=== PATIENT | female | born 1960 | race American Indian/Alaskan Native ===

== ENCOUNTER 2020-07-27 16:09 | Inpatient (IN) | payer MEDICARE ==
--- NOTE | 2020-07-27 17:15 | Emergency Department Report ---
ED General Adult HPI - General Chief complaint: Recheck/Abnormal Lab/Rx Stated complaint: HIGH SODIUM LEVEL PUI?: No Time Seen by Provider: 07/27/20 16:47 Source: EMS ( EMS documentation not available at time of chart dictation ), RN notes reviewed Mode of arrival: Stretcher Limitations: Altered Mental Status, Physical Limitation - History of Present Illness Initial comments: The patient was evaluated in the emergency department for symptoms described in the history of present illness. He/she was evaluated in the context of the global COVID-19 pandemic, which necessitated consideration that the patient might be at risk for infection with the virus that causes COVID-19. Institutional protocols and algorithms that pertain to the evaluation of patients at risk for COVID-19 are in a state of rapid change based on informa tion released by regulatory bodies including the CDC and federal and state organizations. These policies and algorithms were followed during the patient's care in the emergency department. Please note that these policies, procedures and recommendations changed on a rapid basis. Primary CARE doctor: Dr. oKnrad Johnston The patient is a 59-year-old female. She is not known to myself previously. Her past medical history includes high cholesterol, hypertension, insomnia, rhinitis, muscular spasm, dementia, renal insufficiency, seizure disorder The patient is sent to the emergency room by her local [facility] with a reported complaint of "high sodium levels." Patient herself is nonverbal. Patient herself is not able to describe the exacerbating, relieving factors of her presentation, qualitative nature of her symptoms, or radiation factors. The patient is bedbound, nonverbal, but awake. Patient is not accompanied by friends or family at this time for additional information or for collateral information. -: unknown Quality: other Consistency: other Improves with: other Worsens with: other Associated Symptoms: other Treatments Prior to Arrival: other - Related Data Home Medications Medication Instructions Recorded Confirmed Last Taken Acetaminophen [Tylenol] 2 tab PO BID 07/27/20 07/27/20 Unknown Hydralazine HCl 50 mg PO Q8HR 07/27/20 07/27/20 Unknown Melatonin [Melatonin 3MG TAB 3 mg PO QDAY 07/27/20 07/27/20 Unknown RAPDIS] NIFEdipine [Nifedipine ER] 60 mg PO QDAY 07/27/20 07/27/20 Unknown Sennosides [Senna] 2 tab PO DAILY PRN 07/27/20 07/27/20 Unknown Sertraline HCl [Zoloft] 2 tab PO QAM 07/27/20 07/27/20 Unknown donepeziL [Aricept] 10 mg PO QHS 07/27/20 07/27/20 Unknown levETIRAcetam [Keppra] 500 mg PO BID 07/27/20 07/27/20 Unknown polyethylene glycoL 3350 [Miralax 17 gm PO QDAY 07/27/20 07/27/20 Unknown 3350] Allergies Allergy/AdvReac Type Severity Reaction Status Date / Time Unable to Assess Allergy Unverified 07/27/20 19:41 ED Review of Systems ROS: Stated complaint: HIGH SODIUM LEVEL Other details as noted in HPI Comment: Unobtainable due to pts medical conditions ED Past Medical Hx - Medications Home Medications: Home Medications Medication Instructions Recorded Confirmed Last Taken Type Acetaminophen [Tylenol] 2 tab PO BID 07/27/20 07/27/20 Unknown History Hydralazine HCl 50 mg PO Q8HR 07/27/20 07/27/20 Unknown History Melatonin [Melatonin 3MG TAB 3 mg PO QDAY 07/27/20 07/27/20 Unknown History RAPDIS] NIFEdipine [Nifedipine ER] 60 mg PO QDAY 07/27/20 07/27/20 Unknown History Sennosides [Senna] 2 tab PO DAILY PRN 07/27/20 07/27/20 Unknown History Sertraline HCl [Zoloft] 2 tab PO QAM 07/27/20 07/27/20 Unknown History donepeziL [Aricept] 10 mg PO QHS 07/27/20 07/27/20 Unknown History levETIRAcetam [Keppra] 500 mg PO BID 07/27/20 07/27/20 Unknown History polyethylene glycoL 3350 [Miralax 17 gm PO QDAY 07/27/20 07/27/20 Unknown History 3350] ED Physical Exam - General Limitations: Altered Mental Status, Physical Limitation General appearance: in no apparent distress - Head Head exam: Present: atraumatic, normocephalic - Eye Eye exam: Present: normal appearance, PERRL - ENT ENT exam: Present: normal orophraynx, mucous membranes dry, normal external ear exam - Neck Neck exam: Present: normal inspection. Absent: tenderness, meningismus - Respiratory Respiratory exam: Present: normal lung sounds bilaterally. Absent: respiratory distress, wheezes, rales, rhonchi, stridor, decreased breath sounds - Cardiovascular Cardiovascular Exam: Present: regular rate, normal rhythm, normal heart sounds. Absent: bradycardia, tachycardia, irregular rhythm, systolic murmur, diastolic murmur, rubs, gallop - GI/Abdominal GI/Abdominal exam: Present: soft. Absent: distended, tenderness, rebound, rigid, pulsatile mass - Rectal Rectal exam: Absent: normal inspection (Chronic appearing sacral wounds noted, without active superinfection) - Extremities Exam Extremities exam: Present: normal inspection, other (2+ pulses noted in the bilateral upper and lower extremities. There is no palpable cord. negative Homans sign. Muscular compartments are soft. The pelvis is stable.). Absent: pedal edema, calf tenderness - Back Exam Back exam: Present: normal inspection. Absent: tenderness, CVA tenderness (R), CVA tenderness (L), paraspinal tenderness, vertebral tenderness - Neurological Exam Neurological exam: Present: altered, other (The patient is awake. Extraocular movements intact. The patient is nonverbal. Patient appears to be functionally quadriplegic) - Skin Skin exam: Present: warm, dry, intact, normal color. Absent: rash ED Course Vital Signs 07/27/20 07/27/20 07/27/20 17:38 17:46 17:51 Temperature 96.6 F L Pulse Rate 68 Respiratory 21 Rate Blood Pressure 105/73 O2 Sat by Pulse 99 100 Oximetry 07/27/20 07/27/20 07/27/20 18:00 18:30 19:00 Temperature Pulse Rate 68 70 69 Respiratory 21 22 19 Rate Blood Pressure 105/73 100/72 101/72 O2 Sat by Pulse 100 100 100 Oximetry 07/27/20 07/27/20 07/27/20 19:30 19:46 20:00 Temperature Pulse Rate 73 72 73 Respiratory 22 23 Rate Blood Pressure 101/74 110/80 O2 Sat by Pulse 99 99 Oximetry 07/27/20 07/27/20 20:30 21:00 Temperature 99.5 F Pulse Rate 72 78 Respiratory 23 18 Rate Blood Pressure 111/76 113/82 O2 Sat by Pulse 99 Oximetry - Reevaluation(s) Reevaluation #1: 07/27/20 18:08 Differential diagnosis, include but not limited to: Pneumonia, urinary tract infection, dehydration, electrolyte derangement, laboratory/instrument error Assessment and plan: 59-year-old female, who with mild hypothermia , with reassuring vital signs, demented, with evidence of dry mucous membranes, sent here because of reported high sodium levels. Obtain EKG, urinalysis, x-ray of the chest, appropriate laboratory studies, and reassess. 07/27/20 19:01 Patient started on active patient rewarming. Laboratory studies demonstrate hyponatremia, with sodium of 173. Patient approximately 110 pounds, therefore, she is approximately 50 kg. She will be started on dextrose 5% whole, at 150 cc/h, we will discuss with nephrology, and admit to the medical service. Reevaluation #2: 07/27/20 21:29 Dr Domenica Soto to admit - Consultations Consultation #1: 07/27/20 19:31 Discussed history, physical, pertinent laboratory studies with nephrology on- call, Dr. Jackson. His group will follow in consultation. He agrees with current plan of management. BMP recommended every 4 hours. - EJ/Peripheral Line Neck L Time Out Performed: Yes Indications: multiple IV sites needed Skin Cleansed in Sterile Fashion: Yes Size: 20 Dressing Placed: Tegaderm Patient Tolerated Procedure: well ED Medical Decision Making - Lab Data Result diagrams: 07/27/20 17:55 07/27/20 17:55 Vital Signs 07/27/20 07/27/20 07/27/20 17:38 17:46 17:51 Temperature 96.6 F L Pulse Rate 68 Respiratory 21 Rate Blood Pressure 105/73 O2 Sat by Pulse 99 100 Oximetry - EKG Data -: EKG Interpreted by Me EKG shows normal: sinus rhythm Rate: normal - EKG Data When compared to previous EKG there are: previous EKG unavailable 07/27/20 18:07 Sinus rhythm, 72 bpm, left axis deviation, left anterior fascicular block, left ventricular hypertrophy, abnormal EKG, the EKG is no STEMI, but QTC is within normal limits. - Radiology Data Radiology results: pending, report reviewed, image reviewed interpreted by me: 1 view x-ray of the chest, interpreted by myself, negative for acute findings Print Report Referring Physician: AMAURI SUTTON Patient Name: KEILA BULL Date of : 1960 Sex: Female Report Date: 2020-07-27 Report Status: Finalized Findings [facility] [address] [place] [address] XRay Report Signed Patient: KEILA BULL MR#: [id number] : 1960 Acct:[id number] Age/Sex: 59 / F ADM Date: 07/27/20 Loc: ED Attending Dr: Ordering Physician: AMAURI SUTTON MD Date of Service: 07/27/20 Procedure(s): XR chest 1V ap Accession Number(s): [id number] cc: AMAURI SUTTON MD Fluoro Time In Minutes: CHEST 1 VIEW INDICATION / CLINICAL INFORMATION: Weakness. COMPARISON: None available. FINDINGS: SUPPORT DEVICES: None. HEART / MEDIASTINUM: No significant abnormality. LUNGS / PLEURA: No significant pulmonary or pleural abnormality. No pneumothorax. ADDITIONAL FINDINGS: No significant additional findings. IMPRESSION: No acute pulmonary or pleural abnormality Signer Name: Fernando Morillo MD FACR Signed: 07/27/2020 6:01 PM Workstation Name: [id number] Transcribed By: MS Dictated By: Fernando Morillo MD Electronically Authenticated By: Fernando Morillo MD Signed Date/Time: 07/27/201800 DD/ 00 TD/TT: Critical Care Time: Yes Critical care time in (mins) excluding proc time.: 35 Critical care attestation.: If time is entered above; I have spent that time in minutes in the direct care of this critically ill patient, excluding procedure time. ED Disposition Clinical Impression: Hypothermia, Hypernatremia, Dehydration Disposition: DC-09 OP ADMIT IP TO THIS HOSP Is pt being admited?: Yes Does the pt Need Aspirin: No Condition: Serious Referrals: PRIMARY CARE, [Primary Care Provider] - 3-5 Days
--- NOTE | 2020-07-27 18:06 | XRay Report ---
CHEST 1 VIEW INDICATION / CLINICAL INFORMATION: Weakness. COMPARISON: None available. FINDINGS: SUPPORT DEVICES: None. HEART / MEDIASTINUM: No significant abnormality. LUNGS / PLEURA: No significant pulmonary or pleural abnormality. No pneumothorax. ADDITIONAL FINDINGS: No significant additional findings. IMPRESSION: No acute pulmonary or pleural abnormality Signer Name: Fernando Morillo MD FACR Signed: 07/27/2020 6:01 PM Workstation Name: [id number]
[2020-07-27 18:30] LABS: Basophils % (Auto) 0.5 % (0.0-1.8); Eosinophils % (Auto) 0.6 % (0.0-4.3); Lymphocytes # (Auto) 1.6 K/mm3 (1.2-5.4); Lymphocytes % (Auto) 22.1 % (13.4-35.0); Mean Corpuscular HGB Conc 30 % (30-34); Mean Corpuscular Volume 97 fl (79-97); Monocytes # (Auto) 0.6 K/mm3 (0.0-0.8); Monocytes % (Auto) 7.8 % (0.0-7.3); Platelet Count 149 K/mm3 (140-440); Red Blood Count 3.95 M/mm3 (3.65-5.03); Red Cell Distribution Width 17.6 % (13.2-15.2)
[2020-07-27 18:31] LABS: Hematocrit 38.4 % (30.3-42.9); Hemoglobin 11.4 gm/dl (10.1-14.3)
[2020-07-27 18:47] LABS: INR 1.26 (0.87-1.13)
[2020-07-27 18:48] LABS: Alanine Aminotransferase 5 units/L (7-56); Albumin 3.6 g/dL (3.9-5); Blood Urea Nitrogen 51 mg/dL (7-17); Calcium 9.4 mg/dL (8.4-10.2); Hemolysis Index 3
[2020-07-27 18:52] LABS: BUN/Creatinine Ratio 73
[2020-07-27 19:01] LABS: Bacteria,Urine 1+ /HPF (Negative); Bilirubin,Urine NEG (Negative); Blood,Urine NEG (Negative); Color,Urine Yellow (Yellow); Mucus,Urine 2+ /HPF; Renal Epithelial Cells,Urine 1 /LPF
[2020-07-27] MEDS: DEXTROSE 5% IN WATER 1,000 ML IV SCH (19:57)
[2020-07-27] MEDS ORDERED: ACETAMINOPHEN 325 MG TAB PO PRN (22:02)
[2020-07-27] MEDS ORDERED: ONDANSETRON 4 MG/2 ML INJ IV PRN (22:03)
[2020-07-27 22:05] LABS: Blood Urea Nitrogen 54 mg/dL (7-17); Calcium 9.1 mg/dL (8.4-10.2); Hemolysis Index 8
[2020-07-27 22:23] LABS: BUN/Creatinine Ratio 77
[2020-07-27] MEDS ORDERED: HEPARIN 5,000 UNIT/1 ML VIAL ONE (23:41)
[2020-07-28] MEDS: HEPARIN 5,000 UNIT/1 ML VIAL SUB-Q SCH ×3 (00:12→21:08)
[2020-07-28] MEDS: DEXTROSE 5% IN WATER 1,000 ML IV SCH ×2 (03:54→22:22)
[2020-07-28 07:07] LABS: Blood Urea Nitrogen 49 mg/dL (7-17); Calcium 8.8 mg/dL (8.4-10.2); Hemolysis Index 4
[2020-07-28 07:08] LABS: BUN/Creatinine Ratio 82
--- NOTE | 2020-07-28 07:28 | History and Physical Report ---
History of Present Illness Date of examination: 07/27/20 Date of admission: 07/27/20 21:30 Chief complaint: Elevated Sodium Level History of present illness: 59 year old female brought from a alf because of elevated sodium level . Patient is non verbal and there was no history of nausea or vomiting, No history of chest pain, shortness of breath, fever or chills. Past History Past Medical History: hypertension, renal failure, other (DEMENTIA) Medications and Allergies Allergies Allergy/AdvReac Type Severity Reaction Status Date / Time lisinopril Allergy Unknown Verified 07/27/20 21:47 Home Medications Medication Instructions Recorded Confirmed Last Taken Type Acetaminophen [Tylenol] 2 tab PO BID 07/27/20 07/27/20 Unknown History Aspirin [Aspirin BABY CHEW TAB] 81 mg PO QDAY 07/27/20 07/27/20 Unknown History Atorvastatin Calcium [Lipitor] 80 mg PO QHS 07/27/20 07/27/20 Unknown History Baclofen 5 mg PO TID 07/27/20 07/27/20 Unknown History Hydralazine HCl 50 mg PO Q8HR 07/27/20 07/27/20 Unknown History Losartan [Cozaar] 100 mg PO QDAY 07/27/20 07/27/20 Unknown History Melatonin [Melatonin 3MG TAB 3 mg PO QDAY 07/27/20 07/27/20 Unknown History RAPDIS] NIFEdipine [Nifedipine ER] 60 mg PO QDAY 07/27/20 07/27/20 Unknown History Sennosides [Senna] 2 tab PO DAILY PRN 07/27/20 07/27/20 Unknown History Sertraline HCl [Zoloft] 2 tab PO QAM 07/27/20 07/27/20 Unknown History carvediloL [Coreg] 25 mg PO BID 07/27/20 07/27/20 Unknown History cefTRIAXone/NS 1 GM/50 ML 1 gm IV Q24HR 07/27/20 07/27/20 Unknown History [Rocephin/Ns 1 gm/50 ml] cloNIDine-TTS PATCH [Catapres-Tts 1 patch TD Q7D 07/27/20 07/27/20 Unknown History 0.3mg Patch] donepeziL [Aricept] 10 mg PO QHS 07/27/20 07/27/20 Unknown History levETIRAcetam [Keppra] 500 mg PO BID 07/27/20 07/27/20 Unknown History polyethylene glycoL 3350 [Miralax 17 gm PO QDAY 07/27/20 07/27/20 Unknown History 3350] Active Meds: Active Medications Acetaminophen (Tylenol) 650 mg PO Q4H PRN PRN Reason: Fever >101 Heparin Sodium (Porcine) (Heparin) 5,000 unit SUB-Q Q12HR RACHEL Last Admin: 07/28/20 00:12 Dose: 5,000 unit Documented by: Dextrose (D5w) 1,000 mls @ 150 mls/hr IV DIRECT RACHEL Last Admin: 07/28/20 03:54 Dose: 150 mls/hr Documented by: Ondansetron HCl (Zofran) 4 mg IV Q8H PRN PRN Reason: Nausea And Vomiting Review of Systems Constitutional: weakness, lethargy, no fever, no chills, no sweats, no night sweats, no fatigue Eyes: bilateral: other (NO BILATERAL EYE SYMPTOMS) Ears, nose, mouth and throat: no ear pain, no ear discharge Breasts: deferred Cardiovascular: no chest pain, no orthopnea, no palpitations, no rapid/irregular heart beat, no syncope, no lightheadedness, no shortness of breath Respiratory: no cough, no cough with sputum, no excessive sputum, no hemoptysis, no shortness of breath, no congestion Gastrointestinal: no abdominal pain, no nausea, no vomiting, no diarrhea, no constipation, no change in bowel habits, no hematemesis, no coffee ground emesis Rectal: no pain, no itching Musculoskeletal: no neck stiffness, no neck pain, no shooting arm pain, no arm numbness/tingling, no low back pain, no shooting leg pain, no leg numbness/tingling Integumentary: no rash, no pruritis, no redness, no sores, no wounds, no jaundice, no bullae, no lesions Neurological: weakness, no paralysis, no parathesias, no numbness, no tingling, no seizures, no syncope, no tremors, no convulsions, no aphasia Psychiatric: no anxiety Endocrine: no polydipsia, no polyuria, no nocturia, no excessive sweating, no fl ushing, no thyroid mass Hematologic/Lymphatic: no easy bruising, no easy bleeding Exam - Constitutional Vitals: Temp Pulse Resp BP Pulse Ox 97.4 F L 50 L 16 116/79 98 07/28/20 04:29 07/28/20 04:29 07/28/20 04:29 07/28/20 04:29 07/28/20 04:29 General appearance: Present: no acute distress - EENT Eyes: Present: PERRL ENT: clear oral mucosa - Neck Neck: Present: supple, normal ROM - Respiratory Respiratory effort: normal - Cardiovascular Rhythm: regular Heart Sounds: Present: S1 & S2. Absent: gallop, systolic murmur, diastolic murmur - Extremities Extremities: no ischemia, No edema Peripheral Pulses: within normal limits - Abdominal General gastrointestinal: Present: soft, non-tender, non-distended. Absent: tender, distended, rigid, hepatomegaly, splenomegaly Female genitourinary: Present: deferred - Rectal Rectal Exam: deferred - Integumentary Integumentary: Present: clear, warm, dry. Absent: erythema - Musculoskeletal Musculoskeletal: generalized weakness HEART Score - HEART Score Age: 45-65 Risk factors: No known risk factors Troponin: < normal limit - Critical Actions Critical Actions: 0-3 pts:0.9-1.7%risk of adverse cardiac event.Candidate for discharge Results - Labs CBC & Chem 7: 07/27/20 17:55 07/28/20 06:21 Labs: Laboratory Last Values WBC 7.1 K/mm3 (4.5-11.0) 07/27/20 17:55 RBC 3.95 M/mm3 (3.65-5.03) 07/27/20 17:55 Hgb 11.4 gm/dl (10.1-14.3) 07/27/20 17:55 Hct 38.4 % (30.3-42.9) 07/27/20 17:55 MCV 97 fl (79-97) 07/27/20 17:55 MCH 29 pg (28-32) 07/27/20 17:55 MCHC 30 % (30-34) 07/27/20 17:55 RDW 17.6 % (13.2-15.2) H 07/27/20 17:55 Plt Count 149 K/mm3 (140-440) 07/27/20 17:55 Lymph % (Auto) 22.1 % (13.4-35.0) 07/27/20 17:55 [place] % (Auto) 7.8 % (0.0-7.3) H 07/27/20 17:55 Eos % (Auto) 0.6 % (0.0-4.3) 07/27/20 17:55 Baso % (Auto) 0.5 % (0.0-1.8) 07/27/20 17:55 Lymph # (Auto) 1.6 K/mm3 (1.2-5.4) 07/27/20 17:55 [place] # (Auto) 0.6 K/mm3 (0.0-0.8) 07/27/20 17:55 Eos # (Auto) 0.0 K/mm3 (0.0-0.4) 07/27/20 17:55 Baso # (Auto) 0.0 K/mm3 (0.0-0.1) 07/27/20 17:55 Seg Neutrophils % 69.0 % (40.0-70.0) 07/27/20 17:55 Seg Neutrophils # 4.9 K/mm3 (1.8-7.7) 07/27/20 17:55 PT 16.1 Sec. (12.2-14.9) H 07/27/20 17:55 INR 1.26 (0.87-1.13) H 07/27/20 17:55 Sodium 167 mmol/L (137-145) H* 07/28/20 06:21 Potassium 2.9 mmol/L (3.6-5.0) L* 07/28/20 06:21 Chloride 130.9 mmol/L (98-107) H 07/28/20 06:21 Carbon Dioxide 25 mmol/L (22-30) 07/28/20 06:21 Anion Gap 14 mmol/L 07/28/20 06:21 BUN 49 mg/dL (7-17) H 07/28/20 06:21 Creatinine 0.6 mg/dL (0.6-1.2) 07/28/20 06:21 Estimated GFR > 60 ml/min 07/28/20 06:21 BUN/Creatinine Ratio 82 % 07/28/20 06:21 Glucose 171 mg/dL (65-100) H 07/28/20 06:21 Lactic Acid 1.40 mmol/L (0.7-2.0) 07/27/20 17:55 Calcium 8.8 mg/dL (8.4-10.2) 07/28/20 06:21 Magnesium 3.00 mg/dL (1.7-2.3) H 07/27/20 17:55 Total Bilirubin 0.30 mg/dL (0.1-1.2) 07/27/20 17:55 AST 11 units/L (5-40) 07/27/20 17:55 ALT 5 units/L (7-56) L 07/27/20 17:55 Alkaline Phosphatase 60 units/L (35-129) 07/27/20 17:55 Total Creatine Kinase 175 units/L (30-135) H 07/27/20 17:55 Total Protein 7.8 g/dL (6.3-8.2) 07/27/20 17:55 Albumin 3.6 g/dL (3.9-5) L 07/27/20 17:55 Albumin/Globulin Ratio 0.9 % 07/27/20 17:55 TSH 0.701 mlU/mL (0.270-4.200) 07/27/20 17:55 Urine Color Yellow (Yellow) 07/27/20 17:51 Urine Turbidity Clear (Clear) 07/27/20 17:51 Urine pH 5.0 (5.0-7.0) 07/27/20 17:51 Ur Specific [place] 1.031 (1.003-1.030) H 07/27/20 17:51 Urine Protein 30 mg/dl mg/dL (Negative) 07/27/20 17:51 Urine Glucose (UA) Neg mg/dL (Negative) 07/27/20 17:51 Urine Ketones Neg mg/dL (Negative) 07/27/20 17:51 Urine Blood Neg (Negative) 07/27/20 17:51 Urine Nitrite Neg (Negative) 07/27/20 17:51 Urine Bilirubin Neg (Negative) 07/27/20 17:51 Urine Urobilinogen 2.0 mg/dL (<2.0) 07/27/20 17:51 Ur Leukocyte Esterase Neg (Negative) 07/27/20 17:51 Urine WBC (Auto) 3.0 /HPF (0.0-6.0) 07/27/20 17:51 Urine RBC (Auto) 3.0 /HPF (0.0-6.0) 07/27/20 17:51 U Epithel Cells (Auto) < 1.0 /HPF (0-13.0) 07/27/20 17:51 Urine Bacteria (Auto) 1+ /HPF (Negative) 07/27/20 17:51 Ur Renal Epithelial Cell 1 /LPF 07/27/20 17:51 Urine Mucus 2+ /HPF 07/27/20 17:51 Salicylates < 0.3 mg/dL (2.8-20.0) L 07/27/20 17:55 Acetaminophen 5.0 ug/mL (10.0-30.0) L 07/27/20 17:55 Microbiology: Microbiology 07/27/20 17:55 Peripheral/Venous Blood Culture - Preliminary Culture in Progress 07/27/20 17:55 Peripheral/Venous Blood Culture - Preliminary Culture in Progress Sullivan/IV: Voiding Method Incontinent IV Catheter Type [Left Hand] INT / Saline Lock IV Catheter Type [Left Peripheral IV External Jugular] Assessment and Plan - Patient Problems (1) Hypokalemia Current Visit: Yes Status: Acute Plan to address problem: I.V POTASSIUM REPLACEMENT (2) Dehydration Current Visit: Yes Status: Acute Plan to address problem: I.V FLUID REHYDRATION (3) Hypernatremia Current Visit: Yes Status: Acute Plan to address problem: 1. I.V D5W FLUID REHYDRATION 2. BMP TO MORNITOR SODIUM LEVEL
[2020-07-28] MEDS ORDERED: POTASSIUM CHLORIDE 10 MEQ 10 MEQ/100 ML BAG IV SCH (08:00)
--- NOTE | 2020-07-28 09:27 | Progress Note ---
<ANTONIOKARTHIKSTEEV Fuentes - Last Filed: 07/28/20 13:39> Hospitalist Physical - Constitutional Vitals: Temp Pulse Resp BP Pulse Ox 97.4 F L 50 L 16 116/79 98 07/28/20 04:29 07/28/20 04:29 07/28/20 04:29 07/28/20 04:29 07/28/20 04:29 Results - Labs CBC & Chem 7: 07/27/20 17:55 07/28/20 06:21 Labs: Laboratory Last Values WBC 7.1 K/mm3 (4.5-11.0) 07/27/20 17:55 RBC 3.95 M/mm3 (3.65-5.03) 07/27/20 17:55 Hgb 11.4 gm/dl (10.1-14.3) 07/27/20 17:55 Hct 38.4 % (30.3-42.9) 07/27/20 17:55 MCV 97 fl (79-97) 07/27/20 17:55 MCH 29 pg (28-32) 07/27/20 17:55 MCHC 30 % (30-34) 07/27/20 17:55 RDW 17.6 % (13.2-15.2) H 07/27/20 17:55 Plt Count 149 K/mm3 (140-440) 07/27/20 17:55 Lymph % (Auto) 22.1 % (13.4-35.0) 07/27/20 17:55 [place] % (Auto) 7.8 % (0.0-7.3) H 07/27/20 17:55 Eos % (Auto) 0.6 % (0.0-4.3) 07/27/20 17:55 Baso % (Auto) 0.5 % (0.0-1.8) 07/27/20 17:55 Lymph # (Auto) 1.6 K/mm3 (1.2-5.4) 07/27/20 17:55 [place] # (Auto) 0.6 K/mm3 (0.0-0.8) 07/27/20 17:55 Eos # (Auto) 0.0 K/mm3 (0.0-0.4) 07/27/20 17:55 Baso # (Auto) 0.0 K/mm3 (0.0-0.1) 07/27/20 17:55 Seg Neutrophils % 69.0 % (40.0-70.0) 07/27/20 17:55 Seg Neutrophils # 4.9 K/mm3 (1.8-7.7) 07/27/20 17:55 PT 16.1 Sec. (12.2-14.9) H 07/27/20 17:55 INR 1.26 (0.87-1.13) H 07/27/20 17:55 Sodium 167 mmol/L (137-145) H* 07/28/20 06:21 Potassium 2.9 mmol/L (3.6-5.0) L* 07/28/20 06:21 Chloride 130.9 mmol/L (98-107) H 07/28/20 06:21 Carbon Dioxide 25 mmol/L (22-30) 07/28/20 06:21 Anion Gap 14 mmol/L 07/28/20 06:21 BUN 49 mg/dL (7-17) H 07/28/20 06:21 Creatinine 0.6 mg/dL (0.6-1.2) 07/28/20 06:21 Estimated GFR > 60 ml/min 07/28/20 06:21 BUN/Creatinine Ratio 82 % 07/28/20 06:21 Glucose 171 mg/dL (65-100) H 07/28/20 06:21 Lactic Acid 1.40 mmol/L (0.7-2.0) 07/27/20 17:55 Calcium 8.8 mg/dL (8.4-10.2) 07/28/20 06:21 Magnesium 3.00 mg/dL (1.7-2.3) H 07/27/20 17:55 Total Bilirubin 0.30 mg/dL (0.1-1.2) 07/27/20 17:55 AST 11 units/L (5-40) 07/27/20 17:55 ALT 5 units/L (7-56) L 07/27/20 17:55 Alkaline Phosphatase 60 units/L (35-129) 07/27/20 17:55 Total Creatine Kinase 175 units/L (30-135) H 07/27/20 17:55 Total Protein 7.8 g/dL (6.3-8.2) 07/27/20 17:55 Albumin 3.6 g/dL (3.9-5) L 07/27/20 17:55 Albumin/Globulin Ratio 0.9 % 07/27/20 17:55 TSH 0.701 mlU/mL (0.270-4.200) 07/27/20 17:55 Urine Color Yellow (Yellow) 07/27/20 17:51 Urine Turbidity Clear (Clear) 07/27/20 17:51 Urine pH 5.0 (5.0-7.0) 07/27/20 17:51 Ur Specific [place] 1.031 (1.003-1.030) H 07/27/20 17:51 Urine Protein 30 mg/dl mg/dL (Negative) 07/27/20 17:51 Urine Glucose (UA) Neg mg/dL (Negative) 07/27/20 17:51 Urine Ketones Neg mg/dL (Negative) 07/27/20 17:51 Urine Blood Neg (Negative) 07/27/20 17:51 Urine Nitrite Neg (Negative) 07/27/20 17:51 Urine Bilirubin Neg (Negative) 07/27/20 17:51 Urine Urobilinogen 2.0 mg/dL (<2.0) 07/27/20 17:51 Ur Leukocyte Esterase Neg (Negative) 07/27/20 17:51 Urine WBC (Auto) 3.0 /HPF (0.0-6.0) 07/27/20 17:51 Urine RBC (Auto) 3.0 /HPF (0.0-6.0) 07/27/20 17:51 U Epithel Cells (Auto) < 1.0 /HPF (0-13.0) 07/27/20 17:51 Urine Bacteria (Auto) 1+ /HPF (Negative) 07/27/20 17:51 Ur Renal Epithelial Cell 1 /LPF 07/27/20 17:51 Urine Mucus 2+ /HPF 07/27/20 17:51 Salicylates < 0.3 mg/dL (2.8-20.0) L 07/27/20 17:55 Acetaminophen 5.0 ug/mL (10.0-30.0) L 07/27/20 17:55 Microbiology: Microbiology 07/27/20 17:55 Peripheral/Venous Blood Culture - Preliminary Culture in Progress 07/27/20 17:55 Peripheral/Venous Blood Culture - Preliminary Culture in Progress Sullivan/IV: Voiding Method Incontinent IV Catheter Type [Left Hand] INT / Saline Lock IV Catheter Type [Left Peripheral IV External Jugular] Active Medications - Current Medications Current Medications: Generic Name Dose Route Start Last Admin Trade Name Freq PRN Reason Stop Dose Admin Acetaminophen 650 mg 07/27/20 22:02 Tylenol PO Q4H PRN Fever >101 Aspirin 81 mg 07/28/20 10:00 Baby Aspirin PO QDAY RACHEL Atorvastatin Calcium 80 mg 07/28/20 22:00 Lipitor PO QHS RACHEL Baclofen 5 mg 07/28/20 14:00 Lioresal PO TID RACHEL Donepezil HCl 10 mg 07/28/20 22:00 Aricept PO QHS RACHEL Heparin Sodium (Porcine) 5,000 unit 07/27/20 22:00 07/28/20 09:26 Heparin SUB-Q 5,000 unit Q12HR RACHEL Administration Dextrose 1,000 mls @ 150 mls/hr 07/27/20 19:00 07/28/20 03:54 D5w IV 150 mls/hr DIRECT RACHEL Administration Levetiracetam 500 mg/ Dextrose 105 mls @ 400 mls/hr 07/28/20 10:00 IV Q12HR RACHEL Ondansetron HCl 4 mg 07/27/20 22:03 Zofran IV Q8H PRN Nausea And Vomiting Sertraline HCl 200 mg 07/28/20 11:00 Zoloft PO QAM RACHEL Nutrition/Malnutrition Assess - Dietary Evaluation Nutrition/Malnutrition Findings: Nutrition Notes Start: 07/28/20 11:01 Freq: Status: Active Protocol: Document 07/28/20 11:02 EDUARDO (Rec: 07/28/20 11:15 EDUARDO [id number]) Co-Sign 07/28/20 11:02 Nutrition Notes Need for Assessment generated from: Low BMI Initial or Follow up Assessment Current Diagnosis Decubitus(Pressure Ulcer), Hypertension,Hyperlipidemia Other Pertinent Diagnosis Dehydration, hypernatremia, hypokalemia, dementia, renal failure, seizure Current Diet Low Sodium Labs/Tests Na 167 K 2.9 BUN 49 BG 171 Pertinent Medications D5W 150 ml/hr KCl 10 meq/100ml/hr Heparin Height 5 ft 6 in Weight 48.6 kg Anselmo Body Weight (kg) 59.09 BMI 17.2 Weight Status Underweight Subjective/Other Information Screened for low BMI. Pt nonverbal. Per RN, pt holding food in mouth. LAUN[employer] MARKER SUPERVISOR evaluation ordered. Burn Absent Trauma Absent Difficulty In Swallowing Current % PO Negligible Minimum of two criteria No physical signs of malnutrition #1 Nutrition Diagnosis Inadequate oral intake Etiology swallowing difficulty As Evidenced by Signs and Symptoms pt holding food in mouth, consuming 0% meals Is patient on ventilator? No Is Patient Ambulatory and/or Out of Bed No REE-([facility]-confined to bed) 1310.184 Kcal/Kg value to use for calculation 31 Approximate Energy Requirements Using 1507 kcal/Kg Calculation Used for Recommendations Kcal/kg Additional Notes Pro: 39-49 g (0.8-1 g/kg) Fluid: 1 ml/kcal Nutrition Intervention Change Diet Order: Per LAUNDRY MARKER SUPERVISOR Goal #1 Meet at least 80% energy and protein needs Anticipated Discharge Needs: Unable to determine at this time Follow-Up By: 07/30/20 Additional Comments F/U for hypernatremia, hypokalemia, LAUNDRY MARKER SUPERVISOR evaluation, and intakes <DANILO CAMPO - Last Filed: 07/28/20 14:34> Assessment and Plan - Patient Problems (1) Hypernatremia Current Visit: Yes Status: Acute Plan to address problem: Admit sodium 173, 07/28 Na 167 Nephrology consulted in the ED MIVF: D5W Trend BMP, every 6hours (2) Hyperchloremia Current Visit: Yes Status: Acute Plan to address problem: - Admit Chloride 135.1, 07/28 13.9 - Trend BMP - MIVF: D5W (3) Hypokalemia Current Visit: Yes Status: Acute Plan to address problem: Admit potassium 3.5repleted 07/28 potassium 2.9, replete with 40 MEQ IV KCl Trend BMP Repeat as needed Nephrology consulted (4) Hypothermia Current Visit: Yes Status: Acute Plan to address problem: -Hypothermia in the ED 96.6 -Trending up now -Bairhugger as needed (5) Prerenal azotemia Current Visit: Yes Status: Acute Plan to address problem: Admit BUN 54, 07/28 BUN 49 MIVF Trend BMP Noted no urine output recorded, RN conducted a bladder scan which showed no urine in bladder 07/28 renal ultrasound pending (6) Seizures Current Visit: Yes Status: Chronic Plan to address problem: - Restarted home Keppra, changed to IV - Seizure precautions (7) Hypertension Current Visit: Yes Status: Chronic Plan to address problem: - Continue to monitor BP - Restart home medications when needed - BP monitoring per protocol (8) Dementia Current Visit: Yes Status: Chronic Plan to address problem: - Restarted home medication - Supportive care - Redirection and verbal deescalation when needed (9) HLD (hyperlipidemia) Current Visit: Yes Status: Chronic Plan to address problem: - Continue home statin (10) CVA, old, dysphagia Current Visit: Yes Status: Chronic Plan to address problem: - PMH of CVA with RHP and dysphasia - ST consulted - Supportive care - Aspiration and fall precautions - Restarted statin and aspirin, will add antihypertensives as needed (11) DVT prophylaxis Current Visit: Yes Status: Acute Plan to address problem: - Heparin subq - SCDs to BLE while in bed History Interval history: 59 year old female with HTN, dementia, CVA with RHP and dysphagia, nonverbal/bedbound, multiple pressure ulcers, depression, seizures, HLD, GISELE, insomnia and muscle spasm who presented on 07/27 for her care home for hypernatremia (Na 173), hypokalemia (3.5), hypothermia and dehydration. Nephrology was consulted for her electrolyte derangements. This morning the patient has severe hypokalemia (2.9) and her hypernatremia (167) is improving. The patient is holding her breakfast in her mouth therefore ST eval was ordered. RN ordered WOCN consult. Hospitalist Physical - Constitutional Vitals: Temp Pulse Resp BP Pulse Ox 97.4 F L 50 L 16 116/79 98 07/28/20 04:29 07/28/20 04:29 07/28/20 04:29 07/28/20 04:29 07/28/20 04:29 General appearance: Present: no acute distress, cachectic - EENT Eyes: Present: PERRL, EOM intact ENT: poor dentition - Neck Neck: Present: normal ROM - Respiratory Respiratory effort: normal Respiratory: bilateral: CTA - Cardiovascular Rhythm: regular Heart Sounds: Present: S1 & S2. Absent: systolic murmur, diastolic murmur - Extremities Extremities: no ischemia, pulses intact, pulses symmetrical, No edema, normal temperature, normal color Peripheral Pulses: within normal limits - Abdominal General gastrointestinal: soft, non-tender, non-distended, normal bowel sounds - Integumentary Integumentary: Present: warm, dry - Psychiatric Psychiatric: other (nonverbal, does not follow commands, grimace to painful stimuli x4 extremites) - Neurologic Neurologic: no CNII-XII intact (left sided gaze preference), focal deficits (left sided gaze preference, RHP), no moves all extremities (RHP) HEART Score - HEART Score Age: 45-65 Risk factors: No known risk factors Troponin: < normal limit - Critical Actions Critical Actions: 0-3 pts:0.9-1.7%risk of adverse cardiac event.Candidate for discharge Results - Labs CBC & Chem 7: 07/27/20 17:55 07/28/20 06:21 Labs: Laboratory Last Values WBC 7.1 K/mm3 (4.5-11.0) 07/27/20 17:55 RBC 3.95 M/mm3 (3.65-5.03) 07/27/20 17:55 Hgb 11.4 gm/dl (10.1-14.3) 07/27/20 17:55 Hct 38.4 % (30.3-42.9) 07/27/20 17:55 MCV 97 fl (79-97) 07/27/20 17:55 MCH 29 pg (28-32) 07/27/20 17:55 MCHC 30 % (30-34) 07/27/20 17:55 RDW 17.6 % (13.2-15.2) H 07/27/20 17:55 Plt Count 149 K/mm3 (140-440) 07/27/20 17:55 Lymph % (Auto) 22.1 % (13.4-35.0) 07/27/20 17:55 [place] % (Auto) 7.8 % (0.0-7.3) H 07/27/20 17:55 Eos % (Auto) 0.6 % (0.0-4.3) 07/27/20 17:55 Baso % (Auto) 0.5 % (0.0-1.8) 07/27/20 17:55 Lymph # (Auto) 1.6 K/mm3 (1.2-5.4) 07/27/20 17:55 [place] # (Auto) 0.6 K/mm3 (0.0-0.8) 07/27/20 17:55 Eos # (Auto) 0.0 K/mm3 (0.0-0.4) 07/27/20 17:55 Baso # (Auto) 0.0 K/mm3 (0.0-0.1) 07/27/20 17:55 Seg Neutrophils % 69.0 % (40.0-70.0) 07/27/20 17:55 Seg Neutrophils # 4.9 K/mm3 (1.8-7.7) 07/27/20 17:55 PT 16.1 Sec. (12.2-14.9) H 07/27/20 17:55 INR 1.26 (0.87-1.13) H 07/27/20 17:55 Sodium 167 mmol/L (137-145) H* 07/28/20 06:21 Potassium 2.9 mmol/L (3.6-5.0) L* 07/28/20 06:21 Chloride 130.9 mmol/L (98-107) H 07/28/20 06:21 Carbon Dioxide 25 mmol/L (22-30) 07/28/20 06:21 Anion Gap 14 mmol/L 07/28/20 06:21 BUN 49 mg/dL (7-17) H 07/28/20 06:21 Creatinine 0.6 mg/dL (0.6-1.2) 07/28/20 06:21 Estimated GFR > 60 ml/min 07/28/20 06:21 BUN/Creatinine Ratio 82 % 07/28/20 06:21 Glucose 171 mg/dL (65-100) H 07/28/20 06:21 Lactic Acid 1.40 mmol/L (0.7-2.0) 07/27/20 17:55 Calcium 8.8 mg/dL (8.4-10.2) 07/28/20 06:21 Magnesium 3.00 mg/dL (1.7-2.3) H 07/27/20 17:55 Total Bilirubin 0.30 mg/dL (0.1-1.2) 07/27/20 17:55 AST 11 units/L (5-40) 07/27/20 17:55 ALT 5 units/L (7-56) L 07/27/20 17:55 Alkaline Phosphatase 60 units/L (35-129) 07/27/20 17:55 Total Creatine Kinase 175 units/L (30-135) H 07/27/20 17:55 Total Protein 7.8 g/dL (6.3-8.2) 07/27/20 17:55 Albumin 3.6 g/dL (3.9-5) L 07/27/20 17:55 Albumin/Globulin Ratio 0.9 % 07/27/20 17:55 TSH 0.701 mlU/mL (0.270-4.200) 07/27/20 17:55 Urine Color Yellow (Yellow) 07/27/20 17:51 Urine Turbidity Clear (Clear) 07/27/20 17:51 Urine pH 5.0 (5.0-7.0) 07/27/20 17:51 Ur Specific [place] 1.031 (1.003-1.030) H 07/27/20 17:51 Urine Protein 30 mg/dl mg/dL (Negative) 07/27/20 17:51 Urine Glucose (UA) Neg mg/dL (Negative) 07/27/20 17:51 Urine Ketones Neg mg/dL (Negative) 07/27/20 17:51 Urine Blood Neg (Negative) 07/27/20 17:51 Urine Nitrite Neg (Negative) 07/27/20 17:51 Urine Bilirubin Neg (Negative) 07/27/20 17:51 Urine Urobilinogen 2.0 mg/dL (<2.0) 07/27/20 17:51 Ur Leukocyte Esterase Neg (Negative) 07/27/20 17:51 Urine WBC (Auto) 3.0 /HPF (0.0-6.0) 07/27/20 17:51 Urine RBC (Auto) 3.0 /HPF (0.0-6.0) 07/27/20 17:51 U Epithel Cells (Auto) < 1.0 /HPF (0-13.0) 07/27/20 17:51 Urine Bacteria (Auto) 1+ /HPF (Negative) 07/27/20 17:51 Ur Renal Epithelial Cell 1 /LPF 07/27/20 17:51 Urine Mucus 2+ /HPF 07/27/20 17:51 Salicylates < 0.3 mg/dL (2.8-20.0) L 07/27/20 17:55 Acetaminophen 5.0 ug/mL (10.0-30.0) L 07/27/20 17:55 Microbiology: Microbiology 07/27/20 17:55 Peripheral/Venous Blood Culture - Preliminary Culture in Progress 07/27/20 17:55 Peripheral/Venous Blood Culture - Preliminary Culture in Progress Sullivan/IV: Voiding Method Incontinent IV Catheter Type [Left Hand] INT / Saline Lock IV Catheter Type [Left Peripheral IV External Jugular] Active Medications - Current Medications Current Medications: Generic Name Dose Route Start Last Admin Trade Name Freq PRN Reason Stop Dose Admin Acetaminophen 650 mg 07/27/20 22:02 Tylenol PO Q4H PRN Fever >101 Heparin Sodium (Porcine) 5,000 unit 07/27/20 22:00 07/28/20 00:12 Heparin SUB-Q 5,000 unit Q12HR RACHEL Administration Dextrose 1,000 mls @ 150 mls/hr 07/27/20 19:00 07/28/20 03:54 D5w IV 150 mls/hr DIRECT RACHEL Administration Potassium Chloride 10 meq in 100 mls @ 100 mls/hr 07/28/20 09:00 Kcl 10meq/100ml IV 07/28/20 12:59 Q1H RACHEL Levetiracetam 500 mg/ Dextrose 105 mls @ 400 mls/hr 07/28/20 10:00 IV Q12HR RACHEL Ondansetron HCl 4 mg 07/27/20 22:03 Zofran IV Q8H PRN Nausea And Vomiting
[2020-07-28] MEDS: POTASSIUM CHLORIDE 10 MEQ 10 MEQ/100 ML BAG IV SCH ×4 (09:28→13:51)
[2020-07-28] MEDS ORDERED: SERTRALINE 100 MG TAB PO SCH (10:00)
[2020-07-28] MEDS ORDERED: MELATONIN 3 MG PO SCH (10:00)
--- NOTE | 2020-07-28 13:29 | Consultation ---
History of Present Illness - Reason for Consult Consult date: 07/28/20 hypernatremia Requesting physician: AMAURI SUTTON - History of Present Illness 59-year-old lady brought from the retirement because of increased sodium. Patient is nonverbal and arousable to give a history. She has a history of hypertension and dementia. Sodium was 173 mmol/L potassium not 2.9 mmol/L. BUN/creatinine also elevated at 49/0.6 mg/dL. I am consulted to assist managing this. Past History Past Medical History: hypertension, renal failure, other (DEMENTIA) Social history: denies: Lives alone, smoking, alcohol abuse, prescription drug abuse, IV drug use Medications and Allergies Allergies Allergy/AdvReac Type Severity Reaction Status Date / Time lisinopril Allergy Unknown Verified 07/27/20 21:47 Home Medications Medication Instructions Recorded Confirmed Last Taken Type Acetaminophen [Tylenol] 2 tab PO BID 07/27/20 07/27/20 Unknown History Aspirin [Aspirin BABY CHEW TAB] 81 mg PO QDAY 07/27/20 07/27/20 Unknown History Atorvastatin Calcium [Lipitor] 80 mg PO QHS 07/27/20 07/27/20 Unknown History Baclofen 5 mg PO TID 07/27/20 07/27/20 Unknown History Hydralazine HCl 50 mg PO Q8HR 07/27/20 07/27/20 Unknown History Losartan [Cozaar] 100 mg PO QDAY 07/27/20 07/27/20 Unknown History Melatonin [Melatonin 3MG TAB 3 mg PO QDAY 07/27/20 07/27/20 Unknown History RAPDIS] NIFEdipine [Nifedipine ER] 60 mg PO QDAY 07/27/20 07/27/20 Unknown History Sennosides [Senna] 2 tab PO DAILY PRN 07/27/20 07/27/20 Unknown History Sertraline HCl [Zoloft] 2 tab PO QAM 07/27/20 07/27/20 Unknown History carvediloL [Coreg] 25 mg PO BID 07/27/20 07/27/20 Unknown History cefTRIAXone/NS 1 GM/50 ML 1 gm IV Q24HR 07/27/20 07/27/20 Unknown History [Rocephin/Ns 1 gm/50 ml] cloNIDine-TTS PATCH [Catapres-Tts 1 patch TD Q7D 07/27/20 07/27/20 Unknown History 0.3mg Patch] donepeziL [Aricept] 10 mg PO QHS 07/27/20 07/27/20 Unknown History levETIRAcetam [Keppra] 500 mg PO BID 07/27/20 07/27/20 Unknown History polyethylene glycoL 3350 [Miralax 17 gm PO QDAY 07/27/20 07/27/20 Unknown History 3350] Active Meds: Active Medications Acetaminophen (Tylenol) 650 mg PO Q4H PRN PRN Reason: Fever >101 Aspirin (Baby Aspirin) 81 mg PO QDAY RACHEL Atorvastatin Calcium (Lipitor) 80 mg PO QHS RACHEL Baclofen (Lioresal) 5 mg PO TID RACHEL Donepezil HCl (Aricept) 10 mg PO QHS RACHEL Heparin Sodium (Porcine) (Heparin) 5,000 unit SUB-Q Q12HR RACHEL Last Admin: 07/28/20 09:26 Dose: 5,000 unit Documented by: Dextrose (D5w) 1,000 mls @ 150 mls/hr IV DIRECT RACHEL Last Admin: 07/28/20 03:54 Dose: 150 mls/hr Documented by: Levetiracetam 500 mg/ Dextrose 105 mls @ 400 mls/hr IV Q12HR RACHEL Ondansetron HCl (Zofran) 4 mg IV Q8H PRN PRN Reason: Nausea And Vomiting Sertraline HCl (Zoloft) 200 mg PO QAM RACHEL Review of Systems ROS unobtainable: due to mental status Exam - Vital Signs Vital signs: Vital Signs Pulse Ox 99 07/27/20 17:38 Results - Lab Results 07/27/20 17:55 07/28/20 06:21 Most recent lab results Calcium 8.8 mg/dL (8.4-10.2) 07/28/20 06:21 Magnesium 3.00 mg/dL (1.7-2.3) H 07/27/20 17:55 Assessment and Plan - Patient Problems (1) Hypernatremia Current Visit: Yes Status: Acute Plan to address problem: Hypernatremia probably secondary to decreased free water intake. Need to rule rule out sepsis. Continue free water replacement intravenously. Follow-up sodium closely and adjust water replacement accordingly (2) Hypokalemia Current Visit: Yes Status: Acute Plan to address problem: Probably secondary to decreased intake of potassium rich foods. Supplement potassium intravenously and follow-up levels (3) Hypothermia Current Visit: Yes Status: Acute Plan to address problem: Need to rule out sepsis. (4) Prerenal azotemia Current Visit: Yes Status: Acute Plan to address problem: Probably secondary to volume depletion. Will get bladder scan to exclude urinary retention since patient has not made any urine in the last 8 hours (5) CVA, old, dysphagia Current Visit: Yes Status: Chronic Plan to address problem: Continue antiplatelet agents. (6) Dementia Current Visit: Yes Status: Chronic Plan to address problem: Baseline dementia with worsening mental status. Follow-up closely
[2020-07-28] MEDS ORDERED: NON-FORMULARY EACH (Baclofen [Baclofen] 5 MG) PO SCH (14:00)
[2020-07-28] MEDS: levETIRAcetam 500 MG in DEXTROSE 5% IN WATER 100 ML IV SCH ×2 (15:08→21:05)
--- NOTE | 2020-07-28 18:00 | Ultrasound Report ---
ULTRASOUND RENAL INDICATION: decreased UOP. COMPARISON: No relevant prior imaging study available. FINDINGS: RIGHT KIDNEY: Size: 10.2 cm. Echogenicity: Normal. Cortical thickness: Normal. Stones: None. Hydronephrosis: None. Cyst or mass: None. LEFT KIDNEY: Size: 10.3 cm. Echogenicity: Normal. Cortical thickness: Normal. Stones: None. Hydronephrosis: None. Cyst or mass: None. Urinary Bladder: Distended.. Free Fluid: None. Additional Findings: Probable 2.7 cm uterine fundal fibroid. Endometrial echo complex is 8 mm in thic kness. IMPRESSION 1. No acute sonographic abnormality of the kidneys. 2. The bladder is distended. 3. In addition to a probable 2.7 cm uterine fundal fibroid, the endometrial echo complex measures 8 m m in thickness which is mildly thickened for a postmenopausal patient. Follow-up is recommended. Signer Name: Jacky Daley MD Signed: 07/28/2020 5:56 PM Workstation Name: [id number]
[2020-07-28] MEDS: ASPIRIN 81 MG TAB CHEW PO SCH (18:31)
[2020-07-28] MEDS: BACLOFEN 10 MG TAB PO SCH ×2 (18:33→20:37)
[2020-07-28] MEDS: SERTRALINE 100 MG TAB PO SCH (18:33)
[2020-07-28 20:14] LABS: Blood Urea Nitrogen 39 mg/dL (7-17); Calcium 8.9 mg/dL (8.4-10.2); Hemolysis Index 21
[2020-07-28 20:23] LABS: BUN/Creatinine Ratio 78
[2020-07-28] MEDS: DONEPEZIL 10 MG TAB PO SCH (21:06)
[2020-07-28] MEDS ORDERED: NON-FORMULARY EACH (Atorvastatin Calcium [Lipitor] 80 MG) PO SCH (22:00)
[2020-07-29] MEDS: DEXTROSE 5% IN WATER 1,000 ML IV SCH (04:25)
[2020-07-29 04:34] LABS: Blood Urea Nitrogen 32 mg/dL (7-17); Calcium 8.7 mg/dL (8.4-10.2); Hemolysis Index 95
[2020-07-29 04:38] LABS: BUN/Creatinine Ratio 64
[2020-07-29] MEDS: HEPARIN 5,000 UNIT/1 ML VIAL SUB-Q SCH ×2 (10:14→22:56)
[2020-07-29] MEDS: ASPIRIN 81 MG TAB CHEW PO SCH (10:16)
[2020-07-29] MEDS: levETIRAcetam 500 MG in DEXTROSE 5% IN WATER 100 ML IV SCH (10:17)
[2020-07-29] MEDS: SERTRALINE 100 MG TAB PO SCH (10:17)
[2020-07-29] MEDS: BACLOFEN 10 MG TAB PO SCH ×3 (10:18→20:18)
--- NOTE | 2020-07-29 10:26 | Progress Note ---
Assessment and Plan - Patient Problems (1) Hypernatremia Current Visit: Yes Status: Acute Plan to address problem: Hypernatremia probably secondary to decreased free water intake. Need to rule rule out sepsis. Sodium decreasing rapidly. Hold IV fluids and follow-up sodium. Resume if it starts to increase. Follow-up sodium closely and adjust water replacement accordingly (2) Hypokalemia Current Visit: Yes Status: Acute Plan to address problem: Probably secondary to decreased intake of potassium rich foods. Potassium was repleted. Follow-up levels. (3) Hypothermia Current Visit: Yes Status: Acute Plan to address problem: Need to rule out sepsis. (4) Prerenal azotemia Current Visit: Yes Status: Acute Plan to address problem: Probably secondary to volume depletion. Kidney fxn improving. (5) CVA, old, dysphagia Current Visit: Yes Status: Chronic Plan to address problem: Continue antiplatelet agents. (6) Dementia Current Visit: Yes Status: Chronic Plan to address problem: Baseline dementia with worsening mental status. Follow-up closely Subjective Date of service: 07/29/20 Principal diagnosis: Hypernatremia, hypokalemia Interval history: Patient seen lying in bed. She is nonverbal. She is awake and follows my movements and neuro Objective - Exam Narrative Exam: Middle-aged -[place] female lying in in no acute distress HEENT: NCAT, Neck: Supple, no venous distention CVS: S1S2 RRR with no murmur, rub or gallop Chest: Clear to auscultation Abdomen: Protuberant, soft, nontender, no organomegaly, bowel sounds are present Extremities: No edema, muscle wasting Neuro: Awake, alert, non-verbal - Vital Signs Vital signs: Vital Signs - 12hr 07/29/20 07/29/20 01:00 06:16 Temperature 98.0 F Pulse Rate 53 L Respiratory 16 18 Rate Blood Pressure 124/90 O2 Sat by Pulse 99 Oximetry - Lab 07/27/20 17:55 07/29/20 03:34 Most recent lab results Calcium 8.7 mg/dL (8.4-10.2) 07/29/20 03:34 Phosphorus 2.30 mg/dL (2.5-4.5) L 07/29/20 03:34 Magnesium 2.60 mg/dL (1.7-2.3) H 07/29/20 03:34 Medications & Allergies - Medications Allergies/Adverse Reactions: Allergies lisinopril Allergy (Verified 07/27/20 21:47) Unknown Home Medications: Home Medications Medication Instructions Recorded Confirmed Last Taken Type Acetaminophen [Tylenol] 2 tab PO BID 07/27/20 07/27/20 Unknown History Aspirin [Aspirin BABY CHEW TAB] 81 mg PO QDAY 07/27/20 07/27/20 Unknown History Atorvastatin Calcium [Lipitor] 80 mg PO QHS 07/27/20 07/27/20 Unknown History Baclofen 5 mg PO TID 07/27/20 07/27/20 Unknown History Hydralazine HCl 50 mg PO Q8HR 07/27/20 07/27/20 Unknown History Losartan [Cozaar] 100 mg PO QDAY 07/27/20 07/27/20 Unknown History Melatonin [Melatonin 3MG TAB 3 mg PO QDAY 07/27/20 07/27/20 Unknown History RAPDIS] NIFEdipine [Nifedipine ER] 60 mg PO QDAY 07/27/20 07/27/20 Unknown History Sennosides [Senna] 2 tab PO DAILY PRN 07/27/20 07/27/20 Unknown History Sertraline HCl [Zoloft] 2 tab PO QAM 07/27/20 07/27/20 Unknown History carvediloL [Coreg] 25 mg PO BID 07/27/20 07/27/20 Unknown History cefTRIAXone/NS 1 GM/50 ML 1 gm IV Q24HR 07/27/20 07/27/20 Unknown History [Rocephin/Ns 1 gm/50 ml] cloNIDine-TTS PATCH [Catapres-Tts 1 patch TD Q7D 07/27/20 07/27/20 Unknown History 0.3mg Patch] donepeziL [Aricept] 10 mg PO QHS 07/27/20 07/27/20 Unknown History levETIRAcetam [Keppra] 500 mg PO BID 07/27/20 07/27/20 Unknown History polyethylene glycoL 3350 [Miralax 17 gm PO QDAY 07/27/20 07/27/20 Unknown History 3350] Active Medications: Generic Name Dose Route Start Last Admin Trade Name Freq PRN Reason Stop Dose Admin Acetaminophen 650 mg 07/27/20 22:02 Tylenol PO Q4H PRN Fever >101 Aspirin 81 mg 07/28/20 10:00 07/29/20 10:16 Baby Aspirin PO 81 mg QDAY RACHEL Administration Atorvastatin Calcium 80 mg 07/28/20 22:00 07/28/20 21:06 Lipitor PO 80 mg QHS RACHEL Administration Baclofen 5 mg 07/28/20 14:00 07/29/20 10:18 Lioresal PO 5 mg TID RACHEL Administration Donepezil HCl 10 mg 07/28/20 22:00 07/28/20 21:06 Aricept PO 10 mg QHS RACHEL Administration Heparin Sodium (Porcine) 5,000 unit 07/27/20 22:00 07/29/20 10:14 Heparin SUB-Q 5,000 unit Q12HR RACHEL Administration Levetiracetam 500 mg/ Dextrose 105 mls @ 400 mls/hr 07/28/20 10:00 07/29/20 10:17 IV 07/29/20 14:00 400 mls/hr Q12HR RACHEL Administration Levetiracetam 500 mg 07/29/20 22:00 Keppra PO BID RACHEL Ondansetron HCl 4 mg 07/27/20 22:03 Zofran IV Q8H PRN Nausea And Vomiting Sertraline HCl 200 mg 07/28/20 11:00 07/29/20 10:17 Zoloft PO 200 mg QAM RACHEL Administration
[2020-07-29 12:16] LABS: Blood Urea Nitrogen 23 mg/dL (7-17); Calcium 8.4 mg/dL (8.4-10.2); Hemolysis Index 14
[2020-07-29 12:19] LABS: BUN/Creatinine Ratio 58
[2020-07-29] MEDS: K-PHOS NEUTRAL 250 MG TAB PO SCH ×2 (14:55→22:55)
--- NOTE | 2020-07-29 17:25 | Progress Note ---
Assessment and Plan - Patient Problems (1) Hypernatremia Current Visit: Yes Status: Resolved Plan to address problem: Admit sodium 173, 07/28 Na 167 Nephrology consulted in the ED Trend BMP 07/28 sodium 156, 07/29 sodium 149, 07/29 sodium 145 Maintenance fluid stopped on 07/29 (2) Hyperchloremia Current Visit: Yes Status: Acute Plan to address problem: - Admit Chloride 135.1, 07/28 117, 07/29 112 - Trend BMP - MIVF: D5W stopped on 07/29 (3) Hypokalemia Current Visit: Yes Status: Acute Plan to address problem: Admit potassium 3.5repleted 07/28 potassium 2.9, replete with 40 MEQ IV KCl, 07/29 potassium 4.1, 07/29 3.4 (replete and f/u BMP) Trend BMP Repeat as needed (4) Prerenal azotemia Current Visit: Yes Status: Acute Plan to address problem: Admit BUN 54, 07/28 BUN 49, 07/28 39, 07/29 32, 07/30 MIVF, stopped on 07/29 Trend BMP 07/29 noted no urine output recorded, RN conducted a bladder scan which showed no urine in bladder however RN reported patient was incontinent several times overnight 07/28 renal ultrasound shows no acute sonographic abnormality of the kidneys, distended bladder, 2.7 cm uterine fundal fibroid, mildly and thickened endometrium, follow-up recommended with [facility] as this is mildly thickened for a postmenopausal patient (5) Seizures Current Visit: Yes Status: Chronic Plan to address problem: - Restarted home Keppra, changed to IV - Seizure precautions (6) Hypertension Current Visit: Yes Status: Chronic Plan to address problem: - Continue to monitor BP - Restart home medications when needed - BP monitoring per protocol (7) Dementia Current Visit: Yes Status: Chronic Plan to address problem: - Restarted home medication - Supportive care - Redirection and verbal deescalation when needed (8) HLD (hyperlipidemia) Current Visit: Yes Status: Chronic Plan to address problem: - Continue home statin (9) CVA, old, dysphagia Current Visit: Yes Status: Chronic Plan to address problem: - PMH of CVA with RHP and dysphasia - ST consulted - Supportive care - Aspiration and fall precautions - Restarted statin and aspirin, will add antihypertensives as needed (10) DVT prophylaxis Current Visit: Yes Status: Acute Plan to address problem: - Heparin subq - SCDs to BLE while in bed History Interval history: 59 year old female with HTN, dementia, CVA with RHP and dysphagia, nonverbal/bedbound, multiple pressure ulcers, depression, seizures, HLD, GISELE, insomnia and muscle spasm who [facility]remia (Na 173), hypokalemia (3.5), hypothermia and dehydration. Nephrology was consulted for her electrolyte derangements. Today her hypernatremia, hyperchloremia and dehydration has improved. Her hypokalemia improved but p.m. labs reveals hypokalemia. COVID-19 PCR ordered for tomorrow. Case management is working on transferring patient back to [facility]. Speech therapy has downgraded her diet to a pured diet. She did not have any urine output recorded yesterday however the RN reports overnight the patient had significant incontinence. A bladder scan performed today showed 45 mL of urine in her bladder. Patient continued to be incontinent of urine. 07/28:severe hypokalemia (2.9) and her hypernatremia (167) is improving. ST eval was ordered. RN ordered WOCN consult. Hospitalist Physical - Physical exam Narrative exam: General appearance: Present: no acute distress, cachectic - EENT Eyes: Present: PERRL, EOM intact ENT: poor dentition - Neck Neck: Present: normal ROM - Respiratory Respiratory effort: normal Respiratory: bilateral: CTA - Cardiovascular Rhythm: regular Heart Sounds: Present: S1 & S2. Absent: systolic murmur, diastolic murmur - Extremities Extremities: no ischemia, pulses intact, pulses symmetrical, No edema, normal temperature, normal color Peripheral Pulses: within normal limits - Abdominal General gastrointestinal: soft, non-tender, non-distended, normal bowel sounds - Integumentary Integumentary: Present: warm, dry - Psychiatric Psychiatric: other (nonverbal, does not follow commands, grimace to painful stimuli x4 extremites) - Neurologic Neurologic: no CNII-XII intact (left sided gaze preference), focal deficits (left sided gaze preference, RHP), no moves all extremities (RHP) - Constitutional Vitals: Temp Pulse Resp BP Pulse Ox 98.2 F 63 16 137/103 99 07/29/20 15:32 07/29/20 15:32 07/29/20 15:32 07/29/20 15:32 07/29/20 15:32 General appearance: Present: no acute distress, cachectic HEART Score - HEART Score Age: 45-65 Risk factors: No known risk factors Troponin: < normal limit - Critical Actions Critical Actions: 0-3 pts:0.9-1.7%risk of adverse cardiac event.Candidate for discharge Results - Labs CBC & Chem 7: 07/27/20 17:55 07/29/20 11:12 Labs: Laboratory Last Values WBC 7.1 K/mm3 (4.5-11.0) 07/27/20 17:55 RBC 3.95 M/mm3 (3.65-5.03) 07/27/20 17:55 Hgb 11.4 gm/dl (10.1-14.3) 07/27/20 17:55 Hct 38.4 % (30.3-42.9) 07/27/20 17:55 MCV 97 fl (79-97) 07/27/20 17:55 MCH 29 pg (28-32) 07/27/20 17:55 MCHC 30 % (30-34) 07/27/20 17:55 RDW 17.6 % (13.2-15.2) H 07/27/20 17:55 Plt Count 149 K/mm3 (140-440) 07/27/20 17:55 Lymph % (Auto) 22.1 % (13.4-35.0) 07/27/20 17:55 [place] % (Auto) 7.8 % (0.0-7.3) H 07/27/20 17:55 Eos % (Auto) 0.6 % (0.0-4.3) 07/27/20 17:55 Baso % (Auto) 0.5 % (0.0-1.8) 07/27/20 17:55 Lymph # (Auto) 1.6 K/mm3 (1.2-5.4) 07/27/20 17:55 [place] # (Auto) 0.6 K/mm3 (0.0-0.8) 07/27/20 17:55 Eos # (Auto) 0.0 K/mm3 (0.0-0.4) 07/27/20 17:55 Baso # (Auto) 0.0 K/mm3 (0.0-0.1) 07/27/20 17:55 Seg Neutrophils % 69.0 % (40.0-70.0) 07/27/20 17:55 Seg Neutrophils # 4.9 K/mm3 (1.8-7.7) 07/27/20 17:55 PT 16.1 Sec. (12.2-14.9) H 07/27/20 17:55 INR 1.26 (0.87-1.13) H 07/27/20 17:55 Sodium 145 mmol/L (137-145) 07/29/20 11:12 Potassium 3.4 mmol/L (3.6-5.0) L 07/29/20 11:12 Chloride 112.4 mmol/L (98-107) H 07/29/20 11:12 Carbon Dioxide 24 mmol/L (22-30) 07/29/20 11:12 Anion Gap 12 mmol/L 07/29/20 11:12 BUN 23 mg/dL (7-17) H 07/29/20 11:12 Creatinine 0.4 mg/dL (0.6-1.2) L 07/29/20 11:12 Estimated GFR > 60 ml/min 07/29/20 11:12 BUN/Creatinine Ratio 58 % 07/29/20 11:12 Glucose 135 mg/dL (65-100) H 07/29/20 11:12 Lactic Acid 1.40 mmol/L (0.7-2.0) 07/27/20 17:55 Calcium 8.4 mg/dL (8.4-10.2) 07/29/20 11:12 Phosphorus 2.30 mg/dL (2.5-4.5) L 07/29/20 03:34 Magnesium 2.60 mg/dL (1.7-2.3) H 07/29/20 03:34 Total Bilirubin 0.30 mg/dL (0.1-1.2) 07/27/20 17:55 AST 11 units/L (5-40) 07/27/20 17:55 ALT 5 units/L (7-56) L 07/27/20 17:55 Alkaline Phosphatase 60 units/L (35-129) 07/27/20 17:55 Total Creatine Kinase 175 units/L (30-135) H 07/27/20 17:55 Total Protein 7.8 g/dL (6.3-8.2) 07/27/20 17:55 Albumin 3.6 g/dL (3.9-5) L 07/27/20 17:55 Albumin/Globulin Ratio 0.9 % 07/27/20 17:55 TSH 0.701 mlU/mL (0.270-4.200) 07/27/20 17:55 Urine Color Yellow (Yellow) 07/27/20 17:51 Urine Turbidity Clear (Clear) 07/27/20 17:51 Urine pH 5.0 (5.0-7.0) 07/27/20 17:51 Ur Specific [place] 1.031 (1.003-1.030) H 07/27/20 17:51 Urine Protein 30 mg/dl mg/dL (Negative) 07/27/20 17:51 Urine Glucose (UA) Neg mg/dL (Negative) 07/27/20 17:51 Urine Ketones Neg mg/dL (Negative) 07/27/20 17:51 Urine Blood Neg (Negative) 07/27/20 17:51 Urine Nitrite Neg (Negative) 07/27/20 17:51 Urine Bilirubin Neg (Negative) 07/27/20 17:51 Urine Urobilinogen 2.0 mg/dL (<2.0) 07/27/20 17:51 Ur Leukocyte Esterase Neg (Negative) 07/27/20 17:51 Urine WBC (Auto) 3.0 /HPF (0.0-6.0) 07/27/20 17:51 Urine RBC (Auto) 3.0 /HPF (0.0-6.0) 07/27/20 17:51 U Epithel Cells (Auto) < 1.0 /HPF (0-13.0) 07/27/20 17:51 Urine Bacteria (Auto) 1+ /HPF (Negative) 07/27/20 17:51 Ur Renal Epithelial Cell 1 /LPF 07/27/20 17:51 Urine Mucus 2+ /HPF 07/27/20 17:51 Salicylates < 0.3 mg/dL (2.8-20.0) L 07/27/20 17:55 Acetaminophen 5.0 ug/mL (10.0-30.0) L 07/27/20 17:55 Microbiology: Microbiology 07/27/20 17:51 Urine,Catheterized - Straight Catheter Urine Culture - Preliminary 07/27/20 17:55 Peripheral/Venous Blood Culture - Preliminary NO GROWTH AFTER 24 HOURS 07/27/20 17:55 Peripheral/Venous Blood Culture - Preliminary NO GROWTH AFTER 24 HOURS Sullivan/IV: Voiding Method External Female Catheter IV Catheter Type [Left Hand] INT / Saline Lock IV Catheter Type [Left Peripheral IV External Jugular] Active Medications - Current Medications Current Medications: Generic Name Dose Route Start Last Admin Trade Name Freq PRN Reason Stop Dose Admin Acetaminophen 650 mg 07/27/20 22:02 Tylenol PO Q4H PRN Fever >101 Aspirin 81 mg 07/28/20 10:00 07/29/20 10:16 Baby Aspirin PO 81 mg QDAY RACHEL Administration Atorvastatin Calcium 80 mg 07/28/20 22:00 07/28/20 21:06 Lipitor PO 80 mg QHS RACHEL Administration Baclofen 5 mg 07/28/20 14:00 07/29/20 14:54 Lioresal PO 5 mg TID RACHEL Administration Donepezil HCl 10 mg 07/28/20 22:00 07/28/20 21:06 Aricept PO 10 mg QHS RACHEL Administration Heparin Sodium (Porcine) 5,000 unit 07/27/20 22:00 07/29/20 10:14 Heparin SUB-Q 5,000 unit Q12HR RACHEL Administration Levetiracetam 500 mg 07/29/20 22:00 Keppra PO BID RACHEL Ondansetron HCl 4 mg 07/27/20 22:03 Zofran IV Q8H PRN Nausea And Vomiting Sertraline HCl 200 mg 07/28/20 11:00 07/29/20 10:17 Zoloft PO 200 mg QAM RACHEL Administration Sodium Phosphate 250 mg 07/29/20 14:00 07/29/20 14:55 K-Phos Neutral PO 07/30/20 13:59 250 mg QID RACHEL Administration Nutrition/Malnutrition Assess - Dietary Evaluation Nutrition/Malnutrition Findings: Nutrition Notes Start: 07/28/20 11:01 Freq: Status: Active Protocol: Document 07/29/20 12:09 EDUARDO (Rec: 07/29/20 12:19 EDUARDO [id number]) Co-Sign 07/29/20 12:09 LM Nutrition Notes Need for Assessment generated from: adoption social worker,MST Initial or Follow up Reassessment Current Diagnosis Decubitus(Pressure Ulcer), Hypertension,Hyperlipidemia Other Pertinent Diagnosis Dehydration, hypernatremia, hypokalemia, dementia, renal failure, seizure Current Diet Pureed/Low Sodium Labs/Tests Na 149 BUN 32 Cr 0.5 P 2.3 Mg 2.6 Pertinent Medications Heparin Height 5 ft 6 in Weight 48.6 kg [place] Body Weight (kg) 59.09 BMI 17.2 Weight Status Underweight Subjective/Other Information 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 Per RN, pt refusing to eat, waiting for MD to determine plan of care. Burn Absent Trauma Absent Difficulty In Chewing Current % PO Negligible Minimum of two criteria No physical signs of malnutrition #2 Nutrition Diagnosis Increased nutrient needs ( specify in comment below) Comments: protein Etiology wound healing As Evidenced by Signs and Symptoms multiple wounds #1 Nutrition Diagnosis Inadequate oral intake Diagnosis Progress(for reassessment Continues documentation) Is patient on ventilator? No Is Patient Ambulatory and/or Out of Bed No REE-([facility]-confined to bed) 1310.184 Kcal/Kg value to use for calculation 35 Approximate Energy Requirements Using 1701 kcal/Kg Calculation Used for Recommendations Kcal/kg Additional Notes Pro: 39-49 g (0.8-1 g/kg) Fluid: 1 ml/kcal Nutrition Intervention Change Diet Order: Continue pureed diet or initiate EN support if pt continues refusing to eat Goal #1 Meet at least 80% energy and protein needs Anticipated Discharge Needs: Unable to determine at this time Follow-Up By: 08/02/20 Additional Comments F/U for hypernatremia, hypokalemia, intakes, and plan of care
[2020-07-29] MEDS: DONEPEZIL 10 MG TAB PO SCH (22:54)
[2020-07-29] MEDS: levETIRAcetam 500 MG/5 ML ORAL LIQD PO SCH (22:55)
[2020-07-30 06:31] LABS: Blood Urea Nitrogen 16 mg/dL (7-17); Calcium 8.6 mg/dL (8.4-10.2); Hemolysis Index 46
[2020-07-30 06:33] LABS: BUN/Creatinine Ratio 40
[2020-07-30] MEDS ORDERED: SENNOSIDES 8.6 MG TAB PO PRN (07:44)
[2020-07-30] MEDS: DEXTROSE 5% IN WATER 1,000 ML IV SCH (10:17)
[2020-07-30] MEDS: BACLOFEN 10 MG TAB PO SCH ×3 (10:18→20:02)
[2020-07-30] MEDS: levETIRAcetam 500 MG/5 ML ORAL LIQD PO SCH ×2 (10:18→23:23)
[2020-07-30] MEDS: SERTRALINE 100 MG TAB PO SCH (10:18)
[2020-07-30] MEDS: POLYETHYLENE GLYCOL 3350 17 GM POWDER PO SCH (10:18)
[2020-07-30] MEDS: carvediloL 25 MG TAB PO SCH ×2 (10:18→23:23)
[2020-07-30] MEDS: ASPIRIN 81 MG TAB CHEW PO SCH (10:18)
[2020-07-30] MEDS: K-PHOS NEUTRAL 250 MG TAB PO SCH (10:18)
[2020-07-30] MEDS: HEPARIN 5,000 UNIT/1 ML VIAL SUB-Q SCH ×2 (10:25→22:59)
--- NOTE | 2020-07-30 16:00 | Progress Note ---
Assessment and Plan - Patient Problems (1) Hypernatremia Current Visit: Yes Status: Acute Plan to address problem: Admit sodium 173, 07/28 Na 167 Nephrology consulted in the ED Trend BMP 07/28 sodium 156, 07/29 sodium 149, 07/29 sodium 145, 07/30 sodium 147 Maintenance fluid stopped on 07/29 Extremity maintenance fluids restarted due to slight hypernatremia (2) Hyperchloremia Current Visit: Yes Status: Acute Plan to address problem: - Admit Chloride 135.1, 07/28 117, 07/29 112, 07/30 112.3 - Trend BMP - MIVF: D5W stopped on 07/29, restart on 07/30 (3) Hypokalemia Current Visit: Yes Status: Resolved Plan to address problem: Admit potassium 3.5repleted 07/28 potassium 2.9, replete with 40 MEQ IV KCl, 07/29 potassium 4.1, 07/29 3.4 (replete and f/u BMP), 07/30 potassium 4 Trend BMP Repeat as needed (4) Prerenal azotemia Current Visit: Yes Status: Acute Plan to address problem: Admit BUN 54, 07/28 BUN 49, 07/28 39, 07/29 32, 07/30 16 MIVF, stopped on 07/29 Trend BMP 07/29 noted no urine output recorded, RN conducted a bladder scan which showed no urine in bladder however RN reported patient was incontinent several times overnight 07/28 renal ultrasound shows no acute sonographic abnormality of the kidneys, distended bladder, 2.7 cm uterine fundal fibroid, mildly and thickened endometrium, follow-up recommended with [facility] as this is mildly thickened for a postmenopausal patient Patient continues to be incontinent of urine (5) Seizures Current Visit: Yes Status: Chronic Plan to address problem: - Restarted home Keppra, changed to IV - Seizure precautions (6) Hypertension Current Visit: Yes Status: Chronic Plan to address problem: - Continue to monitor BP - Restart home medications when needed - BP monitoring per protocol (7) Dementia Current Visit: Yes Status: Chronic Plan to address problem: - Restarted home medication - Supportive care - Redirection and verbal deescalation when needed (8) HLD (hyperlipidemia) Current Visit: Yes Status: Chronic Plan to address problem: - Continue home statin (9) CVA, old, dysphagia Current Visit: Yes Status: Chronic Plan to address problem: - PMH of CVA with RHP and dysphasia - ST consulted - Supportive care - Aspiration and fall precautions - Restarted statin and aspirin, will add antihypertensives as needed (10) DVT prophylaxis Current Visit: Yes Status: Acute Plan to address problem: - Heparin subq - SCDs to BLE while in bed History Interval history: 59 year old female with HTN, dementia, CVA with RHP and dysphagia, nonverbal/bedbound, multiple pressure ulcers, depression, seizures, HLD, GISELE, insomnia and muscle spasm who presented on 07/27 for her [facility] term for hypernatremia (Na 173), hypokalemia (3.5), hypothermia and dehydration. Nephrology was consulted for her electrolyte derangements. Patient tolerating her diet. Labs today revealed slight hyperchloremia and hypernatremia therefore she was restarted on D5W COVID-19 PCR authorization for return to [facility] which is still pending. 07/28:severe hypokalemia (2.9) and her hypernatremia (167) is improving. ST eval was ordered. RN ordered WOCN consult. 07/29: hypernatremia, hyperchloremia and dehydration has improved. Her hypokalemia improved but p.m. labs reveals hypokalemia. COVID-19 PCR ordered for tomorrow. Case management is working on transferring patient back to [facility]. Speech therapy has downgraded her diet to a pured diet. She did not have any urine output recorded yesterday however the RN reports overnight the patient had significant incontinence. A bladder scan performed today showed 45 mL of urine in her bladder. Patient continued to be incontinent of urine. Hospitalist Physical - Physical exam Narrative exam: General appearance: Present: no acute distress, cachectic - EENT Eyes: Present: PERRL, EOM intact ENT: poor dentition - Neck Neck: Present: normal ROM - Respiratory Respiratory effort: normal Respiratory: bilateral: CTA - Cardiovascular Rhythm: regular Heart Sounds: Present: S1 & S2. Absent: systolic murmur, diastolic murmur - Extremities Extremities: no ischemia, pulses intact, pulses symmetrical, No edema, normal temperature, normal color Peripheral Pulses: within normal limits - Abdominal General gastrointestinal: soft, non-tender, non-distended, normal bowel sounds - Integumentary Integumentary: Present: warm, dry - Psychiatric Psychiatric: other (nonverbal, does not follow commands, grimace to painful stimuli x4 extremites) - Neurologic Neurologic: no CNII-XII intact (left sided gaze preference), focal deficits (left sided gaze preference, RHP), no moves all extremities (RHP) - Constitutional Vitals: Temp Pulse Resp BP Pulse Ox 98.9 F 76 18 131/101 97 07/30/20 12:12 07/30/20 12:12 07/30/20 12:12 07/30/20 12:12 07/30/20 12:12 General appearance: Present: no acute distress, cachectic HEART Score - HEART Score Age: 45-65 Risk factors: No known risk factors Troponin: < normal limit - Critical Actions Critical Actions: 0-3 pts:0.9-1.7%risk of adverse cardiac event.Candidate for discharge Results - Labs CBC & Chem 7: 07/27/20 17:55 07/30/20 05:59 Labs: Laboratory Last Values WBC 7.1 K/mm3 (4.5-11.0) 07/27/20 17:55 RBC 3.95 M/mm3 (3.65-5.03) 07/27/20 17:55 Hgb 11.4 gm/dl (10.1-14.3) 07/27/20 17:55 Hct 38.4 % (30.3-42.9) 07/27/20 17:55 MCV 97 fl (79-97) 07/27/20 17:55 MCH 29 pg (28-32) 07/27/20 17:55 MCHC 30 % (30-34) 07/27/20 17:55 RDW 17.6 % (13.2-15.2) H 07/27/20 17:55 Plt Count 149 K/mm3 (140-440) 07/27/20 17:55 Lymph % (Auto) 22.1 % (13.4-35.0) 07/27/20 17:55 [place] % (Auto) 7.8 % (0.0-7.3) H 07/27/20 17:55 Eos % (Auto) 0.6 % (0.0-4.3) 07/27/20 17:55 Baso % (Auto) 0.5 % (0.0-1.8) 07/27/20 17:55 Lymph # (Auto) 1.6 K/mm3 (1.2-5.4) 07/27/20 17:55 [place] # (Auto) 0.6 K/mm3 (0.0-0.8) 07/27/20 17:55 Eos # (Auto) 0.0 K/mm3 (0.0-0.4) 07/27/20 17:55 Baso # (Auto) 0.0 K/mm3 (0.0-0.1) 07/27/20 17:55 Seg Neutrophils % 69.0 % (40.0-70.0) 07/27/20 17:55 Seg Neutrophils # 4.9 K/mm3 (1.8-7.7) 07/27/20 17:55 PT 16.1 Sec. (12.2-14.9) H 07/27/20 17:55 INR 1.26 (0.87-1.13) H 07/27/20 17:55 Sodium 147 mmol/L (137-145) H 07/30/20 05:59 Potassium 4.0 mmol/L (3.6-5.0) 07/30/20 05:59 Chloride 112.3 mmol/L (98-107) H 07/30/20 05:59 Carbon Dioxide 27 mmol/L (22-30) 07/30/20 05:59 Anion Gap 12 mmol/L 07/30/20 05:59 BUN 16 mg/dL (7-17) 07/30/20 05:59 Creatinine 0.4 mg/dL (0.6-1.2) L 07/30/20 05:59 Estimated GFR > 60 ml/min 07/30/20 05:59 BUN/Creatinine Ratio 40 % 07/30/20 05:59 Glucose 105 mg/dL (65-100) H 07/30/20 05:59 Lactic Acid 1.40 mmol/L (0.7-2.0) 07/27/20 17:55 Calcium 8.6 mg/dL (8.4-10.2) 07/30/20 05:59 Phosphorus 2.90 mg/dL (2.5-4.5) D 07/30/20 05:59 Magnesium 2.60 mg/dL (1.7-2.3) H 07/29/20 03:34 Total Bilirubin 0.30 mg/dL (0.1-1.2) 07/27/20 17:55 AST 11 units/L (5-40) 07/27/20 17:55 ALT 5 units/L (7-56) L 07/27/20 17:55 Alkaline Phosphatase 60 units/L (35-129) 07/27/20 17:55 Total Creatine Kinase 175 units/L (30-135) H 07/27/20 17:55 Total Protein 7.8 g/dL (6.3-8.2) 07/27/20 17:55 Albumin 3.6 g/dL (3.9-5) L 07/27/20 17:55 Albumin/Globulin Ratio 0.9 % 07/27/20 17:55 TSH 0.701 mlU/mL (0.270-4.200) 07/27/20 17:55 Urine Color Yellow (Yellow) 07/27/20 17:51 Urine Turbidity Clear (Clear) 07/27/20 17:51 Urine pH 5.0 (5.0-7.0) 07/27/20 17:51 Ur Specific [place] 1.031 (1.003-1.030) H 07/27/20 17:51 Urine Protein 30 mg/dl mg/dL (Negative) 07/27/20 17:51 Urine Glucose (UA) Neg mg/dL (Negative) 07/27/20 17:51 Urine Ketones Neg mg/dL (Negative) 07/27/20 17:51 Urine Blood Neg (Negative) 07/27/20 17:51 Urine Nitrite Neg (Negative) 07/27/20 17:51 Urine Bilirubin Neg (Negative) 07/27/20 17:51 Urine Urobilinogen 2.0 mg/dL (<2.0) 07/27/20 17:51 Ur Leukocyte Esterase Neg (Negative) 07/27/20 17:51 Urine WBC (Auto) 3.0 /HPF (0.0-6.0) 07/27/20 17:51 Urine RBC (Auto) 3.0 /HPF (0.0-6.0) 07/27/20 17:51 U Epithel Cells (Auto) < 1.0 /HPF (0-13.0) 07/27/20 17:51 Urine Bacteria (Auto) 1+ /HPF (Negative) 07/27/20 17:51 Ur Renal Epithelial Cell 1 /LPF 07/27/20 17:51 Urine Mucus 2+ /HPF 07/27/20 17:51 Salicylates < 0.3 mg/dL (2.8-20.0) L 07/27/20 17:55 Acetaminophen 5.0 ug/mL (10.0-30.0) L 07/27/20 17:55 Coronavirus (PCR) Negative (Negative) 07/30/20 10:06 Microbiology: Microbiology 07/27/20 17:51 Urine,Catheterized - Straight Catheter Urine Culture - Final 07/27/20 17:55 Peripheral/Venous Blood Culture - Preliminary NO GROWTH AFTER 48 HOURS 07/27/20 17:55 Peripheral/Venous Blood Culture - Preliminary NO GROWTH AFTER 48 HOURS Sullivan/IV: Voiding Method External Female Catheter IV Catheter Type [Left Hand] INT / Saline Lock IV Catheter Type [Left Peripheral IV External Jugular] Active Medications - Current Medications Current Medications: Generic Name Dose Route Start Last Admin Trade Name Freq PRN Reason Stop Dose Admin Acetaminophen 650 mg 07/27/20 22:02 Tylenol PO Q4H PRN Fever >101 Aspirin 81 mg 07/28/20 10:00 07/30/20 10:18 Baby Aspirin PO 81 mg QDAY RACHEL Administration Atorvastatin Calcium 80 mg 07/28/20 22:00 07/29/20 22:55 Lipitor PO 80 mg QHS RACHEL Administration Baclofen 5 mg 07/28/20 14:00 07/30/20 15:53 Lioresal PO 5 mg TID RACHEL Administration Carvedilol 25 mg 07/30/20 10:00 07/30/20 10:18 Coreg PO 25 mg BID RACHEL Administration Donepezil HCl 10 mg 07/28/20 22:00 07/29/20 22:54 Aricept PO 10 mg QHS RACHEL Administration Heparin Sodium (Porcine) 5,000 unit 07/27/20 22:00 07/30/20 10:25 Heparin SUB-Q 5,000 unit Q12HR RACHEL Administration Dextrose 1,000 mls @ 75 mls/hr 07/30/20 08:00 07/30/20 10:17 D5w IV 75 mls/hr DIRECT RACHEL Administration Levetiracetam 500 mg 07/29/20 22:00 07/30/20 10:18 Keppra PO 500 mg BID RACHEL Administration Ondansetron HCl 4 mg 07/27/20 22:03 Zofran IV Q8H PRN Nausea And Vomiting Polyethylene Glycol 17 gm 07/30/20 10:00 07/30/20 10:18 Miralax 3350 PO 17 gm QDAY RACHEL Administration Senna 17.2 mg 07/30/20 07:44 Senokot PO DAILY PRN CONSTIPATION Sertraline HCl 200 mg 07/28/20 11:00 07/30/20 10:18 Zoloft PO 200 mg QAM RACHEL Administration Nutrition/Malnutrition Assess - Dietary Evaluation Nutrition/Malnutrition Findings: Nutrition Notes Start: 07/28/20 11:01 Freq: Status: Active Protocol: Document 07/29/20 12:09 EDUARDO (Rec: 07/29/20 12:19 EDUARDO [id number]) Co-Sign 07/29/20 12:09 LM Nutrition Notes Need for Assessment generated from: freight sales broker,MST Initial or Follow up Reassessment Current Diagnosis Decubitus(Pressure Ulcer), Hypertension,Hyperlipidemia Other Pertinent Diagnosis Dehydration, hypernatremia, hypokalemia, dementia, renal failure, seizure Current Diet Pureed/Low Sodium Labs/Tests Na 149 BUN 32 Cr 0.5 P 2.3 Mg 2.6 Pertinent Medications Heparin Height 5 ft 6 in Weight 48.6 kg [place] Body Weight (kg) 59.09 BMI 17.2 Weight Status Underweight Subjective/Other 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 Per RN, pt refusing to eat, waiting for MD to determine plan of care. Burn Absent Trauma Absent Difficulty In Chewing Current % PO Negligible Minimum of two criteria No physical signs of malnutrition #2 Nutrition Diagnosis Increased nutrient needs ( specify in comment below) Comments: protein Etiology wound healing As Evidenced by Signs and Symptoms multiple wounds #1 Nutrition Diagnosis Inadequate oral intake Diagnosis Progress(for reassessment Continues documentation) Is patient on ventilator? No Is Patient Ambulatory and/or Out of Bed No REE-([facility]-confined to bed) 1310.184 Kcal/Kg value to use for calculation 35 Approximate Energy Requirements Using 1701 kcal/Kg Calculation Used for Recommendations Kcal/kg Additional Notes Pro: 39-49 g (0.8-1 g/kg) Fluid: 1 ml/kcal Nutrition Intervention Change Diet Order: Continue pureed diet or initiate EN support if pt continues refusing to eat Goal #1 Meet at least 80% energy and protein needs Anticipated Discharge Needs: Unable to determine at this time Follow-Up By: 08/02/20 Additional Comments F/U for hypernatremia, hypokalemia, intakes, and plan of care
[2020-07-30] MEDS ORDERED: NON-FORMULARY EACH (Nifedipine [Nifedipine Er] 60 MG) PO SCH (16:15)
--- NOTE | 2020-07-30 16:16 | Progress Note ---
Assessment and Plan - Patient Problems (1) Hypernatremia Current Visit: Yes Status: Acute Plan to address problem: Hypernatremia probably secondary to decreased free water intake. Need to rule rule out sepsis. Sodium decreased rapidly rapidly also free water replacement intravenously was stopped yesterday. Restarted today at lower dose. Follow-up sodium closely and adjust water replacement accordingly (2) Essential (primary) hypertension Current Visit: Yes Status: Acute Plan to address problem: Hypertension: Blood pressure medications held on presentation her blood pressure was low normal. Resume antihypertensive medication but will start with only Carvedilol. Follow- up blood pressure (3) Hypokalemia Current Visit: Yes Status: Resolved Plan to address problem: Probably secondary to decreased intake of potassium rich foods. Potassium is replete. Follow-up levels. (4) Prerenal azotemia Current Visit: Yes Status: Acute Plan to address problem: Probably secondary to volume depletion. Kidney fxn improving. (5) CVA, old, dysphagia Current Visit: Yes Status: Chronic Plan to address problem: Continue antiplatelet agents. (6) Dementia Current Visit: Yes Status: Chronic Plan to address problem: Baseline dementia with worsening mental status. Mental status has improved. Follow-up closely Subjective Date of service: 07/30/20 Principal diagnosis: Hypernatremia, hypokalemia Interval history: Patient seen lying in bed. She is saying a few words today. "I feel great" Objective - Exam Narrative Exam: Middle-aged -[place] female lying in in no acute distress HEENT: NCAT, Neck: Supple, no venous distention CVS: S1S2 RRR with no murmur, rub or gallop Chest: Clear to auscultation Abdomen: Protuberant, soft, nontender, no organomegaly, bowel sounds are present Extremities: No edema, muscle wasting Neuro: Awake, alert, verbalizing but disoriented - Vital Signs Vital signs: Vital Signs - 12hr 07/30/20 07/30/20 06:23 12:12 Temperature 97.9 F 98.9 F Pulse Rate 58 L 76 Respiratory 20 18 Rate Blood Pressure 146/100 131/101 O2 Sat by Pulse 99 97 Oximetry - Lab 07/27/20 17:55 07/30/20 05:59 Most recent lab results Calcium 8.6 mg/dL (8.4-10.2) 07/30/20 05:59 Phosphorus 2.90 mg/dL (2.5-4.5) D 07/30/20 05:59 Magnesium 2.60 mg/dL (1.7-2.3) H 07/29/20 03:34 Medications & Allergies - Medications Allergies/Adverse Reactions: Allergies lisinopril Allergy (Verified 07/27/20 21:47) Unknown Home Medications: Home Medications Medication Instructions Recorded Confirmed Last Taken Type Acetaminophen [Tylenol] 2 tab PO BID 07/27/20 07/27/20 Unknown History Aspirin [Aspirin BABY CHEW TAB] 81 mg PO QDAY 07/27/20 07/27/20 Unknown History Atorvastatin Calcium [Lipitor] 80 mg PO QHS 07/27/20 07/27/20 Unknown History Baclofen 5 mg PO TID 07/27/20 07/27/20 Unknown History Hydralazine HCl 50 mg PO Q8HR 07/27/20 07/27/20 Unknown History Losartan [Cozaar] 100 mg PO QDAY 07/27/20 07/27/20 Unknown History Melatonin [Melatonin 3MG TAB 3 mg PO QDAY 07/27/20 07/27/20 Unknown History RAPDIS] NIFEdipine [Nifedipine ER] 60 mg PO QDAY 07/27/20 07/27/20 Unknown History Sennosides [Senna] 2 tab PO DAILY PRN 07/27/20 07/27/20 Unknown History Sertraline HCl [Zoloft] 2 tab PO QAM 07/27/20 07/27/20 Unknown History carvediloL [Coreg] 25 mg PO BID 07/27/20 07/27/20 Unknown History cefTRIAXone/NS 1 GM/50 ML 1 gm IV Q24HR 07/27/20 07/27/20 Unknown History [Rocephin/Ns 1 gm/50 ml] cloNIDine-TTS PATCH [Catapres-Tts 1 patch TD Q7D 07/27/20 07/27/20 Unknown History 0.3mg Patch] donepeziL [Aricept] 10 mg PO QHS 07/27/20 07/27/20 Unknown History levETIRAcetam [Keppra] 500 mg PO BID 07/27/20 07/27/20 Unknown History polyethylene glycoL 3350 [Miralax 17 gm PO QDAY 07/27/20 07/27/20 Unknown History 3350] Active Medications: Generic Name Dose Route Start Last Admin Trade Name Freq PRN Reason Stop Dose Admin Acetaminophen 650 mg 07/27/20 22:02 Tylenol PO Q4H PRN Fever >101 Aspirin 81 mg 07/28/20 10:00 07/30/20 10:18 Baby Aspirin PO 81 mg QDAY RACHEL Administration Atorvastatin Calcium 80 mg 07/28/20 22:00 07/29/20 22:55 Lipitor PO 80 mg QHS RACHEL Administration Baclofen 5 mg 07/28/20 14:00 07/30/20 15:53 Lioresal PO 5 mg TID RACHEL Administration Carvedilol 25 mg 07/30/20 10:00 07/30/20 10:18 Coreg PO 25 mg BID RACHEL Administration Donepezil HCl 10 mg 07/28/20 22:00 07/29/20 22:54 Aricept PO 10 mg QHS RACHEL Administration Heparin Sodium (Porcine) 5,000 unit 07/27/20 22:00 07/30/20 10:25 Heparin SUB-Q 5,000 unit Q12HR RACHEL Administration Dextrose 1,000 mls @ 75 mls/hr 07/30/20 08:00 07/30/20 10:17 D5w IV 75 mls/hr DIRECT RACHEL Administration Levetiracetam 500 mg 07/29/20 22:00 07/30/20 10:18 Keppra PO 500 mg BID RACHEL Administration Nifedipine 60 mg 07/30/20 17:00 Procardia Xl PO QDAY RACHEL Ondansetron HCl 4 mg 07/27/20 22:03 Zofran IV Q8H PRN Nausea And Vomiting Polyethylene Glycol 17 gm 07/30/20 10:00 07/30/20 10:18 Miralax 3350 PO 17 gm QDAY RACHEL Administration Senna 17.2 mg 07/30/20 07:44 Senokot PO DAILY PRN CONSTIPATION Sertraline HCl 200 mg 07/28/20 11:00 07/30/20 10:18 Zoloft PO 200 mg QAM RACHEL Administration
[2020-07-30 16:55] LABS: Blood Urea Nitrogen 14 mg/dL (7-17); Calcium 8.2 mg/dL (8.4-10.2); Hemolysis Index 23
[2020-07-30 17:16] LABS: BUN/Creatinine Ratio 35
[2020-07-30] MEDS: NIFEdipine XL 60 MG TAB PO SCH (17:35)
[2020-07-30] MEDS: DONEPEZIL 10 MG TAB PO SCH (23:23)
[2020-07-31] MEDS: DEXTROSE 5% IN WATER 1,000 ML IV SCH ×2 (01:38→18:16)
[2020-07-31] MEDS: BACLOFEN 10 MG TAB PO SCH ×3 (08:00→20:32)
[2020-07-31] MEDS: SERTRALINE 100 MG TAB PO SCH (10:18)
[2020-07-31] MEDS: ASPIRIN 81 MG TAB CHEW PO SCH (10:18)
[2020-07-31] MEDS: POLYETHYLENE GLYCOL 3350 17 GM POWDER PO SCH (10:18)
[2020-07-31] MEDS: levETIRAcetam 500 MG/5 ML ORAL LIQD PO SCH ×2 (10:19→21:52)
[2020-07-31] MEDS: NIFEdipine XL 60 MG TAB PO SCH (10:19)
[2020-07-31] MEDS: carvediloL 25 MG TAB PO SCH ×2 (10:19→21:52)
--- NOTE | 2020-07-31 10:19 | Progress Note ---
Assessment and Plan - Patient Problems (1) Hypernatremia Current Visit: Yes Status: Acute Plan to address problem: Hypernatremia probably secondary to decreased free water intake. Need to rule rule out sepsis. Sodium decreased rapidly rapidly also free water replacement intravenously was stopped 2 days ago. Restarted today at lower dose yesterday. Sodium is unchanged. We will increase intravenous fluids and follow-up electrolytes and renal function. (2) Essential (primary) hypertension Current Visit: Yes Status: Acute Plan to address problem: Hypertension: Blood pressure medications held on presentation as her blood pressure was low normal. Carvedilol was started but blood pressure was still high. Nifedipine added yesterday. Follow-up blood pressure on adjusted medications (3) Hypokalemia Current Visit: Yes Status: Resolved Plan to address problem: Probably secondary to decreased intake of potassium rich foods. Potassium is low. Will supplement potassium. Follow-up levels. (4) Prerenal azotemia Current Visit: Yes Status: Acute Plan to address problem: Probably secondary to volume depletion. Kidney fxn improving. (5) CVA, old, dysphagia Current Visit: Yes Status: Chronic Plan to address problem: Continue antiplatelet agents. (6) Dementia Current Visit: Yes Status: Chronic Plan to address problem: Baseline dementia (probably Multi-infarct dementia) with worsening mental status. Mental status has improved. Follow-up closely Subjective Date of service: 07/31/20 Principal diagnosis: Hypernatremia, hypokalemia Interval history: Patient seen lying in bed. She is awake and followed my movements. She is however not speaking today Objective - Exam Narrative Exam: Middle-aged -[place]ym[place] female lying in in no acute distress HEENT: NCAT, Neck: Supple, no venous distention CVS: S1S2 RRR with no murmur, rub or gallop Chest: Clear to auscultation Abdomen: Protuberant, soft, nontender, no organomegaly, bowel sounds are present Extremities: No edema, muscle wasting Neuro: Awake, alert, - Vital Signs Vital signs: Vital Signs - 12hr 07/30/20 07/30/20 07/30/20 22:24 23:08 23:11 Temperature Pulse Rate 95 H 60 68 Respiratory Rate Blood Pressure Blood Pressure [Left] O2 Sat by Pulse 98 98 98 Oximetry 07/30/20 07/30/20 07/30/20 23:12 23:15 23:20 Temperature 99 F Pulse Rate 66 63 Respiratory 18 Rate Blood Pressure Blood Pressure 153/96 [Left] O2 Sat by Pulse 99 98 Oximetry 07/30/20 07/30/20 07/31/20 23:23 23:55 05:54 Temperature 98.0 F Pulse Rate 63 57 L Respiratory 18 18 Rate Blood Pressure 153/96 145/96 Blood Pressure [Left] O2 Sat by Pulse 99 Oximetry - Lab 07/27/20 17:55 07/30/20 16:15 Most recent lab results Calcium 8.2 mg/dL (8.4-10.2) L 07/30/20 16:15 Phosphorus 2.90 mg/dL (2.5-4.5) D 07/30/20 05:59 Magnesium 2.60 mg/dL (1.7-2.3) H 07/29/20 03:34 Medications & Allergies - Medications Allergies/Adverse Reactions: Allergies lisinopril Allergy (Verified 07/27/20 21:47) Unknown Home Medications: Home Medications Medication Instructions Recorded Confirmed Last Taken Type Acetaminophen [Tylenol] 2 tab PO BID 07/27/20 07/27/20 Unknown History Aspirin [Aspirin BABY CHEW TAB] 81 mg PO QDAY 07/27/20 07/27/20 Unknown History Atorvastatin Calcium [Lipitor] 80 mg PO QHS 07/27/20 07/27/20 Unknown History Baclofen 5 mg PO TID 07/27/20 07/27/20 Unknown History Hydralazine HCl 50 mg PO Q8HR 07/27/20 07/27/20 Unknown History Losartan [Cozaar] 100 mg PO QDAY 07/27/20 07/27/20 Unknown History Melatonin [Melatonin 3MG TAB 3 mg PO QDAY 07/27/20 07/27/20 Unknown History RAPDIS] NIFEdipine [Nifedipine ER] 60 mg PO QDAY 07/27/20 07/27/20 Unknown History Sennosides [Senna] 2 tab PO DAILY PRN 07/27/20 07/27/20 Unknown History Sertraline HCl [Zoloft] 2 tab PO QAM 07/27/20 07/27/20 Unknown History carvediloL [Coreg] 25 mg PO BID 07/27/20 07/27/20 Unknown History cefTRIAXone/NS 1 GM/50 ML 1 gm IV Q24HR 07/27/20 07/27/20 Unknown History [Rocephin/Ns 1 gm/50 ml] cloNIDine-TTS PATCH [Catapres-Tts 1 patch TD Q7D 07/27/20 07/27/20 Unknown History 0.3mg Patch] donepeziL [Aricept] 10 mg PO QHS 07/27/20 07/27/20 Unknown History levETIRAcetam [Keppra] 500 mg PO BID 07/27/20 07/27/20 Unknown History polyethylene glycoL 3350 [Miralax 17 gm PO QDAY 07/27/20 07/27/20 Unknown History 3350] Active Medications: Generic Name Dose Route Start Last Admin Trade Name Freq PRN Reason Stop Dose Admin Acetaminophen 650 mg 07/27/20 22:02 Tylenol PO Q4H PRN Fever >101 Aspirin 81 mg 07/28/20 10:00 07/30/20 10:18 Baby Aspirin PO 81 mg QDAY RACHEL Administration Atorvastatin Calcium 80 mg 07/28/20 22:00 07/30/20 23:22 Lipitor PO 80 mg QHS RACHEL Administration Baclofen 5 mg 07/28/20 14:00 07/30/20 20:02 Lioresal PO 5 mg TID RACHEL Administration Carvedilol 25 mg 07/30/20 10:00 07/30/20 23:23 Coreg PO 25 mg BID RACHEL Administration Donepezil HCl 10 mg 07/28/20 22:00 07/30/20 23:23 Aricept PO 10 mg QHS RACHEL Administration Heparin Sodium (Porcine) 5,000 unit 07/27/20 22:00 07/30/20 22:59 Heparin SUB-Q 5,000 unit Q12HR RACHEL Administration Dextrose 1,000 mls @ 125 mls/hr 07/30/20 08:00 07/31/20 01:38 D5w IV 75 mls/hr DIRECT RACHEL Administration Potassium Chloride 10 meq in 100 mls @ 100 mls/hr 07/31/20 10:00 Kcl 10meq/100ml IV 07/31/20 13:59 Q1H RACHEL Levetiracetam 500 mg 07/29/20 22:00 07/30/20 23:23 Keppra PO 500 mg BID RACHEL Administration Nifedipine 60 mg 07/30/20 17:00 07/30/20 17:35 Procardia Xl PO 60 mg QDAY RACHEL Administration Ondansetron HCl 4 mg 07/27/20 22:03 Zofran IV Q8H PRN Nausea And Vomiting Polyethylene Glycol 17 gm 07/30/20 10:00 07/30/20 10:18 Miralax 3350 PO 17 gm QDAY RACHEL Administration Senna 17.2 mg 07/30/20 07:44 Senokot PO DAILY PRN CONSTIPATION Sertraline HCl 200 mg 07/28/20 11:00 07/30/20 10:18 Zoloft PO 200 mg QAM RACHEL Administration
[2020-07-31] MEDS: HEPARIN 5,000 UNIT/1 ML VIAL SUB-Q SCH ×2 (10:20→21:53)
[2020-07-31] MEDS: POTASSIUM CHLORIDE 10 MEQ 10 MEQ/100 ML BAG IV SCH ×4 (10:32→13:00)
--- NOTE | 2020-07-31 13:13 | Progress Note ---
Assessment and Plan Assessment and plan: 59 year old female with HTN, dementia, CVA with RHP and dysphagia, nonverbal/bedbound, multiple pressure ulcers, depression, seizures, HLD, GISELE, insomnia and muscle spasm who presented on 07/27 for her m[facility] for hypernatremia (Na 173), hypokalemia (3.5), hypothermia and dehydration. Nephrology was consulted for her electrolyte derangements. Patient tolerating her diet. Labs today revealed slight hyperchloremia and hypernatremia therefore she was restarted on D5W COVID-19 PCR authorization for return to [facility] which is still pending. 07/28:severe hypokalemia (2.9) and her hypernatremia (167) is improving. ST eval was ordered. RN ordered WOCN consult. 07/29: hypernatremia, hyperchloremia and dehydration has improved. Her hypokalemia improved but p.m. labs reveals hypokalemia. COVID-19 PCR ordered for tomorrow. Case management is working on transferring patient back to [facility]. Speech therapy has downgraded her diet to a pured diet. She did not have any urine output recorded yesterday however the RN reports overnight the patient had significant incontinence. A bladder scan performed today showed 45 mL of urine in her bladder. Patient continued to be incontinent of urine. 07/30. Sodium level improved 07/31. Awaiting AM labs. Encourage water intake - Patient Problems (1) Hypernatremia Current Visit: Yes Status: Acute Plan to address problem: Admit sodium 173, 07/28 Na 167 Nephrology consulted in the ED Trend BMP 07/28 sodium 156, 07/29 sodium 149, 07/29 sodium 145, 07/30 sodium 147 Extremity maintenance fluids restarted due to slight hypernatremia -Continue D5W. (2) Hyperchloremia Current Visit: Yes Status: Acute Plan to address problem: - Admit Chloride 135.1, 07/28 117, 07/29 112, 07/30 112.3 - Trend BMP - MIVF: D5W stopped on 07/29, restart on 07/30 (3) Hypokalemia Current Visit: Yes Status: Resolved Plan to address problem: Admit potassium 3.5repleted 07/28 potassium 2.9, replete with 40 MEQ IV KCl, 07/29 potassium 4.1, 07/29 3.4 (replete and f/u BMP), 07/30 potassium 4 Trend BMP Repeat as needed (4) Prerenal azotemia Current Visit: Yes Status: Acute Plan to address problem: Admit BUN 54, 07/28 BUN 49, 07/28 39, 07/29 32, 07/30 16 MIVF, stopped on 07/29 Trend BMP 07/29 noted no urine output recorded, RN conducted a bladder scan which showed no urine in bladder however RN reported patient was incontinent several times overnight 07/28 renal ultrasound shows no acute sonographic abnormality of the kidneys, distended bladder, 2.7 cm uterine fundal fibroid, mildly and thickened endometrium, follow-up recommended with [employer] as this is mildly thickened for a postmenopausal patient Patient continues to be incontinent of urine (5) Seizures Current Visit: Yes Status: Chronic Plan to address problem: - Restarted home Keppra, changed to IV - Seizure precautions (6) Hypertension Current Visit: Yes Status: Chronic Plan to address problem: - Continue to monitor BP - Restart home medications when needed - BP monitoring per protocol (7) Dementia Current Visit: Yes Status: Chronic Plan to address problem: - Restarted home medication - Supportive care - Redirection and verbal deescalation when needed (8) HLD (hyperlipidemia) Current Visit: Yes Status: Chronic Plan to address problem: - Continue home statin (9) CVA, old, dysphagia Current Visit: Yes Status: Chronic Plan to address problem: - PMH of CVA with RHP and dysphasia - ST consulted - Supportive care - Aspiration and fall precautions - Restarted statin and aspirin, will add antihypertensives as needed (10) DVT prophylaxis Current Visit: Yes Status: Acute Plan to address problem: - Heparin subq - SCDs to BLE while in bed History Interval history: See assessment and plan Hospitalist Physical - Constitutional Vitals: Temp Pulse Resp BP Pulse Ox 98.5 F 68 18 133/88 92 07/31/20 11:25 07/31/20 11:25 07/31/20 11:25 07/31/20 11:25 07/31/20 11:25 General appearance: Present: no acute distress, cachectic - EENT Eyes: Present: PERRL - Respiratory Respiratory: bilateral: CTA - Cardiovascular Heart Sounds: Present: S1 & S2 - Extremities Extremities: no ischemia, No edema - Abdominal General gastrointestinal: soft, non-tender, non-distended - Psychiatric Psychiatric: other (Nonverbal) - Neurologic Neurologic: other (Awake) - Allied Health Allied health notes reviewed: nursing, social work, case management HEART Score - HEART Score Age: 45-65 Risk factors: No known risk factors Troponin: < normal limit - Critical Actions Critical Actions: 0-3 pts:0.9-1.7%risk of adverse cardiac event.Candidate for discharge Results - Labs CBC & Chem 7: 07/27/20 17:55 07/30/20 16:15 Labs: Laboratory Last Values WBC 7.1 K/mm3 (4.5-11.0) 07/27/20 17:55 RBC 3.95 M/mm3 (3.65-5.03) 07/27/20 17:55 Hgb 11.4 gm/dl (10.1-14.3) 07/27/20 17:55 Hct 38.4 % (30.3-42.9) 07/27/20 17:55 MCV 97 fl (79-97) 07/27/20 17:55 MCH 29 pg (28-32) 07/27/20 17:55 MCHC 30 % (30-34) 07/27/20 17:55 RDW 17.6 % (13.2-15.2) H 07/27/20 17:55 Plt Count 149 K/mm3 (140-440) 07/27/20 17:55 Lymph % (Auto) 22.1 % (13.4-35.0) 07/27/20 17:55 Tate % (Auto) 7.8 % (0.0-7.3) H 07/27/20 17:55 Eos % (Auto) 0.6 % (0.0-4.3) 07/27/20 17:55 Baso % (Auto) 0.5 % (0.0-1.8) 07/27/20 17:55 Lymph # (Auto) 1.6 K/mm3 (1.2-5.4) 07/27/20 17:55 Tate # (Auto) 0.6 K/mm3 (0.0-0.8) 07/27/20 17:55 Eos # (Auto) 0.0 K/mm3 (0.0-0.4) 07/27/20 17:55 Baso # (Auto) 0.0 K/mm3 (0.0-0.1) 07/27/20 17:55 Seg Neutrophils % 69.0 % (40.0-70.0) 07/27/20 17:55 Seg Neutrophils # 4.9 K/mm3 (1.8-7.7) 07/27/20 17:55 PT 16.1 Sec. (12.2-14.9) H 07/27/20 17:55 INR 1.26 (0.87-1.13) H 07/27/20 17:55 Sodium 147 mmol/L (137-145) H 07/30/20 16:15 Potassium 3.4 mmol/L (3.6-5.0) L 07/30/20 16:15 Chloride 112.2 mmol/L (98-107) H 07/30/20 16:15 Carbon Dioxide 25 mmol/L (22-30) 07/30/20 16:15 Anion Gap 13 mmol/L 07/30/20 16:15 BUN 14 mg/dL (7-17) 07/30/20 16:15 Creatinine 0.4 mg/dL (0.6-1.2) L 07/30/20 16:15 Estimated GFR > 60 ml/min 07/30/20 16:15 BUN/Creatinine Ratio 35 % 07/30/20 16:15 Glucose 113 mg/dL (65-100) H 07/30/20 16:15 Lactic Acid 1.40 mmol/L (0.7-2.0) 07/27/20 17:55 Calcium 8.2 mg/dL (8.4-10.2) L 07/30/20 16:15 Phosphorus 2.90 mg/dL (2.5-4.5) D 07/30/20 05:59 Magnesium 2.60 mg/dL (1.7-2.3) H 07/29/20 03:34 Total Bilirubin 0.30 mg/dL (0.1-1.2) 07/27/20 17:55 AST 11 units/L (5-40) 07/27/20 17:55 ALT 5 units/L (7-56) L 07/27/20 17:55 Alkaline Phosphatase 60 units/L (35-129) 07/27/20 17:55 Total Creatine Kinase 175 units/L (30-135) H 07/27/20 17:55 Total Protein 7.8 g/dL (6.3-8.2) 07/27/20 17:55 Albumin 3.6 g/dL (3.9-5) L 07/27/20 17:55 Albumin/Globulin Ratio 0.9 % 07/27/20 17:55 TSH 0.701 mlU/mL (0.270-4.200) 07/27/20 17:55 Urine Color Yellow (Yellow) 07/27/20 17:51 Urine Turbidity Clear (Clear) 07/27/20 17:51 Urine pH 5.0 (5.0-7.0) 07/27/20 17:51 Ur Specific [place] 1.031 (1.003-1.030) H 07/27/20 17:51 Urine Protein 30 mg/dl mg/dL (Negative) 07/27/20 17:51 Urine Glucose (UA) Neg mg/dL (Negative) 07/27/20 17:51 Urine Ketones Neg mg/dL (Negative) 07/27/20 17:51 Urine Blood Neg (Negative) 07/27/20 17:51 Urine Nitrite Neg (Negative) 07/27/20 17:51 Urine Bilirubin Neg (Negative) 07/27/20 17:51 Urine Urobilinogen 2.0 mg/dL (<2.0) 07/27/20 17:51 Ur Leukocyte Esterase Neg (Negative) 07/27/20 17:51 Urine WBC (Auto) 3.0 /HPF (0.0-6.0) 07/27/20 17:51 Urine RBC (Auto) 3.0 /HPF (0.0-6.0) 07/27/20 17:51 U Epithel Cells (Auto) < 1.0 /HPF (0-13.0) 07/27/20 17:51 Urine Bacteria (Auto) 1+ /HPF (Negative) 07/27/20 17:51 Ur Renal Epithelial Cell 1 /LPF 07/27/20 17:51 Urine Mucus 2+ /HPF 07/27/20 17:51 Salicylates < 0.3 mg/dL (2.8-20.0) L 07/27/20 17:55 Acetaminophen 5.0 ug/mL (10.0-30.0) L 07/27/20 17:55 Coronavirus (PCR) Negative (Negative) 07/30/20 10:06 Microbiology: Microbiology 07/27/20 17:55 Peripheral/Venous Blood Culture - Preliminary NO GROWTH AFTER 72 HOURS 07/27/20 17:55 Peripheral/Venous Blood Culture - Preliminary NO GROWTH AFTER 72 HOURS 07/27/20 17:51 Urine,Catheterized - Straight Catheter Urine Culture - Final Sullivan/IV: Voiding Method Incontinent IV Catheter Type [Left Hand] INT / Saline Lock IV Catheter Type [Left Peripheral IV External Jugular] Active Medications - Current Medications Current Medications: Generic Name Dose Route Start Last Admin Trade Name Freq PRN Reason Stop Dose Admin Acetaminophen 650 mg 07/27/20 22:02 Tylenol PO Q4H PRN Fever >101 Aspirin 81 mg 07/28/20 10:00 07/31/20 10:18 Baby Aspirin PO 81 mg QDAY RACHEL Administration Atorvastatin Calcium 80 mg 07/28/20 22:00 07/30/20 23:22 Lipitor PO 80 mg QHS RACHEL Administration Baclofen 5 mg 07/28/20 14:00 07/31/20 13:01 Lioresal PO 5 mg TID RACHEL Administration Carvedilol 25 mg 07/30/20 10:00 07/31/20 10:19 Coreg PO 25 mg BID RACHEL Administration Donepezil HCl 10 mg 07/28/20 22:00 07/30/20 23:23 Aricept PO 10 mg QHS RACHEL Administration Heparin Sodium (Porcine) 5,000 unit 07/27/20 22:00 07/31/20 10:20 Heparin SUB-Q 5,000 unit Q12HR RACHEL Administration Dextrose 1,000 mls @ 125 mls/hr 07/30/20 08:00 07/31/20 01:38 D5w IV 75 mls/hr DIRECT RACHEL Administration Potassium Chloride 10 meq in 100 mls @ 100 mls/hr 07/31/20 10:00 07/31/20 12:46 Kcl 10meq/100ml IV 07/31/20 13:59 100 mls/hr Q1H RACHEL Administration Levetiracetam 500 mg 07/29/20 22:00 07/31/20 10:19 Keppra PO 500 mg BID RACHEL Administration Nifedipine 60 mg 07/30/20 17:00 07/31/20 10:19 Procardia Xl PO 60 mg QDAY RACHEL Administration Ondansetron HCl 4 mg 07/27/20 22:03 Zofran IV Q8H PRN Nausea And Vomiting Polyethylene Glycol 17 gm 07/30/20 10:00 07/31/20 10:18 Miralax 3350 PO 17 gm QDAY RACHEL Administration Senna 17.2 mg 07/30/20 07:44 Senokot PO DAILY PRN CONSTIPATION Sertraline HCl 200 mg 07/28/20 11:00 07/31/20 10:18 Zoloft PO 200 mg QAM RACHEL Administration Nutrition/Malnutrition Assess - Dietary Evaluation Nutrition/Malnutrition Findings: Nutrition Notes Start: 07/28/20 11:01 Freq: Status: Active Protocol: Document 07/29/20 12:09 EDUARDO (Rec: 07/29/20 12:19 EDUARDO [id number]) Co-Sign 07/29/20 12:09 LM Nutrition Notes Need for 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 Per RN, pt refusing to eat, waiting for MD to determine plan of care. Burn Absent Trauma Absent Difficulty In Chewing Current % PO Negligible Minimum of two criteria No physical signs of malnutrition #2 Nutrition Diagnosis Increased nutrient needs ( specify in comment below) Comments: protein Etiology wound healing As Evidenced by Signs and Symptoms multiple wounds #1 Nutrition Diagnosis Inadequate oral intake Diagnosis Progress(for reassessment Continues documentation) Is patient on ventilator? No Is Patient Ambulatory and/or Out of Bed No REE-([facility]-confined to bed) 1310.184 Kcal/Kg value to use for calculation 35 Approximate Energy Requirements Using 1701 kcal/Kg Calculation Used for Recommendations Kcal/kg Additional Notes Pro: 39-49 g (0.8-1 g/kg) Fluid: 1 ml/kcal Nutrition Intervention Change Diet Order: Continue pureed diet or initiate EN support if pt continues refusing to eat Goal #1 Meet at least 80% energy and protein needs Anticipated Discharge Needs: Unable to determine at this time Follow-Up By: 08/02/20 Additional Comments F/U for hypernatremia, hypokalemia, intakes, and plan of care
[2020-07-31 14:17] LABS: BUN/Creatinine Ratio 23; Blood Urea Nitrogen 7 mg/dL (7-17); Calcium 8.6 mg/dL (8.4-10.2); Hemolysis Index 2
[2020-07-31] MEDS: DONEPEZIL 10 MG TAB PO SCH (21:52)
[2020-08-01] MEDS: DEXTROSE 5% IN WATER 1,000 ML IV SCH ×2 (03:12→12:11)
[2020-08-01] MEDS: BACLOFEN 10 MG TAB PO SCH ×2 (08:00→13:57)
[2020-08-01 09:11] LABS: BUN/Creatinine Ratio 13; Blood Urea Nitrogen 5 mg/dL (7-17); Calcium 8.6 mg/dL (8.4-10.2); Hemolysis Index 1
[2020-08-01] MEDS: SERTRALINE 100 MG TAB PO SCH (09:34)
[2020-08-01] MEDS: POLYETHYLENE GLYCOL 3350 17 GM POWDER PO SCH (09:34)
[2020-08-01] MEDS: NIFEdipine XL 60 MG TAB PO SCH (09:34)
[2020-08-01] MEDS: ASPIRIN 81 MG TAB CHEW PO SCH (09:34)
[2020-08-01] MEDS: carvediloL 25 MG TAB PO SCH (09:35)
[2020-08-01] MEDS: levETIRAcetam 500 MG/5 ML ORAL LIQD PO SCH (09:35)
[2020-08-01] MEDS: HEPARIN 5,000 UNIT/1 ML VIAL SUB-Q SCH (09:36)
--- NOTE | 2020-08-01 09:51 | Discharge Summary ---
Providers - Providers Date of Admission: 07/29/20 08:40 Date of discharge: 08/01/20 Attending physician: AVILA ALVAREZ 07/27/20 18:57 Consult to Physician [CONS] Urgent Comment: Dr. Richey spoke with Dr. Jackson @ [phone] Consulting Provider: PHUONG JACKSON Physician Instructions: Reason For Exam: hypernatremia 07/28/20 08:12 Consult to Wound/ET Nurse [CONS] Routine Reason For Exam: wound eval 07/28/20 09:18 Speech Therapy Evaluation and Treat [CONS] Routine Reason For Exam: unable to swallow 07/30/20 08:31 Physical Therapy Evaluation and Treat [CONS] Urgent Comment: Reason For Exam: For placement service 07/30/20 08:34 Occupational Therapy Evaluate and Treat [CONS] Urgent Comment: Reason For Exam: For placement Primary care physician: MACHINE SCALLOP CUTTER Hospitalization Condition: Serious Hospital course: 59 year old female with HTN, dementia, CVA with RHP and dysphagia, nonverbal/bedbound, multiple pressure ulcers, depression, seizures, HLD, GISELE, insomnia and muscle spasm who presented on 07/27 for her snf for hypernatremia (Na 173), hypokalemia (3.5), hypothermia and dehydration. Nephrology was consulted for her electrolyte derangements. Patient tolerating her diet. Labs today revealed slight hyperchloremia and hypernatremia therefore she was restarted on D5W COVID-19 PCR authorization for return to [facility] which is still pending. 07/28:severe hypokalemia (2.9) and her hypernatremia (167) is improving. ST eval was ordered. RN ordered WOCN consult. 07/29: hypernatremia, hyperchloremia and dehydration has improved. Her hypokalemia improved but p.m. labs reveals hypokalemia. COVID-19 PCR ordered for tomorrow. Case management is working on transferring patient back to [facility]. Speech therapy has downgraded her diet to a pured diet. She did not have any urine output recorded yesterday however the RN reports overnight the patient had significant incontinence. A bladder scan performed today showed 45 mL of urine in her bladder. Patient continued to be incontinent of urine. 07/30. Sodium level improved 07/31. Awaiting AM labs. Encourage water intake 08/01. Patient sodium is 141 this morning. Patient will need to be given water liberally [at least 1800 cc/day] to prevent recurrent hypernatremia. She is currently stable to be discharged back to facility. Disposition: [id number]/[place]-03 SNF [facility] CERT - Discharge Diagnoses (1) Hypernatremia Status: Acute (2) Acute metabolic encephalopathy Status: Acute Core Measure Documentation - Palliative Care Palliative Care/ Comfort Measures: Not Applicable - Core Measures Any of the following diagnoses?: none Exam - Physical Exam Narrative exam: VITAL SIGNS: Reviewed. GENERAL: Awake but nonverbal HEAD: No signs of head trauma. EYES: Pupils are equal. Extraocular motions intact. EARS: Not able to evaluate due to speech difficulty MOUTH: Oropharynx is normal. NECK: No adenopathy, no JVD. CHEST: Chest with diminished breath sounds bilaterally. No wheezes, rales, or rhonchi. CARDIAC: Regular rate and rhythm. S1 and S2, without murmurs, gallops, or rubs. VASCULAR: No Edema. Peripheral pulses normal and equal in all extremities. ABDOMEN: Soft, non tender and non distended. No rebound or guarding, and no masses palpated. Bowel Sounds normal. MUSCULOSKELETAL: Good range of motion of all major joints. Extremities without clubbing, cyanosis or edema. NEUROLOGIC EXAM: Nonverbal SKIN: No obvious lesions - Constitutional Vitals: Temp Pulse Resp BP Pulse Ox 98.9 F 52 L 18 146/94 100 08/01/20 05:44 08/01/20 05:44 08/01/20 05:44 08/01/20 05:44 08/01/20 05:44 Plan Diet: low salt Additional Instructions: Patient needs liberal water intake with assistance to prevent recurrent hypernatremia. She should drink at least 1800 cc/day to prevent recurrent readmission. Continue home medications as prescribed. Follow up with: PRIMARY CARE, [Primary Care Provider] - 3-5 Days Prescriptions: Losartan [Cozaar] 50 mg PO QDAY #30 tablet
--- NOTE | 2020-08-01 14:48 | Progress Note ---
Assessment and Plan - Patient Problems (1) Hypernatremia Current Visit: Yes Status: Acute Plan to address problem: Hypernatremia probably secondary to decreased free water intake. Need to rule rule out sepsis. Sodium decreased rapidly rapidly also free water replacement intravenously was stopped 2 days ago. Restarted today at lower dose yesterday. Sodium has improved to normal. I agree with discharge plan. Ensure adequate oral hydration as an outpatient follow-up sodium next week (2) Essential (primary) hypertension Current Visit: Yes Status: Acute Plan to address problem: Hypertension: Blood pressure medications held on presentation as her blood pressure was low normal. Carvedilol was started but blood pressure was still high. Nifedipine added and blood pressure has improved. Follow-up blood pressure on current medications as an outpatient (3) Hypokalemia Current Visit: Yes Status: Resolved Plan to address problem: Probably secondary to decreased intake of potassium rich foods. Potassium is l low normal. Supplement potassium enterally and follow-up potassium as an outpatient. (4) Prerenal azotemia Current Visit: Yes Status: Acute Plan to address problem: Probably secondary to volume depletion. Kidney fxn improving. (5) CVA, old, dysphagia Current Visit: Yes Status: Chronic Plan to address problem: Continue antiplatelet agents. (6) Dementia Current Visit: Yes Status: Chronic Plan to address problem: Baseline dementia (probably Multi-infarct dementia) with worsening mental status. Mental status has improved. Follow-up closely Subjective Date of service: 08/01/20 Principal diagnosis: Hypernatremia, hypokalemia Interval history: Patient seen lying in bed. She is awake and followed my movements. She is however not speaking Objective - Exam Narrative Exam: Middle-aged -[place] female lying in in no acute distress HEENT: NCAT, Neck: Supple, no venous distention CVS: S1S2 RRR with no murmur, rub or gallop Chest: Clear to auscultation Abdomen: Protuberant, soft, nontender, no organomegaly, bowel sounds are present Extremities: No edema, muscle wasting Neuro: Awake, alert, - Vital Signs Vital signs: Vital Signs - 12hr 08/01/20 08/01/20 05:44 11:07 Temperature 98.9 F 98.2 F Pulse Rate 52 L 65 Respiratory 18 20 Rate Blood Pressure 146/94 99/70 O2 Sat by Pulse 100 99 Oximetry - Lab 07/27/20 17:55 08/01/20 08:01 Most recent lab results Calcium 8.6 mg/dL (8.4-10.2) 08/01/20 08:01 Phosphorus 2.90 mg/dL (2.5-4.5) D 07/30/20 05:59 Magnesium 2.60 mg/dL (1.7-2.3) H 07/29/20 03:34 Medications & Allergies - Medications Allergies/Adverse Reactions: Allergies lisinopril Allergy (Verified 07/27/20 21:47) Unknown Home Medications: Home Medications Medication Instructions Recorded Confirmed Last Taken Type Acetaminophen [Tylenol] 2 tab PO BID 07/27/20 07/27/20 Unknown History Aspirin [Aspirin BABY CHEW TAB] 81 mg PO QDAY 07/27/20 07/27/20 Unknown History Atorvastatin Calcium [Lipitor] 80 mg PO QHS 07/27/20 07/27/20 Unknown History Baclofen 5 mg PO TID 07/27/20 07/27/20 Unknown History Hydralazine HCl 50 mg PO Q8HR 07/27/20 07/27/20 Unknown History Melatonin [Melatonin 3MG TAB 3 mg PO QDAY 07/27/20 07/27/20 Unknown History RAPDIS] NIFEdipine [Nifedipine ER] 60 mg PO QDAY 07/27/20 07/27/20 Unknown History Sennosides [Senna] 2 tab PO DAILY PRN 07/27/20 07/27/20 Unknown History Sertraline HCl [Zoloft] 2 tab PO QAM 07/27/20 07/27/20 Unknown History carvediloL [Coreg] 25 mg PO BID 07/27/20 07/27/20 Unknown History cloNIDine-TTS PATCH [Catapres-Tts 1 patch TD Q7D 07/27/20 07/27/20 Unknown History 0.3mg Patch] donepeziL [Aricept] 10 mg PO QHS 07/27/20 07/27/20 Unknown History levETIRAcetam [Keppra] 500 mg PO BID 07/27/20 07/27/20 Unknown History polyethylene glycoL 3350 [Miralax 17 gm PO QDAY 07/27/20 07/27/20 Unknown History 3350] Losartan [Cozaar] 50 mg PO QDAY #30 tablet 08/01/20 Unknown Rx Active Medications: Generic Name Dose Route Start Last Admin Trade Name Freq PRN Reason Stop Dose Admin Acetaminophen 650 mg 07/27/20 22:02 Tylenol PO Q4H PRN Fever >101 Aspirin 81 mg 07/28/20 10:00 08/01/20 09:34 Baby Aspirin PO 81 mg QDAY RACHEL Administration Atorvastatin Calcium 80 mg 07/28/20 22:00 07/31/20 21:52 Lipitor PO 80 mg QHS RACHEL Administration Baclofen 5 mg 07/28/20 14:00 08/01/20 13:57 Lioresal PO 5 mg TID RACHEL Administration Carvedilol 25 mg 07/30/20 10:00 08/01/20 09:35 Coreg PO 25 mg BID RACHEL Administration Donepezil HCl 10 mg 07/28/20 22:00 07/31/20 21:52 Aricept PO 10 mg QHS RACHEL Administration Heparin Sodium (Porcine) 5,000 unit 07/27/20 22:00 08/01/20 09:36 Heparin SUB-Q 5,000 unit Q12HR RACHEL Administration Dextrose 1,000 mls @ 125 mls/hr 07/30/20 08:00 08/01/20 12:11 D5w IV 75 mls/hr DIRECT RACHEL Administration Levetiracetam 500 mg 07/29/20 22:00 08/01/20 09:35 Keppra PO 500 mg BID RACHEL Administration Nifedipine 60 mg 07/30/20 17:00 08/01/20 09:34 Procardia Xl PO 60 mg QDAY RACHEL Administration Ondansetron HCl 4 mg 07/27/20 22:03 Zofran IV Q8H PRN Nausea And Vomiting Polyethylene Glycol 17 gm 07/30/20 10:00 08/01/20 09:34 Miralax 3350 PO 17 gm QDAY RACHEL Administration Senna 17.2 mg 07/30/20 07:44 Senokot PO DAILY PRN CONSTIPATION Sertraline HCl 200 mg 07/28/20 11:00 08/01/20 09:34 Zoloft PO 200 mg QAM RACHEL Administration
[2020-08-01 18:35] VITALS: BP 103/70
== END 2020-08-01 17:40 | DRG 640 ==
LOC: ED 16:09 → 3A 21:30 → OBSVTOIN 07-29 08:40
PROVIDERS: ADMIT Internal Medicine; ATTEND Internal Medicine
DX: E87.0 Hyperosmolality and hypernatremia (principal); G93.41 Metabolic encephalopathy; G40.89 Other seizures; E86.0 Dehydration; E87.6 Hypokalemia; R79.89 Other specified abnormal findings of blood chemistry; Z20.828 Contact with and (suspected) exposure to other viral communicable diseases; I10 Essential (primary) hypertension; F03.90 Unspecified dementia, unspecified severity, without behavioral disturbance, psychotic disturbance, mood disturbance, and anxiety; F32.9 Major depressive disorder, single episode, unspecified; F41.1 Generalized anxiety disorder; E78.5 Hyperlipidemia, unspecified; G47.00 Insomnia, unspecified; E87.8 Other disorders of electrolyte and fluid balance, not elsewhere classified; T68.XXXA Hypothermia, initial encounter; Z88.8 Allergy status to other drugs, medicaments and biological substances; Z79.899 Other long term (current) drug therapy; X31.XXXA Exposure to excessive natural cold, initial encounter; Z74.01 Bed confinement status; Y93.89 Activity, other specified; Z86.73 Personal history of transient ischemic attack (TIA), and cerebral infarction without residual deficits; Y92.89 Other specified places as the place of occurrence of the external cause; Y99.8 Other external cause status
CPT/HCPCS: 36415; 71045; 76770; 80048; 80053; 80320; 81001; 82140; 82550; 83735; 84100; 84443; 85025; 85610; 87040; 87086; 93005; G0378; A9270-GY; G0480; J1644; J1953; J3480; J7070; U0003

== ENCOUNTER 2020-08-16 13:48 | Inpatient (IN) | payer MEDICARE ==
[2020-08-16] MEDS ORDERED: SODIUM CHLORIDE 0.9% 1000 ML 1,000 ML IV ONE (16:34)
--- NOTE | 2020-08-16 16:36 | Emergency Department Report ---
ED General Adult HPI - General Chief complaint: Weakness Stated complaint: FAILURE TO THRIVE Time Seen by Provider: 08/16/20 16:21 Source: EMS Mode of arrival: Ambulatory Limitations: No Limitations - History of Present Illness Initial comments: Patient is 59 years old female, care home patient with history of CVA, hypertension, seizure and depression. Patient brought to the emergency room via EMS from her current care home for evaluation of failure to thrive. [facility] staff informed the EMS that patient refused to eat or drink for the last 3 days. Patient is not communicating so most of the history is from patient medical record and from EMS report. -: days(s) (2) Severity scale (0 -10): 2 - Related Data Home Medications Medication Instructions Recorded Confirmed Last Taken Acetaminophen [Tylenol] 2 tab PO BID 07/27/20 07/27/20 Unknown Aspirin [Aspirin BABY CHEW TAB] 81 mg PO QDAY 07/27/20 07/27/20 Unknown Atorvastatin Calcium [Lipitor] 80 mg PO QHS 07/27/20 07/27/20 Unknown Baclofen 5 mg PO TID 07/27/20 07/27/20 Unknown Hydralazine HCl 50 mg PO Q8HR 07/27/20 07/27/20 Unknown Melatonin [Melatonin 3MG TAB 3 mg PO QDAY 07/27/20 07/27/20 Unknown RAPDIS] NIFEdipine [Nifedipine ER] 60 mg PO QDAY 07/27/20 07/27/20 Unknown Sennosides [Senna] 2 tab PO DAILY PRN 07/27/20 07/27/20 Unknown Sertraline HCl [Zoloft] 2 tab PO QAM 07/27/20 07/27/20 Unknown carvediloL [Coreg] 25 mg PO BID 07/27/20 07/27/20 Unknown cloNIDine-TTS PATCH [Catapres-Tts 1 patch TD Q7D 07/27/20 07/27/20 Unknown 0.3mg Patch] donepeziL [Aricept] 10 mg PO QHS 07/27/20 07/27/20 Unknown levETIRAcetam [Keppra] 500 mg PO BID 07/27/20 07/27/20 Unknown polyethylene glycoL 3350 [Miralax 17 gm PO QDAY 07/27/20 07/27/20 Unknown 3350] Previous Rx's Medication Instructions Recorded Last Taken Type Losartan [Cozaar] 50 mg PO QDAY #30 tablet 08/01/20 Unknown Rx Allergies Allergy/AdvReac Type Severity Reaction Status Date / Time lisinopril Allergy Unknown Verified 07/27/20 21:47 ED Review of Systems ROS: Stated complaint: FAILURE TO THRIVE Other details as noted in HPI Comment: Unobtainable due to pts medical conditions ED Past Medical Hx - Past Medical History Previous Medical History?: Yes Hx Hypertension: Yes Hx CVA: Yes Hx Renal Disease: Yes Hx Seizures: Yes Hx Psychiatric Treatment: Yes (depression anxiety) Hx Dementia: Yes Additional medical history: muscle spasms, anemia, Hemiplegia and hemiparesis. allergic rhinitis, dyspagia, aphasia. hypokalemia, hyperlipidemia - Surgical History Past Surgical History?: Yes Additional Surgical History: unknown - Social History Smoking Status: Never Smoker - Medications Home Medications: Home Medications Medication Instructions Recorded Confirmed Last Taken Type Acetaminophen [Tylenol] 2 tab PO BID 07/27/20 07/27/20 Unknown History Aspirin [Aspirin BABY CHEW TAB] 81 mg PO QDAY 07/27/20 07/27/20 Unknown History Atorvastatin Calcium [Lipitor] 80 mg PO QHS 07/27/20 07/27/20 Unknown History Baclofen 5 mg PO TID 07/27/20 07/27/20 Unknown History Hydralazine HCl 50 mg PO Q8HR 07/27/20 07/27/20 Unknown History Melatonin [Melatonin 3MG TAB 3 mg PO QDAY 07/27/20 07/27/20 Unknown History RAPDIS] NIFEdipine [Nifedipine ER] 60 mg PO QDAY 07/27/20 07/27/20 Unknown History Sennosides [Senna] 2 tab PO DAILY PRN 07/27/20 07/27/20 Unknown History Sertraline HCl [Zoloft] 2 tab PO QAM 07/27/20 07/27/20 Unknown History carvediloL [Coreg] 25 mg PO BID 07/27/20 07/27/20 Unknown History cloNIDine-TTS PATCH [Catapres-Tts 1 patch TD Q7D 07/27/20 07/27/20 Unknown History 0.3mg Patch] donepeziL [Aricept] 10 mg PO QHS 07/27/20 07/27/20 Unknown History levETIRAcetam [Keppra] 500 mg PO BID 07/27/20 07/27/20 Unknown History polyethylene glycoL 3350 [Miralax 17 gm PO QDAY 07/27/20 07/27/20 Unknown History 3350] Losartan [Cozaar] 50 mg PO QDAY #30 tablet 08/01/20 Unknown Rx ED Physical Exam - General Limitations: No Limitations General appearance: alert, in no apparent distress - Head Head exam: Present: atraumatic, normocephalic, normal inspection - ENT ENT exam: Present: mucous membranes dry - Neck Neck exam: Present: normal inspection, full ROM. Absent: tenderness, meningismus - Respiratory Respiratory exam: Present: normal lung sounds bilaterally - Cardiovascular Cardiovascular Exam: Present: regular rate, normal rhythm, normal heart sounds - GI/Abdominal GI/Abdominal exam: Present: soft, normal bowel sounds. Absent: distended, tenderness, guarding, rebound, rigid, organomegaly, mass, bruit, pulsatile mass, hernia - Extremities Exam Extremities exam: Present: normal capillary refill. Absent: pedal edema, calf tenderness - Back Exam Back exam: Absent: CVA tenderness (R), CVA tenderness (L) - Neurological Exam Neurological exam: Present: alert - Skin Skin exam: Present: warm, dry ED Course Vital Signs 08/16/20 08/16/20 14:52 16:26 Temperature 98.6 F Pulse Rate 73 Respiratory 16 18 Rate Blood Pressure 142/82 O2 Sat by Pulse 100 100 Oximetry ED Medical Decision Making - Lab Data Result diagrams: 08/16/20 16:58 08/16/20 16:58 - EKG Data -: EKG Interpreted by Wy EKG shows normal: sinus rhythm Rate: normal - EKG Data Interpretation: no acute changes - Radiology Data Radiology results: report reviewed - Medical Decision Making Patient is 59 years old female, care home patient with history of CVA, hypertension, seizure and depression. Patient brought to the emergency room via EMS from her current care home for evaluation of failure to thrive. [facility] staff informed the EMS that patient refused to eat or drink for the last 3 days. Patient is not communicating so most of the history is from patient medical record and from EMS report. Patient started on normal saline. Patient labs reviewed and showed a sodium of 163 and a chloride of 120. Patient with significant hypernatremia most likely secondary to dehydration secondary to decreased p.o. intake. Patient also found to have a UTI. Patient started on Rocephin 1 g IV. I discussed the patient with Dr. Yoder, he agreed to admit the patient to medical service for further management. Critical Care Time: Yes Critical care time in (mins) excluding proc time.: 30 Critical care attestation.: If time is entered above; I have spent that time in minutes in the direct care of this critically ill patient, excluding procedure time. ED Disposition Clinical Impression: Acute hypernatremia, Hyperchloremia, Dehydration, Failure to thrive Disposition: 09 OP ADMIT IP TO THIS HOSP Is pt being admited?: Yes Condition: Stable Referrals: PRIMARY CARE, [Primary Care Provider] - 3-5 Days
[2020-08-16 17:15] LABS: Bacteria,Urine 3+ /HPF (Negative); Bilirubin,Urine NEG (Negative); Blood,Urine NEG (Negative); Color,Urine Yellow (Yellow); Mucus,Urine FEW /HPF; Protein,Urine <15 mg/dL mg/dL (Negative)
--- NOTE | 2020-08-16 17:21 | XRay Report ---
. CHEST 1 VIEW INDICATION / CLINICAL INFORMATION: Weakness. COMPARISON: 07/27/2020 FINDINGS: SUPPORT DEVICES: None. HEART / MEDIASTINUM: Stable. LUNGS / PLEURA: No significant pulmonary or pleural abnormality. No pneumothorax. ADDITIONAL FINDINGS: 2.0 x 1.6 cm soft tissue density lesion in the right breast tissue. Generalized osteopenia. IMPRESSION: 1. No acute cardiopulmonary findings. 2. 2.0 x 1.6 cm soft tissue density lesion of the right breast tissue. Correlation with mammography i s recommended. Signer Name: Joni West MD Signed: 08/16/2020 5:17 PM Workstation Name: [id number]
[2020-08-16 17:36] LABS: Blood Urea Nitrogen 24 mg/dL (7-17); Calcium 9.3 mg/dL (8.4-10.2); Hemolysis Index 14
[2020-08-16 17:37] LABS: BUN/Creatinine Ratio 48
[2020-08-16 17:45] LABS: Basophils % (Auto) 0.4 % (0.0-1.8); Eosinophils # (Auto) 0.1 K/mm3 (0.0-0.4); Hematocrit 31.7 % (30.3-42.9); Hemoglobin 9.7 gm/dl (10.1-14.3); Lymphocytes # (Auto) 1.3 K/mm3 (1.2-5.4); Lymphocytes % (Auto) 11.7 % (13.4-35.0); Mean Corpuscular HGB Conc 31 % (30-34); Mean Corpuscular Volume 93 fl (79-97); Monocytes # (Auto) 0.7 K/mm3 (0.0-0.8); Monocytes % (Auto) 6.1 % (0.0-7.3); Platelet Count 285 K/mm3 (140-440); Red Blood Count 3.41 M/mm3 (3.65-5.03); Red Cell Distribution Width 18.2 % (13.2-15.2)
[2020-08-16 17:55] LABS: INR 1.22 (0.87-1.13)
--- NOTE | 2020-08-16 18:06 | Cat Scan Report ---
CT head/brain wo con INDICATION / CLINICAL INFORMATION: 59 years Female; Weakness. TECHNIQUE: Routine CT head without contrast. All CT scans at this location are performed using CT dos e reduction for ALARA by means of automated exposure control. COMPARISON: None. FINDINGS: BRAIN / INTRACRANIAL CONTENTS: Area of subacute to chronic infarction seen in the MCA territory on th e left Gregor frontoparietal region. Old corpus striatal infarct seen on the left as well, in the anteri or gangliocapsular region. Subacute chronic appearing lacunar infarcts seen in the left thalamus. Sma ll, old appearing lacunar infarct noted in the right thalamus. Old, small branch PICA infarct seen on the left. Lacunar-type infarct suggested in the rhys leftward of midline. Otherwise, no acute hemorrhage, mass effect, midline shift, hydrocephalus, or acute, large territori al infarct. Mild, diffuse cerebral and cerebellar atrophy. Mild to moderate degree of hippocampal atrophy suggest ed bilaterally. There are moderate to extensive, somewhat confluent areas of decreased attenuation in the white matte r of the cerebral hemispheres, as well as the gangliocapsular regions. These are nonspecific findings and may be related to microangiopathy (hypertension, diabetes, atherosclerosis), given the patient's age. It might be difficult to evaluate for small areas of ischemia without diffusion imaging by MRI. CRANIOCERVICAL JUNCTION: No significant abnormality. ORBITS: No significant abnormality of visualized orbits. SINUSES / MASTOIDS: No significant abnormality in the visualized paranasal sinuses or mastoid air bairon ls. ADDITIONAL FINDINGS: Atherosclerotic disease is seen in the anterior and posterior circulation. IMPRESSION: 1. No focal mass, hemorrhage, hydrocephalus, or acute, large territorial infarct. Follow-up with diff usion imaging by MRI, as clinically warranted. Signer Name: Inocente Quiroga MD, III Signed: 08/16/2020 6:01 PM Workstation Name: [id number]
[2020-08-16] MEDS ORDERED: cefTRIAXone/NS 1 GM/50 ML 1 GM/50 ML BAG IV ONE (18:07)
[2020-08-16] MEDS ORDERED: ALBUTEROL 2.5 MG/3 ML NEBU IH PRN (18:17)
[2020-08-16] MEDS ORDERED: ONDANSETRON 4 MG/2 ML INJ IV PRN (18:17)
[2020-08-16] MEDS ORDERED: ACETAMINOPHEN 325 MG TAB PO PRN (18:17)
--- NOTE | 2020-08-16 18:19 | History and Physical Report ---
History of Present Illness Chief complaint: She is just going downhill History of present illness: 59 [facility] patient with CVA complicated by dysphagia as well as aphasia, HTN, Seizure Disorder, Depression, Vascular Dementia, Cerebral Atherosclerosis, HLD presents to ED for evaluation. Patient is confused with diminished cognition and is unable to provide history at the time of my evaluation. Patient history taken from EMS staff, ED staff, as well as shelter facility staff. As per staff the patient has experienced increased confusion, decreased verbalization, decreased interaction with staff, and decreased oral intake over the past 3 days. EMS notified and upon arrival the patient was found to be in distress and subsequently transported to [facility] for further care and evaluation of the aforementioned symptoms. Patient seen and evaluated in the emergency department. All lab and imaging studies reviewed. The patient was found to have urinary tract infection, metabolic encephalopathy, severe hyponatremia, as well as volume depletion secondary to free water deficit. Patient is currently bedbound, nonambulatory with a palliative performance score of 30%. Patient currently requires 6/6 assistance with all activities of daily living. Patient admitted to medical floor and initiated on IV antibiotic therapy as well as IV fluid resuscitation therapy. Nephrology team consulted in ED. No further history is obtainable. Patient has diminished cognition at the time of my evaluation but has a positive gag reflex and is able to protect her airway. prison facility staff deny report of fever, chills, palpitations, productive cough, skin rash, recent ill contacts, or known exposure to COVID-19. Advanced care planning conducted in ED. Prior admission on 07/29/2020 reviewed. All medication listed at time of admission has been reconciled. Past History Past Medical History: hypertension, seizures, stroke, other (See HPI) Past Surgical History: No surgical history, Other (Reviewed) Social history: single. denies: smoking, alcohol abuse, prescription drug abuse Family history: hypertension Medications and Allergies Allergies Allergy/AdvReac Type Severity Reaction Status Date / Time lisinopril Allergy Unknown Verified 07/27/20 21:47 Home Medications Medication Instructions Recorded Confirmed Last Taken Type Acetaminophen [Tylenol] 2 tab PO BID 07/27/20 07/27/20 Unknown History Aspirin [Aspirin BABY CHEW TAB] 81 mg PO QDAY 07/27/20 07/27/20 Unknown History Atorvastatin Calcium [Lipitor] 80 mg PO QHS 07/27/20 07/27/20 Unknown History Baclofen 5 mg PO TID 07/27/20 07/27/20 Unknown History Hydralazine HCl 50 mg PO Q8HR 07/27/20 07/27/20 Unknown History Melatonin [Melatonin 3MG TAB 3 mg PO QDAY 07/27/20 07/27/20 Unknown History RAPDIS] NIFEdipine [Nifedipine ER] 60 mg PO QDAY 07/27/20 07/27/20 Unknown History Sennosides [Senna] 2 tab PO DAILY PRN 07/27/20 07/27/20 Unknown History Sertraline HCl [Zoloft] 2 tab PO QAM 07/27/20 07/27/20 Unknown History carvediloL [Coreg] 25 mg PO BID 07/27/20 07/27/20 Unknown History cloNIDine-TTS PATCH [Catapres-Tts 1 patch TD Q7D 07/27/20 07/27/20 Unknown History 0.3mg Patch] donepeziL [Aricept] 10 mg PO QHS 07/27/20 07/27/20 Unknown History levETIRAcetam [Keppra] 500 mg PO BID 07/27/20 07/27/20 Unknown History polyethylene glycoL 3350 [Miralax 17 gm PO QDAY 07/27/20 07/27/20 Unknown History 3350] Losartan [Cozaar] 50 mg PO QDAY #30 tablet 08/01/20 Unknown Rx Active Meds: Active Medications Acetaminophen (Tylenol) 650 mg PO Q4H PRN PRN Reason: Pain MILD(1-3)/Fever >100.5/SAWYER Albuterol (Proventil) 2.5 mg IH Q4HRT PRN PRN Reason: Shortness Of Breath Ceftriaxone Sodium (Rocephin/Ns 1 Gm/50 Ml) 1 gm in 50 mls @ 100 mls/hr IV ONCE ONE; Protocol Stop: 08/16/20 18:36 Ondansetron HCl (Zofran) 4 mg IV Q8H PRN PRN Reason: Nausea And Vomiting Sodium Chloride (Sodium Chloride Flush Syringe 10 Ml) 10 ml IV BID RACHEL Sodium Chloride (Sodium Chloride Flush Syringe 10 Ml) 10 ml IV PRN PRN PRN Reason: LINE FLUSH Review of Systems ROS unobtainable: due to mental status Exam - Constitutional Vitals: Temp Pulse Resp BP Pulse Ox 98.6 F 82 18 142/82 100 08/16/20 14:52 08/16/20 14:52 08/16/20 16:26 08/16/20 14:52 08/16/20 16:26 General appearance: Present: mild distress - EENT Eyes: Present: PERRL ENT: clear oral mucosa, hearing decreased, other (Oral mucosa dry) - Neck Neck: Present: supple - Respiratory Respiratory effort: normal Respiratory: bilateral: CTA - Cardiovascular Rhythm: regular Heart Sounds: Present: S1 & S2 - Extremities Extremities: no ischemia Peripheral Pulses: within normal limits - Abdominal General gastrointestinal: Present: soft, non-tender, non-distended, normal bowel sounds Female genitourinary: Present: normal - Integumentary Integumentary: Present: dry, clammy, decreased turgor - Musculoskeletal Musculoskeletal: generalized weakness - Psychiatric Psychiatric: no appropriate mood/affect, no intact judgment & insight, no memory intact - Neurologic Neurologic: CNII-XII intact, moves all extremities, no gait normal HEART Score - HEART Score Troponin: Troponin T < 0.010 ng/mL (0.00-0.029) 08/16/20 16:58 Troponin T < 0.010 ng/mL (0.00-0.029) 08/16/20 16:58 Results - Labs CBC & Chem 7: 08/16/20 16:58 08/16/20 16:58 Labs: Abnormal lab results 08/16/20 08/16/20 08/16/20 Range/Units 16:58 16:58 16:58 RBC 3.41 L (3.65-5.03) M/mm3 Hgb 9.7 L (10.1-14.3) gm/dl RDW 18.2 H (13.2-15.2) % Lymph % (Auto) 11.7 L (13.4-35.0) % Seg Neutrophils % 80.8 H (40.0-70.0) % Seg Neutrophils # 8.8 H (1.8-7.7) K/mm3 PT 15.7 H (12.2-14.9) Sec. INR 1.22 H (0.87-1.13) Sodium 163 H* (137-145) mmol/L Chloride 122.2 H (98-107) mmol/L BUN 24 H (7-17) mg/dL Creatinine 0.5 L (0.6-1.2) mg/dL Glucose 118 H (65-100) mg/dL Magnesium 2.50 H (1.7-2.3) mg/dL Urine WBC (Auto) (0.0-6.0) /HPF 08/16/20 Range/Units Unknown RBC (3.65-5.03) M/mm3 Hgb (10.1-14.3) gm/dl RDW (13.2-15.2) % Lymph % (Auto) (13.4-35.0) % Seg Neutrophils % (40.0-70.0) % Seg Neutrophils # (1.8-7.7) K/mm3 PT (12.2-14.9) Sec. INR (0.87-1.13) Sodium (137-145) mmol/L Chloride (98-107) mmol/L BUN (7-17) mg/dL Creatinine (0.6-1.2) mg/dL Glucose (65-100) mg/dL Magnesium (1.7-2.3) mg/dL Urine WBC (Auto) 10.0 H (0.0-6.0) /HPF Assessment and Plan - Patient Problems (1) Acute metabolic encephalopathy Current Visit: No Status: Acute Plan to address problem: CT head, BMP, BNP, neuro check, seizure precautions, aspiration precautions, fall precautions, thyroid panel (2) Hyperosmolality with hypernatremia Current Visit: Yes Status: Acute Plan to address problem: IV fluid resuscitation therapy with D5 water, repeat BMP in a.m. to monitor serum sodium, supportive care, nephrology team consulted in ED. (3) Vascular dementia Current Visit: Yes Status: Acute Qualifiers: Dementia behavioral disturbance: without behavioral disturbance Qualified Code(s): F01.50 - Vascular dementia without behavioral disturbance Plan to address problem: Verbal prompting, verbal redirection, benzodiazepine therapy as clinically indicated. (4) Cerebral atherosclerosis Current Visit: Yes Status: Acute Plan to address problem: Risk factor reduction, antiplatelet therapy, supportive care (5) CVA, old, dysphagia Current Visit: No Status: Chronic Plan to address problem: Supportive care, antiplatelet therapy, continue medical management. Continue statin therapy. (6) Seizures Current Visit: No Status: Chronic Plan to address problem: Seizure precautions, supportive care. Continue Keppra twice daily (7) DVT prophylaxis Current Visit: Yes Status: Acute Plan to address problem: SCD to bilateral lower extremities while in bed, prophylactic anticoagulation (8) Advance care planning Current Visit: Yes Status: Acute Plan to address problem: Disease education conducted, patient is full code, prognosis discussed, care plan discussed, staff knowledges understanding and agreement with care plan. +30 minutes.
[2020-08-16] MEDS ORDERED: SENNOSIDES PO PRN (18:21)
[2020-08-16] MEDS ORDERED: cloNIDine TTS 0.3 MG/24 HR PATCH TD SCH (19:00)
[2020-08-16] MEDS ORDERED: DEXTROSE 50% IN WATER (25GM) 50 ML SYRINGE IV PRN (19:05)
[2020-08-16] MEDS ORDERED: NON-FORMULARY EACH (Baclofen [Baclofen] 5 MG) PO SCH (20:00)
[2020-08-16] MEDS ORDERED: NON-FORMULARY EACH (Hydralazine Hcl [Hydralazine Hcl] 50 MG) PO SCH (22:00)
[2020-08-16] MEDS ORDERED: NON-FORMULARY EACH (Acetaminophen [Tylenol] 2 TAB) PO SCH (22:00)
[2020-08-16] MEDS ORDERED: levETIRAcetam 500 MG/5 ML ORAL LIQD PO SCH (22:00)
[2020-08-16] MEDS ORDERED: NON-FORMULARY EACH (Atorvastatin Calcium [Lipitor] 80 MG) PO SCH (22:00)
[2020-08-16] MEDS ORDERED: ACETAMINOPHEN 325 MG TAB ONE (22:14)
[2020-08-16] MEDS ORDERED: levETIRAcetam 500 MG TAB PO ONE (22:14)
[2020-08-16] MEDS ORDERED: carvediloL 25 MG TAB ONE (22:15)
[2020-08-16] MEDS ORDERED: BACLOFEN 10 MG TAB ONE ×2 (22:15→22:40)
[2020-08-16] MEDS ORDERED: MELATONIN 5 MG TAB PO ONE (22:15)
[2020-08-16] MEDS ORDERED: HEPARIN 5,000 UNIT/1 ML VIAL ONE (22:16)
[2020-08-16] MEDS: ACETAMINOPHEN 325 MG TAB PO SCH (22:21)
[2020-08-16] MEDS: BACLOFEN 10 MG TAB PO SCH (22:25)
[2020-08-16] MEDS: carvediloL 25 MG TAB PO SCH (22:26)
[2020-08-16] MEDS ORDERED: levETIRAcetam 500 MG/5 ML ORAL LIQD ONE (22:27)
[2020-08-16] MEDS: MELATONIN 5 MG TAB PO SCH (22:27)
[2020-08-16] MEDS: HEPARIN 5,000 UNIT/1 ML VIAL SUB-Q SCH (22:29)
[2020-08-16] MEDS: DONEPEZIL 10 MG TAB PO SCH (22:30)
[2020-08-16] MEDS ORDERED: hydrALAZINE 25 MG TAB ONE (22:34)
[2020-08-16] MEDS: hydrALAZINE 25 MG TAB PO SCH (22:36)
[2020-08-16] MEDS: INSULIN LISPRO 100 UNIT/ML VIAL 3 mL SUB-Q SCH (23:55)
[2020-08-17 05:10] LABS: Blood Urea Nitrogen 24 mg/dL (7-17); Calcium 8.8 mg/dL (8.4-10.2); Hemolysis Index 1
[2020-08-17 05:15] LABS: BUN/Creatinine Ratio 60
[2020-08-17] MEDS ORDERED: BACLOFEN 10 MG TAB ONE (06:09)
[2020-08-17] MEDS: hydrALAZINE 25 MG TAB PO SCH ×3 (06:13→23:45)
[2020-08-17] MEDS: INSULIN LISPRO 100 UNIT/ML VIAL 3 mL SUB-Q SCH ×4 (06:17→23:49)
[2020-08-17] MEDS: BACLOFEN 10 MG TAB PO SCH ×3 (07:02→23:46)
[2020-08-17] MEDS ORDERED: SODIUM CHLORIDE 0.45% 1000 ML 1,000 ML IV ONE (08:30)
[2020-08-17] MEDS: DEXTROSE 5% IN WATER 1,000 ML IV SCH ×2 (09:51→18:07)
[2020-08-17] MEDS: HEPARIN 5,000 UNIT/1 ML VIAL SUB-Q SCH ×2 (10:00→23:46)
[2020-08-17] MEDS ORDERED: MELATONIN 3 MG PO SCH (10:00)
[2020-08-17] MEDS ORDERED: NON-FORMULARY EACH (Nifedipine [Nifedipine Er] 60 MG) PO SCH (10:00)
[2020-08-17] MEDS ORDERED: NIFEdipine XL 60 MG TAB PO SCH (10:00)
--- NOTE | 2020-08-17 12:10 | Consultation ---
History of Present Illness - Reason for Consult Consult date: 08/17/20 hypernatremia - History of Present Illness 59-year-old -[place] female with a past medical history significant for hypertension, hyperlipidemia, previous cerebrovascular accident, severe dementia, coming from a sn[facility] facility, presented to the emergency department secondary to worsening mentation in the setting of possible underlying urinary tract infection. Initial laboratory studies were also concerning for significant hypernatremia for which nephrology consultation was sought at this time. Past History Past Medical History: hypertension, seizures, stroke, other (See HPI) Past Surgical History: No surgical history, Other (Reviewed) Social history: single. denies: smoking, alcohol abuse, prescription drug abuse Family history: hypertension Medications and Allergies Allergies Allergy/AdvReac Type Severity Reaction Status Date / Time lisinopril Allergy Unknown Verified 07/27/20 21:47 Home Medications Medication Instructions Recorded Confirmed Last Taken Type Acetaminophen [Tylenol] 2 tab PO BID 07/27/20 07/27/20 Unknown History Aspirin [Aspirin BABY CHEW TAB] 81 mg PO QDAY 07/27/20 07/27/20 Unknown History Atorvastatin Calcium [Lipitor] 80 mg PO QHS 07/27/20 07/27/20 Unknown History Baclofen 5 mg PO TID 07/27/20 07/27/20 Unknown History Hydralazine HCl 50 mg PO Q8HR 07/27/20 07/27/20 Unknown History Melatonin [Melatonin 3MG TAB 3 mg PO QDAY 07/27/20 07/27/20 Unknown History RAPDIS] NIFEdipine [Nifedipine ER] 60 mg PO QDAY 07/27/20 07/27/20 Unknown History Sennosides [Senna] 2 tab PO DAILY PRN 07/27/20 07/27/20 Unknown History Sertraline HCl [Zoloft] 2 tab PO QAM 07/27/20 07/27/20 Unknown History carvediloL [Coreg] 25 mg PO BID 07/27/20 07/27/20 Unknown History cloNIDine-TTS PATCH [Catapres-Tts 1 patch TD Q7D 07/27/20 07/27/20 Unknown History 0.3mg Patch] donepeziL [Aricept] 10 mg PO QHS 07/27/20 07/27/20 Unknown History levETIRAcetam [Keppra] 500 mg PO BID 07/27/20 07/27/20 Unknown History polyethylene glycoL 3350 [Miralax 17 gm PO QDAY 07/27/20 07/27/20 Unknown History 3350] Losartan [Cozaar] 50 mg PO QDAY #30 tablet 08/01/20 Unknown Rx Active Meds: Active Medications Acetaminophen (Tylenol) 650 mg PO Q4H PRN PRN Reason: Pain MILD(1-3)/Fever >100.5/SAWYER Acetaminophen (Tylenol) 650 mg PO BID [facility] Last Admin: 08/16/20 22:21 Dose: 650 mg Documented by: Albuterol (Proventil) 2.5 mg IH Q4HRT PRN PRN Reason: Shortness Of Breath Aspirin (Baby Aspirin) 81 mg PO QDAY [facility] Atorvastatin Calcium (Lipitor) 80 mg PO QHS [facility] Last Admin: 08/16/20 22:26 Dose: 80 mg Documented by: Baclofen (Lioresal) 5 mg PO Q8HR [facility] Last Admin: 08/17/20 07:02 Dose: 5 mg Documented by: Carvedilol (Coreg) 25 mg PO BID [facility] Last Admin: 08/16/20 22:26 Dose: 25 mg Documented by: Clonidine HCl (Catapres-Tts Patch) 0.3 mg TD Mo [facility] Last Admin: 08/16/20 22:30 Dose: 0.3 mg Documented by: Dextrose (D50w (25gm) Syringe) 50 ml IV Q30MIN PRN; Protocol PRN Reason: Hypoglycemia Donepezil HCl (Aricept) 10 mg PO QHS [facility] Last Admin: 08/16/20 22:30 Dose: 10 mg Documented by: Heparin Sodium (Porcine) (Heparin) 5,000 unit SUB-Q Q12HR [facility] Last Admin: 08/16/20 22:29 Dose: 5,000 unit Documented by: Hydralazine HCl (Apresoline) 50 mg PO Q8HR [facility] Last Admin: 08/17/20 06:13 Dose: Not Given Documented by: Dextrose (D5w) 1,000 mls @ 100 mls/hr IV DIRECT [facility] Last Admin: 08/17/20 09:51 Dose: 100 mls/hr Documented by: Insulin Human Lispro (Humalog) 0 unit SUB-Q Q6H RACHEL; Protocol Last Admin: 08/17/20 08:00 Dose: Not Given Documented by: Levetiracetam (Keppra) 500 mg PO BID [facility] Last Admin: 08/16/20 22:29 Dose: 500 mg Documented by: Losartan Potassium (Cozaar) 50 mg PO QDAY [facility] Melatonin (Melatonin) 5 mg PO QHS [facility] Last Admin: 08/16/20 22:27 Dose: 5 mg Documented by: Nifedipine (Procardia Xl) 60 mg PO QDAY [facility] Ondansetron HCl (Zofran) 4 mg IV Q8H PRN PRN Reason: Nausea And Vomiting Polyethylene Glycol (Miralax 3350) 17 gm PO QDAY [facility] Senna (Senokot) 17.2 mg PO DAILY PRN PRN Reason: Laxative Effect Sertraline HCl (Zoloft) 200 mg PO QAM [facility] Sodium Chloride (Sodium Chloride Flush Syringe 10 Ml) 10 ml IV BID [facility] Last Admin: 08/16/20 22:34 Dose: 10 ml Documented by: Sodium Chloride (Sodium Chloride Flush Syringe 10 Ml) 10 ml IV PRN PRN PRN Reason: LINE FLUSH Review of Systems ROS unobtainable: due to mental status Exam - Vital Signs Vital signs: Vital Signs Pulse Ox 98 08/16/20 14:41 - General Appearance General appearance: appears stated age, chronically ill, frail EENT: ATNC Neck: Present: neck supple Respiratory: Clear to Ascultation Heart: regular Gastrointestinal: Present: normal Integumentary: warm and dry Neurologic: aphasic Musculoskeletal: Present: deferred Results - Lab Results 08/16/20 16:58 08/17/20 04:10 Most recent lab results Calcium 8.8 mg/dL (8.4-10.2) 08/17/20 04:10 Magnesium 2.50 mg/dL (1.7-2.3) H 08/16/20 16:58 Assessment and Plan - Patient Problems (1) Hypernatremia Current Visit: No Status: Acute Plan to address problem: continue with current free water repletion. Patient has been started on D5 half-normal saline. We will closely monitor. (2) Urinary tract infection Current Visit: Yes Status: Acute Plan to address problem: antibiotic management per primary attending. (3) Acute metabolic encephalopathy Current Visit: No Status: Acute Plan to address problem: she has underlying history of dementia. Acute worsening may be in the setting of aforementioned urinary tract infection and hypernatremia. (4) Failure to thrive Current Visit: Yes Status: Chronic Plan to address problem: would recommend dietary consultation.
--- NOTE | 2020-08-17 14:18 | Progress Note ---
Assessment and Plan Assessment and plan: Patient is a 59 [facility] patient with CVA complicated by dysphagia as well as aphasia, HTN, Seizure Disorder, Depression, Vascular Dementia, Cerebral Atherosclerosis, HLD presents to ED for evaluation. Patient is confused with diminished cognition and is unable to provide history at the time of my evaluation. Patient history taken from EMS staff, ED staff, as well as [facility] facility staff. As per staff the patient has experienced increased confusion, decreased verbalization, decreased interaction with staff, and decreased oral intake over the past 3 days. EMS run sheet is not available to me at this time but it was documented that the patient was found in distress prior to being transferred to our facility. Patient seen and evaluated in the emergency department. All lab and imaging studies reviewed. The patient was found to have urinary tract infection, metabolic encephalopathy, severe hyponatremia, as well as volume depletion secondary to free water deficit. Patient is currently Aphasic bedbound, nonambulatory with a palliative performance score of 30%. The admitting physician patient currently requires 6/6 assistance with all activities of daily living. Patient admitted to medical floor and initiated on IV antibiotic therapy as well as IV fluid resuscitation therapy. Nephrology team consulted in ED. No further history is obtainable. Patient has diminished cognition at the time of my evaluation but has a positive gag reflex and is able to protect her airway. retirement facility staff deny report of fever, chills, palpitations, productive cough, skin rash, recent ill contacts, or known exposure to COVID-19. Advanced care planning conducted in ED. Acute metabolic encephalopathy Sacral ulcer with presumed abscess Systemic inflammatory response syndrome without organ dysfunction, no evidence of sepsis Hyperosmolar with hypernatremia Presumed vascular dementia Prior CVA with dysphagia as well as aphasia- Per staff that I spoke with Cerebral Atherosclerosis Bilateral lower extremity ulcers Seizure disorder Hypertension Depression Hyperlipidemia Total care with activity of daily living Plan I did [facility] who states that the patient had stopped eating and they had actually discussed with the son who had recommended and agreed for a PEG tube placement. They were in the process of this prior to the patient being transferred to the hospital. Also on discussion with the nurse patient does have a sacral ulcer which was present on admission appears to have some abscess considering the foul order. We will start the patient on vancomycin. Will obtain wound culture will obtain wound care and based on their recommendation patient may benefit from debridement by surgery. At that time ID consultation may be sought. GI consultation peg placement Continue to monitor labs considering hypernatremia which is not improving Renal input appreciated Also prevention methodologies including every [address] Dobbhoff and start on tube feeds. I have placed a call to the family son in particular no call back yet DVT and GI prophylaxis Patient is chronically ill with acute pathology that needs immediate intervention and will require continued inpatient stay All available imaging studies have been reviewed by me CT of the head shows no current acute pathology. History Interval history: Patient seen and examined nonverbal, lethargic appearing does not follow any commands just gazes. Unknown baseline at this time. Per nursing staff multiple ulcers with foul odor. Hospitalist Physical - Physical exam Narrative exam: General appearance: Present: not following any commands, chronically ill- appearing - EENT Eyes: Present: PERRL ENT: clear oral mucosa, unable to assess hearing, other (Oral mucosa dry) - Neck Neck: Present: supple - Respiratory Respiratory effort: normal Respiratory: bilateral: CTA - Cardiovascular Rhythm: regular Heart Sounds: Present: S1 & S2 - Extremities Extremities: no ischemia Peripheral Pulses: within normal limits - Abdominal General gastrointestinal: Present: soft, non-tender, non-distended, normal bowel sounds Female genitourinary: Present: normal - Integumentary Integumentary: Present: Multiple ulceration including a sacral ulcer with foul odor. Dry, clammy, decreased turgor - Musculoskeletal Musculoskeletal: generalized weakness - Psychiatric Psychiatric: no appropriate mood/affect, no intact judgment & insight, no memory intact - Neurologic Neurologic: CNII-XII intact, no gait normal - Constitutional Vitals: Temp Pulse Resp BP Pulse Ox 99.2 F 64 20 145/96 99 08/17/20 08:52 08/17/20 08:52 08/17/20 08:52 08/17/20 08:52 08/17/20 08:52 General appearance: Present: mild distress HEART Score - HEART Score Troponin: Troponin T < 0.010 ng/mL (0.00-0.029) 08/16/20 16:58 Troponin T < 0.010 ng/mL (0.00-0.029) 08/16/20 16:58 Results - Labs CBC & Chem 7: 08/16/20 16:58 08/17/20 04:10 Labs: Laboratory Last Values WBC 10.9 K/mm3 (4.5-11.0) 08/16/20 16:58 RBC 3.41 M/mm3 (3.65-5.03) L 08/16/20 16:58 Hgb 9.7 gm/dl (10.1-14.3) L 08/16/20 16:58 Hct 31.7 % (30.3-42.9) 08/16/20 16:58 MCV 93 fl (79-97) 08/16/20 16:58 MCH 28 pg (28-32) 08/16/20 16:58 MCHC 31 % (30-34) 08/16/20 16:58 RDW 18.2 % (13.2-15.2) H 08/16/20 16:58 Plt Count 285 K/mm3 (140-440) 08/16/20 16:58 Lymph % (Auto) 11.7 % (13.4-35.0) L 08/16/20 16:58 Leon % (Auto) 6.1 % (0.0-7.3) 08/16/20 16:58 Eos % (Auto) 1.0 % (0.0-4.3) 08/16/20 16:58 Baso % (Auto) 0.4 % (0.0-1.8) 08/16/20 16:58 Lymph # (Auto) 1.3 K/mm3 (1.2-5.4) 08/16/20 16:58 Leon # (Auto) 0.7 K/mm3 (0.0-0.8) 08/16/20 16:58 Eos # (Auto) 0.1 K/mm3 (0.0-0.4) 08/16/20 16:58 Baso # (Auto) 0.0 K/mm3 (0.0-0.1) 08/16/20 16:58 Seg Neutrophils % 80.8 % (40.0-70.0) H 08/16/20 16:58 Seg Neutrophils # 8.8 K/mm3 (1.8-7.7) H 08/16/20 16:58 PT 15.7 Sec. (12.2-14.9) H 08/16/20 16:58 INR 1.22 (0.87-1.13) H 08/16/20 16:58 Sodium 159 mmol/L (137-145) H 08/17/20 04:10 Potassium 3.6 mmol/L (3.6-5.0) 08/17/20 04:10 Chloride 125.3 mmol/L (98-107) H 08/17/20 04:10 Carbon Dioxide 26 mmol/L (22-30) 08/17/20 04:10 Anion Gap 11 mmol/L 08/17/20 04:10 BUN 24 mg/dL (7-17) H 08/17/20 04:10 Creatinine 0.4 mg/dL (0.6-1.2) L 08/17/20 04:10 Estimated GFR > 60 ml/min 08/17/20 04:10 BUN/Creatinine Ratio 60 % 08/17/20 04:10 Glucose 126 mg/dL (65-100) H 08/17/20 04:10 POC Glucose 135 mg/dL (70-105) H 08/17/20 12:19 Calcium 8.8 mg/dL (8.4-10.2) 08/17/20 04:10 Magnesium 2.50 mg/dL (1.7-2.3) H 08/16/20 16:58 Total Creatine Kinase 37 units/L (30-135) 08/16/20 16:58 Troponin T < 0.010 ng/mL (0.00-0.029) 08/16/20 16:58 Troponin T < 0.010 ng/mL (0.00-0.029) 08/16/20 16:58 Urine Color Yellow (Yellow) 08/16/20 Unknown Urine Turbidity Clear (Clear) 08/16/20 Unknown Urine pH 5.0 (5.0-7.0) 08/16/20 Unknown Ur Specific [place] 1.027 (1.003-1.030) 08/16/20 Unknown Urine Protein <15 mg/dl mg/dL (Negative) 08/16/20 Unknown Urine Glucose (UA) Neg mg/dL (Negative) 08/16/20 Unknown Urine Ketones Tr mg/dL (Negative) 08/16/20 Unknown Urine Blood Neg (Negative) 08/16/20 Unknown Urine Nitrite Neg (Negative) 08/16/20 Unknown Urine Bilirubin Neg (Negative) 08/16/20 Unknown Urine Urobilinogen 4.0 mg/dL (<2.0) 08/16/20 Unknown Ur Leukocyte Esterase Sm (Negative) 08/16/20 Unknown Urine WBC (Auto) 10.0 /HPF (0.0-6.0) H 08/16/20 Unknown Urine RBC (Auto) 1.0 /HPF (0.0-6.0) 08/16/20 Unknown U Epithel Cells (Auto) 1.0 /HPF (0-13.0) 08/16/20 Unknown Urine Bacteria (Auto) 3+ /HPF (Negative) 08/16/20 Unknown Urine Mucus Few /HPF 08/16/20 Unknown Microbiology: Microbiology 08/16/20 Unknown Urine,Clean Catch Urine Culture - Preliminary Gram Negative Simeon 08/16/20 16:58 Peripheral/Venous Blood Culture - Preliminary Culture in Progress 08/16/20 17:05 Peripheral/Venous Blood Culture - Preliminary Culture in Progress Sullivan/IV: IV Catheter Type [Left Hand] INT / Saline Lock Active Medications - Current Medications Current Medications: Generic Name Dose Route Start Last Admin Trade Name Freq PRN Reason Stop Dose Admin Acetaminophen 650 mg 08/16/20 18:17 Tylenol PO Q4H PRN Pain MILD(1-3)/Fever >100.5/SAWYER Acetaminophen 650 mg 08/16/20 22:00 08/16/20 22:21 Tylenol PO 650 mg BID RACHEL Administration Albuterol 2.5 mg 08/16/20 18:17 Proventil IH Q4HRT PRN Shortness Of Breath Aspirin 81 mg 08/17/20 10:00 Baby Aspirin PO QDAY RACHEL Atorvastatin Calcium 80 mg 08/16/20 22:00 08/16/20 22:26 Lipitor PO 80 mg QHS RACHEL Administration Baclofen 5 mg 08/16/20 22:00 08/17/20 07:02 Lioresal PO 5 mg Q8HR RACHEL Administration Carvedilol 25 mg 08/16/20 22:00 08/16/20 22:26 Coreg PO 25 mg BID RACHEL Administration Clonidine HCl 0.3 mg 08/16/20 19:00 08/16/20 22:30 Catapres-Tts Patch TD 0.3 mg Mo RACHEL Administration Dextrose 50 ml 08/16/20 19:05 D50w (25gm) Syringe IV Q30MIN PRN Hypoglycemia Protocol Donepezil HCl 10 mg 08/16/20 22:00 08/16/20 22:30 Aricept PO 10 mg QHS RACHEL Administration Heparin Sodium (Porcine) 5,000 unit 08/16/20 22:00 08/17/20 10:00 Heparin SUB-Q 5,000 unit Q12HR RACHEL Administration Hydralazine HCl 50 mg 08/16/20 22:00 08/17/20 06:13 Apresoline PO Not Given Q8HR RACHEL Dextrose 1,000 mls @ 100 mls/hr 08/16/20 20:00 08/17/20 09:51 D5w IV 100 mls/hr DIRECT RACHEL Administration Insulin Human Lispro 0 unit 08/16/20 20:00 08/17/20 08:00 Humalog SUB-Q Not Given Q6H [facility] Protocol Levetiracetam 500 mg 08/17/20 22:00 Keppra PO BID RACHEL Losartan Potassium 50 mg 08/17/20 10:00 Cozaar PO QDAY RACHEL Melatonin 5 mg 08/16/20 22:00 08/16/20 22:27 Melatonin PO 5 mg QHS RACHEL Administration Nifedipine 60 mg 08/17/20 10:00 Procardia Xl PO QDAY RACHEL Ondansetron HCl 4 mg 08/16/20 18:17 Zofran IV Q8H PRN Nausea And Vomiting Polyethylene Glycol 17 gm 08/17/20 10:00 Miralax 3350 PO QDAY [facility] Senna 17.2 mg 08/16/20 18:42 Senokot PO DAILY PRN Laxative Effect Sertraline HCl 200 mg 08/17/20 10:00 Zoloft PO QAM RACHEL Sodium Chloride 10 ml 08/16/20 22:00 08/16/20 22:34 Sodium Chloride Flush Syringe 10 Ml IV 10 ml BID RACHEL Administration Sodium Chloride 10 ml 08/16/20 18:17 Sodium Chloride Flush Syringe 10 Ml IV PRN PRN LINE FLUSH
[2020-08-17] MEDS ORDERED: VANCOMYCIN PHARMACY TO DOSE IV SCH (15:00)
[2020-08-17] MEDS ORDERED: VANCOMYCIN 1,250 MG in SODIUM CHLORIDE 0.9% 250ML 250 ML IV ONE (15:00)
--- NOTE | 2020-08-17 16:47 | XRay Report ---
ABDOMEN 1 VIEW 08/17/2020 2:21 PM INDICATION / CLINICAL INFORMATION: tube placement. COMPARISON: None available. FINDINGS: TUBES / LINES: Feeding tube is coiled in the stomach with the tip at the level the gastric fundus BOWEL GAS PATTERN: No significant abnormality. FREE AIR / EXTRALUMINAL GAS: None. ADDITIONAL FINDINGS: No significant additional findings. IMPRESSION: 1. No acute abnormality Signer Name: Wilbur Schmidt MD Signed: 08/17/2020 4:43 PM Workstation Name: [employer] [id number]
[2020-08-17] MEDS: LOSARTAN 50 MG TAB PO SCH (18:09)
[2020-08-17] MEDS: SERTRALINE 100 MG TAB PO SCH (18:09)
[2020-08-17] MEDS: cefTRIAXone/NS 1 GM/50 ML 1 GM/50 ML BAG IV SCH (18:10)
[2020-08-17] MEDS: carvediloL 25 MG TAB PO SCH ×2 (18:10→23:43)
[2020-08-17] MEDS: ASPIRIN 81 MG TAB CHEW PO SCH (18:10)
[2020-08-17] MEDS: amLODIPine 5 MG TAB PO SCH (18:11)
[2020-08-17] MEDS: ACETAMINOPHEN 325 MG TAB PO SCH ×2 (18:11→23:44)
[2020-08-17] MEDS: POLYETHYLENE GLYCOL 3350 17 GM POWDER PO SCH (18:11)
[2020-08-17] MEDS: SENNOSIDES 8.6 MG TAB PO PRN (18:13)
[2020-08-17] MEDS: MELATONIN 5 MG TAB PO SCH (23:42)
[2020-08-17] MEDS: DONEPEZIL 10 MG TAB PO SCH (23:52)
[2020-08-17] MEDS: levETIRAcetam 500 MG/5 ML ORAL LIQD PO SCH (23:54)
[2020-08-18] MEDS: BACLOFEN 10 MG TAB PO SCH ×3 (05:43→21:26)
[2020-08-18] MEDS: VANCOMYCIN/NS 1 GM/250 ML 1 GM/250 ML BAG IV SCH ×2 (05:43→18:08)
[2020-08-18] MEDS: hydrALAZINE 25 MG TAB PO SCH ×3 (05:44→21:27)
[2020-08-18] MEDS: INSULIN LISPRO 100 UNIT/ML VIAL 3 mL SUB-Q SCH ×4 (06:19→20:59)
[2020-08-18 06:31] LABS: Blood Urea Nitrogen 13 mg/dL (7-17); Calcium 8.6 mg/dL (8.4-10.2); Hemolysis Index 3
[2020-08-18 06:35] LABS: BUN/Creatinine Ratio 33
[2020-08-18] MEDS ORDERED: POTASSIUM CHLORIDE 20 MEQ PACKET FEEDTUBE ONE (06:39)
[2020-08-18] MEDS ORDERED: POTASSIUM CHLORIDE 10 MEQ 10 MEQ/100 ML BAG IV SCH (08:00)
[2020-08-18 08:17] LABS: Blood Urea Nitrogen 13 mg/dL (7-17); Calcium 8.4 mg/dL (8.4-10.2); Hemolysis Index 24
[2020-08-18 08:21] LABS: BUN/Creatinine Ratio 33
[2020-08-18] MEDS: POTASSIUM CHLORIDE 10 MEQ 10 MEQ/100 ML BAG IV SCH ×4 (09:25→13:39)
--- NOTE | 2020-08-18 09:48 | Progress Note ---
Assessment and Plan - Patient Problems (1) Hypernatremia Current Visit: No Status: Acute Plan to address problem: continue with current free water repletion. Patient has been started on D5 half-normal saline. We will closely monitor. (2) Urinary tract infection Current Visit: Yes Status: Acute Plan to address problem: antibiotic management per primary attending. (3) Acute metabolic encephalopathy Current Visit: No Status: Acute Plan to address problem: she has underlying history of dementia. Acute worsening may be in the setting of aforementioned urinary tract infection and hypernatremia. We will continue to monitor (4) Failure to thrive Current Visit: Yes Status: Chronic Plan to address problem: would recommend dietary consultation. Subjective Date of service: 08/18/20 Interval history: No acute changes. Serum sodium level showing improvement this morning. Objective - Vital Signs Vital signs: Vital Signs - 12hr 08/17/20 08/17/20 08/18/20 23:43 23:45 04:10 Temperature 98.8 F Pulse Rate 80 80 84 Respiratory 18 Rate Blood Pressure 138/95 138/95 128/96 O2 Sat by Pulse 97 Oximetry 08/18/20 08/18/20 05:44 09:03 Temperature Pulse Rate 84 Respiratory Rate Blood Pressure 128/96 O2 Sat by Pulse 97 Oximetry - General Appearance General appearance: cachectic, chronically ill, frail EENT: ATNC Neck: no JVD Respiratory: Present: Clear to Ascultation, Normal Exam Cardiology: regular Gastrointestinal: normal Neurologic: aphasia Musculoskeletal: deferred - Lab 08/16/20 16:58 08/18/20 07:14 Most recent lab results Calcium 8.4 mg/dL (8.4-10.2) 08/18/20 07:14 Magnesium 2.50 mg/dL (1.7-2.3) H 08/16/20 16:58 - Allied health notes Allied health notes reviewed: nursing Medications & Allergies - Medications Allergies/Adverse Reactions: Allergies lisinopril Allergy (Verified 07/27/20 21:47) Unknown Home Medications: Home Medications Medication Instructions Recorded Confirmed Last Taken Type Acetaminophen [Tylenol] 2 tab PO BID 07/27/20 07/27/20 Unknown History Aspirin [Aspirin BABY CHEW TAB] 81 mg PO QDAY 07/27/20 07/27/20 Unknown History Atorvastatin Calcium [Lipitor] 80 mg PO QHS 07/27/20 07/27/20 Unknown History Baclofen 5 mg PO TID 07/27/20 07/27/20 Unknown History Hydralazine HCl 50 mg PO Q8HR 07/27/20 07/27/20 Unknown History Melatonin [Melatonin 3MG TAB 3 mg PO QDAY 07/27/20 07/27/20 Unknown History RAPDIS] NIFEdipine [Nifedipine ER] 60 mg PO QDAY 07/27/20 07/27/20 Unknown History Sennosides [Senna] 2 tab PO DAILY PRN 07/27/20 07/27/20 Unknown History Sertraline HCl [Zoloft] 2 tab PO QAM 07/27/20 07/27/20 Unknown History carvediloL [Coreg] 25 mg PO BID 07/27/20 07/27/20 Unknown History cloNIDine-TTS PATCH [Catapres-Tts 1 patch TD Q7D 07/27/20 07/27/20 Unknown History 0.3mg Patch] donepeziL [Aricept] 10 mg PO QHS 07/27/20 07/27/20 Unknown History levETIRAcetam [Keppra] 500 mg PO BID 07/27/20 07/27/20 Unknown History polyethylene glycoL 3350 [Miralax 17 gm PO QDAY 07/27/20 07/27/20 Unknown History 3350] Losartan [Cozaar] 50 mg PO QDAY #30 tablet 08/01/20 Unknown Rx Active Medications: Generic Name Dose Route Start Last Admin Trade Name Freq PRN Reason Stop Dose Admin Acetaminophen 650 mg 08/16/20 18:17 Tylenol PO Q4H PRN Pain MILD(1-3)/Fever >100.5/SAWYER Acetaminophen 650 mg 08/16/20 22:00 08/17/20 23:44 Tylenol PO 650 mg BID RACHEL Administration Albuterol 2.5 mg 08/16/20 18:17 Proventil IH Q4HRT PRN Shortness Of Breath Amlodipine Besylate 7.5 mg 08/17/20 18:00 08/17/20 18:11 Amlodipine PO 7.5 mg QDAY RACHEL Administration Aspirin 81 mg 08/17/20 10:00 08/17/20 18:10 Baby Aspirin PO 81 mg QDAY RACHEL Administration Atorvastatin Calcium 80 mg 08/16/20 22:00 08/17/20 23:44 Lipitor PO 80 mg QHS RACHEL Administration Baclofen 5 mg 08/16/20 22:00 08/18/20 05:43 Lioresal PO 5 mg Q8HR RACHEL Administration Carvedilol 25 mg 08/16/20 22:00 08/17/20 23:43 Coreg PO 25 mg BID RACHEL Administration Clonidine HCl 0.3 mg 08/16/20 19:00 08/16/20 22:30 Catapres-Tts Patch TD 0.3 mg Mo RACHEL Administration Dextrose 50 ml 08/16/20 19:05 D50w (25gm) Syringe IV Q30MIN PRN Hypoglycemia Protocol Donepezil HCl 10 mg 08/16/20 22:00 08/17/20 23:52 Aricept PO 10 mg QHS RACHEL Administration Heparin Sodium (Porcine) 5,000 unit 08/16/20 22:00 08/17/20 23:46 Heparin SUB-Q 5,000 unit Q12HR RACHEL Administration Hydralazine HCl 50 mg 08/16/20 22:00 08/18/20 05:44 Apresoline PO 50 mg Q8HR RACHEL Administration Dextrose 1,000 mls @ 100 mls/hr 08/16/20 20:00 08/18/20 06:17 D5w IV Infused DIRECT RACHEL Infusion Ceftriaxone Sodium 1 gm in 50 mls @ 100 mls/hr 08/17/20 18:00 08/17/20 18:10 Rocephin/Ns 1 Gm/50 Ml IV 100 mls/hr QPM RACHEL Administration Protocol Vancomycin HCl 1 gm in 250 mls @ 166.667 mls/hr 08/18/20 06:00 08/18/20 05:43 Vancomycin/Ns 1 Gm/250 Ml IV 166.667 mls/hr Q12H RACHEL Administration Potassium Chloride 10 meq in 100 mls @ 100 mls/hr 08/18/20 07:00 08/18/20 09:25 Kcl 10meq/100ml IV 08/18/20 10:59 100 mls/hr Q1H RACHEL Administration Insulin Human Lispro 0 unit 08/16/20 20:00 08/18/20 09:28 Humalog SUB-Q 2 unit Q6H RACHEL Administration Protocol Levetiracetam 500 mg 08/17/20 22:00 08/17/20 23:54 Keppra PO 500 mg BID RACHEL Administration Losartan Potassium 50 mg 08/17/20 10:00 08/17/20 18:09 Cozaar PO 50 mg QDAY RACHEL Administration Melatonin 5 mg 08/16/20 22:00 08/17/20 23:42 Melatonin PO 5 mg QHS RACHEL Administration Ondansetron HCl 4 mg 08/16/20 18:17 Zofran IV Q8H PRN Nausea And Vomiting Polyethylene Glycol 17 gm 08/17/20 10:00 08/17/20 18:11 Miralax 3350 PO 17 gm QDAY RACHEL Administration Senna 17.2 mg 08/16/20 18:42 08/17/20 18:13 Senokot PO 17.2 mg DAILY PRN Administration Laxative Effect Sertraline HCl 200 mg 08/17/20 10:00 08/17/20 18:09 Zoloft PO 200 mg QAM RACHEL Administration Sodium Chloride 10 ml 08/16/20 22:00 08/17/20 23:50 Sodium Chloride Flush Syringe 10 Ml IV 10 ml BID RACHEL Administration Sodium Chloride 10 ml 08/16/20 18:17 Sodium Chloride Flush Syringe 10 Ml IV PRN PRN LINE FLUSH
[2020-08-18] MEDS: HEPARIN 5,000 UNIT/1 ML VIAL SUB-Q SCH ×2 (10:00→21:26)
[2020-08-18] MEDS ORDERED: SIMPLE SYRUP 15 ML FEEDTUBE PRN ×2 (10:51)
[2020-08-18] MEDS ORDERED: SODIUM BICARBONATE 325 MG TAB FEEDTUBE PRN (10:51)
[2020-08-18] MEDS ORDERED: LIPASE 10,500/PROTEASE 25,000/AMYLASE 43,750 (UNITS) DR CAP FEEDTUBE PRN (10:51)
--- NOTE | 2020-08-18 11:25 | Gastroenterology Consultation ---
History of Present Illness - Reason for Consult Consult date: 08/18/20 Neurogenic Dysphagia Requesting physician: KRISTY UGALDE - History of Present Illness The patient was admitted from her NH with poor PO intake and an elevated sodium. The poor intake had been noted on a prior admit, and now recommends a feeding tube. Per prior notes, it appears she has lost a considerable amount of weight, and has minimal PO intake. Her family had agreed to a feeding tube as an outpatient, but it had not yet been completed (per [place] records). The patient is nonverbal, and does not respond to commands. Past History Past Medical History: hypertension, seizures, stroke, other (See HPI) Past Surgical History: Other (Lower midline scar c/w hysterectomy) Social history: single. denies: smoking, alcohol abuse, prescription drug abuse Family history: hypertension Medications and Allergies Allergies Allergy/AdvReac Type Severity Reaction Status Date / Time lisinopril Allergy Unknown Verified 07/27/20 21:47 Home Medications Medication Instructions Recorded Confirmed Last Taken Type Acetaminophen [Tylenol] 2 tab PO BID 07/27/20 07/27/20 Unknown History Aspirin [Aspirin BABY CHEW TAB] 81 mg PO QDAY 07/27/20 07/27/20 Unknown History Atorvastatin Calcium [Lipitor] 80 mg PO QHS 07/27/20 07/27/20 Unknown History Baclofen 5 mg PO TID 07/27/20 07/27/20 Unknown History Hydralazine HCl 50 mg PO Q8HR 07/27/20 07/27/20 Unknown History Melatonin [Melatonin 3MG TAB 3 mg PO QDAY 07/27/20 07/27/20 Unknown History RAPDIS] NIFEdipine [Nifedipine ER] 60 mg PO QDAY 07/27/20 07/27/20 Unknown History Sennosides [Senna] 2 tab PO DAILY PRN 07/27/20 07/27/20 Unknown History Sertraline HCl [Zoloft] 2 tab PO QAM 07/27/20 07/27/20 Unknown History carvediloL [Coreg] 25 mg PO BID 07/27/20 07/27/20 Unknown History cloNIDine-TTS PATCH [Catapres-Tts 1 patch TD Q7D 07/27/20 07/27/20 Unknown History 0.3mg Patch] donepeziL [Aricept] 10 mg PO QHS 07/27/20 07/27/20 Unknown History levETIRAcetam [Keppra] 500 mg PO BID 07/27/20 07/27/20 Unknown History polyethylene glycoL 3350 [Miralax 17 gm PO QDAY 07/27/20 07/27/20 Unknown History 3350] Losartan [Cozaar] 50 mg PO QDAY #30 tablet 08/01/20 Unknown Rx Active Meds: Active Medications Acetaminophen (Tylenol) 650 mg PO Q4H PRN PRN Reason: Pain MILD(1-3)/Fever >100.5/SAWYER Acetaminophen (Tylenol) 650 mg PO BID REPLACED BY [facility] Last Admin: 08/17/20 23:44 Dose: 650 mg Documented by: Albuterol (Proventil) 2.5 mg IH Q4HRT PRN PRN Reason: Shortness Of Breath Amlodipine Besylate (Amlodipine) 7.5 mg PO QDAY REPLACED BY [facility] Last Admin: 08/17/20 18:11 Dose: 7.5 mg Documented by: Lipase/Protease/Amylase (Mariola Pena 10,500 Unit) 1 each FEEDTUBE PRN PRN PRN Reason: For Clogged Feeding Tube Aspirin (Baby Aspirin) 81 mg PO QDAY REPLACED BY [facility] Last Admin: 08/17/20 18:10 Dose: 81 mg Documented by: Atorvastatin Calcium (Lipitor) 80 mg PO QHS REPLACED BY [facility] Last Admin: 08/17/20 23:44 Dose: 80 mg Documented by: Baclofen (Lioresal) 5 mg PO Q8HR REPLACED BY [facility] Last Admin: 08/18/20 05:43 Dose: 5 mg Documented by: Carvedilol (Coreg) 25 mg PO BID REPLACED BY [facility] Last Admin: 08/17/20 23:43 Dose: 25 mg Documented by: Clonidine HCl (Catapres-Tts Patch) 0.3 mg TD Mo REPLACED BY [facility] Last Admin: 08/16/20 22:30 Dose: 0.3 mg Documented by: Dextrose (D50w (25gm) Syringe) 50 ml IV Q30MIN PRN; Protocol PRN Reason: Hypoglycemia Donepezil HCl (Aricept) 10 mg PO QHS REPLACED BY [facility] Last Admin: 08/17/20 23:52 Dose: 10 mg Documented by: Heparin Sodium (Porcine) (Heparin) 5,000 unit SUB-Q Q12HR REPLACED BY [facility] Last Admin: 08/17/20 23:46 Dose: 5,000 unit Documented by: Hydralazine HCl (Apresoline) 50 mg PO Q8HR REPLACED BY [facility] Last Admin: 08/18/20 05:44 Dose: 50 mg Documented by: Dextrose (D5w) 1,000 mls @ 100 mls/hr IV DIRECT REPLACED BY [facility] Last Infusion: 08/18/20 06:17 Dose: Infused Documented by: Ceftriaxone Sodium (Rocephin/Ns 1 Gm/50 Ml) 1 gm in 50 mls @ 100 mls/hr IV QPM REPLACED BY [facility]; Protocol Last Admin: 08/17/20 18:10 Dose: 100 mls/hr Documented by: Vancomycin HCl (Vancomycin/Ns 1 Gm/250 Ml) 1 gm in 250 mls @ 166.667 mls/hr IV Q12H REPLACED BY [facility] Last Admin: 08/18/20 05:43 Dose: 166.667 mls/hr Documented by: Insulin Human Lispro (Humalog) 0 unit SUB-Q Q6H REPLACED BY [facility]; Protocol Last Admin: 08/18/20 09:28 Dose: 2 unit Documented by: Levetiracetam (Keppra) 500 mg PO BID REPLACED BY [facility] Last Admin: 08/17/20 23:54 Dose: 500 mg Documented by: Losartan Potassium (Cozaar) 50 mg PO QDAY REPLACED BY [facility] Last Admin: 08/17/20 18:09 Dose: 50 mg Documented by: Magnesium Citrate (Citrate Of Magnesia) 300 ml PO ONCE ONE Stop: 08/18/20 11:19 Melatonin (Melatonin) 5 mg PO QHS REPLACED BY [facility] Last Admin: 08/17/20 23:42 Dose: 5 mg Documented by: Ondansetron HCl (Zofran) 4 mg IV Q8H PRN PRN Reason: Nausea And Vomiting Polyethylene Glycol (Miralax 3350) 17 gm PO QDAY REPLACED BY [facility] Last Admin: 08/17/20 18:11 Dose: 17 gm Documented by: Senna (Senokot) 17.2 mg PO DAILY PRN PRN Reason: Laxative Effect Last Admin: 08/17/20 18:13 Dose: 17.2 mg Documented by: Sertraline HCl (Zoloft) 200 mg PO QAM REPLACED BY [facility] Last Admin: 08/17/20 18:09 Dose: 200 mg Documented by: Simple Syrup (Simple Syrup) 15 ml FEEDTUBE PRN PRN PRN Reason: Hypoglycemia Simple Syrup (Simple Syrup) 30 ml FEEDTUBE PRN PRN PRN Reason: Hypoglycemia Sodium Bicarbonate (Sodium Bicarbonate) 325 mg FEEDTUBE PRN PRN PRN Reason: For Clogged Feeding Tube Sodium Chloride (Sodium Chloride Flush Syringe 10 Ml) 10 ml IV BID RACHEL Last Admin: 08/17/20 23:50 Dose: 10 ml Documented by: Sodium Chloride (Sodium Chloride Flush Syringe 10 Ml) 10 ml IV PRN PRN PRN Reason: LINE FLUSH REVIEWED AND RECONCILED Review of Systems - Review of Systems ROS unobtainable: due to mental status Exam - Constitutional Vital Signs: Temp Pulse Resp BP Pulse Ox 98.8 F 84 18 128/96 97 08/18/20 04:10 08/18/20 05:44 08/18/20 04:10 08/18/20 05:44 08/18/20 09:03 General appearance: other (Awake but nonverbal and does not follow commands) - EENT Eyes: PERRL, EOM intact ENT: hearing intact, clear oral mucosa, poor dentition - Neck Neck: supple, normal ROM - Respiratory Respiratory effort: normal Respiratory: bilateral: CTA - Cardiovascular Rhythm: regular Heart Sounds: Present: S1 & S2 Extremities: no ischemia, No edema - Gastrointestinal General gastrointestinal: Present: soft, non-tender, non-distended, other (Lower midline scar) - Integumentary Integumentary: Present: clear, warm, dry - Neurologic Neurological: other (Nonverbal; follows no commands; rare spontaneous movement) - Labs CBC & Chem 7: 08/16/20 16:58 08/18/20 07:14 Lab Results: Laboratory Results - last 24 hr 08/17/20 08/17/20 08/17/20 09:25 12:19 16:44 Sodium Potassium Chloride Carbon Dioxide Anion Gap BUN Creatinine Estimated GFR BUN/Creatinine Ratio Glucose POC Glucose 118 H 135 H 156 H Calcium 08/17/20 08/18/20 08/18/20 22:29 05:09 06:22 Sodium 154 H Potassium 2.8 L* D Chloride 119.2 H Carbon Dioxide 29 Anion Gap 9 BUN 13 Creatinine 0.4 L Estimated GFR > 60 BUN/Creatinine Ratio 33 Glucose 139 H POC Glucose 163 H 154 H Calcium 8.6 08/18/20 07:14 Sodium 152 H Potassium 3.9 D Chloride 119.3 H Carbon Dioxide 25 Anion Gap 12 BUN 13 Creatinine 0.4 L Estimated GFR > 60 BUN/Creatinine Ratio 33 Glucose 156 H POC Glucose Calcium 8.4 Assessment and Plan - Patient Problems (1) Neurogenic dysphagia Current Visit: Yes Status: Acute Plan to address problem: - I left a VM for the patient's son that (depending on electrolytes in AM) we will plan EGD/PEG tomorrow. - OK to continue daily ASA, and tube feeds until midnight.
[2020-08-18] MEDS ORDERED: MAGNESIUM CITRATE 300 ML ORAL LIQD PO NR (12:00)
[2020-08-18] MEDS: POLYETHYLENE GLYCOL 3350 17 GM POWDER PO SCH (12:56)
[2020-08-18] MEDS: ASPIRIN 81 MG TAB CHEW PO SCH (12:57)
[2020-08-18] MEDS: SENNOSIDES 8.6 MG TAB PO PRN (12:57)
[2020-08-18] MEDS: amLODIPine 5 MG TAB PO SCH (12:57)
[2020-08-18] MEDS: SERTRALINE 100 MG TAB PO SCH (12:59)
[2020-08-18] MEDS: carvediloL 25 MG TAB PO SCH ×2 (12:59→21:25)
--- NOTE | 2020-08-18 13:02 | Consultation ---
History of Present Illness Consult date: 08/18/20 Chief complaint: Sacral pressure ulcer - History of present illness History of present illness: 59 yo female s/p CVA with dysphagia. She is a NH resident. PEG planned for tomorrow. Asked to see re sacral pressure ulcer. Past History Past Medical History: hypertension, seizures, stroke, other (See HPI) Past Surgical History: Other (Lower midline scar c/w hysterectomy) Social history: single. denies: smoking, alcohol abuse, prescription drug abuse Family history: hypertension Medications and Allergies Allergies Allergy/AdvReac Type Severity Reaction Status Date / Time lisinopril Allergy Unknown Verified 07/27/20 21:47 Home Medications Medication Instructions Recorded Confirmed Last Taken Type Acetaminophen [Tylenol] 2 tab PO BID 07/27/20 07/27/20 Unknown History Aspirin [Aspirin BABY CHEW TAB] 81 mg PO QDAY 07/27/20 07/27/20 Unknown History Atorvastatin Calcium [Lipitor] 80 mg PO QHS 07/27/20 07/27/20 Unknown History Baclofen 5 mg PO TID 07/27/20 07/27/20 Unknown History Hydralazine HCl 50 mg PO Q8HR 07/27/20 07/27/20 Unknown History Melatonin [Melatonin 3MG TAB 3 mg PO QDAY 07/27/20 07/27/20 Unknown History RAPDIS] NIFEdipine [Nifedipine ER] 60 mg PO QDAY 07/27/20 07/27/20 Unknown History Sennosides [Senna] 2 tab PO DAILY PRN 07/27/20 07/27/20 Unknown History Sertraline HCl [Zoloft] 2 tab PO QAM 07/27/20 07/27/20 Unknown History carvediloL [Coreg] 25 mg PO BID 07/27/20 07/27/20 Unknown History cloNIDine-TTS PATCH [Catapres-Tts 1 patch TD Q7D 07/27/20 07/27/20 Unknown History 0.3mg Patch] donepeziL [Aricept] 10 mg PO QHS 07/27/20 07/27/20 Unknown History levETIRAcetam [Keppra] 500 mg PO BID 07/27/20 07/27/20 Unknown History polyethylene glycoL 3350 [Miralax 17 gm PO QDAY 07/27/20 07/27/20 Unknown History 3350] Losartan [Cozaar] 50 mg PO QDAY #30 tablet 08/01/20 Unknown Rx Active Meds: Active Medications Acetaminophen (Tylenol) 650 mg PO Q4H PRN PRN Reason: Pain MILD(1-3)/Fever >100.5/SAWYER Acetaminophen (Tylenol) 650 mg PO BID [facility] Last Admin: 08/17/20 23:44 Dose: 650 mg Documented by: Albuterol (Proventil) 2.5 mg IH Q4HRT PRN PRN Reason: Shortness Of Breath Amlodipine Besylate (Amlodipine) 7.5 mg PO QDAY [facility] Last Admin: 08/17/20 18:11 Dose: 7.5 mg Documented by: Lipase/Protease/Amylase (Mariola Pena 10,500 Unit) 1 each FEEDTUBE PRN PRN PRN Reason: For Clogged Feeding Tube Aspirin (Baby Aspirin) 81 mg PO QDAY [facility] Last Admin: 08/17/20 18:10 Dose: 81 mg Documented by: Atorvastatin Calcium (Lipitor) 80 mg PO QHS [facility] Last Admin: 08/17/20 23:44 Dose: 80 mg Documented by: Baclofen (Lioresal) 5 mg PO Q8HR [facility] Last Admin: 08/18/20 05:43 Dose: 5 mg Documented by: Carvedilol (Coreg) 25 mg PO BID [facility] Last Admin: 08/17/20 23:43 Dose: 25 mg Documented by: Clonidine HCl (Catapres-Tts Patch) 0.3 mg TD Mo [facility] Last Admin: 08/16/20 22:30 Dose: 0.3 mg Documented by: Dextrose (D50w (25gm) Syringe) 50 ml IV Q30MIN PRN; Protocol PRN Reason: Hypoglycemia Donepezil HCl (Aricept) 10 mg PO QHS [facility] Last Admin: 08/17/20 23:52 Dose: 10 mg Documented by: Heparin Sodium (Porcine) (Heparin) 5,000 unit SUB-Q Q12HR [facility] Last Admin: 08/17/20 23:46 Dose: 5,000 unit Documented by: Hydralazine HCl (Apresoline) 50 mg PO Q8HR [facility] Last Admin: 08/18/20 05:44 Dose: 50 mg Documented by: Dextrose (D5w) 1,000 mls @ 100 mls/hr IV DIRECT [facility] Last Infusion: 08/18/20 06:17 Dose: Infused Documented by: Ceftriaxone Sodium (Rocephin/Ns 1 Gm/50 Ml) 1 gm in 50 mls @ 100 mls/hr IV QPM [facility]; Protocol Last Admin: 08/17/20 18:10 Dose: 100 mls/hr Documented by: Vancomycin HCl (Vancomycin/Ns 1 Gm/250 Ml) 1 gm in 250 mls @ 166.667 mls/hr IV Q12H [facility] Last Admin: 08/18/20 05:43 Dose: 166.667 mls/hr Documented by: Insulin Human Lispro (Humalog) 0 unit SUB-Q Q6H [facility]; Protocol Last Admin: 08/18/20 09:28 Dose: 2 unit Documented by: Levetiracetam (Keppra) 500 mg PO BID [facility] Last Admin: 08/17/20 23:54 Dose: 500 mg Documented by: Losartan Potassium (Cozaar) 50 mg PO QDAY [facility] Last Admin: 08/17/20 18:09 Dose: 50 mg Documented by: Magnesium Citrate (Citrate Of Magnesia) 300 ml PO ONCE@1200 NR Stop: 08/18/20 15:00 Melatonin (Melatonin) 5 mg PO QHS [facility] Last Admin: 08/17/20 23:42 Dose: 5 mg Documented by: Ondansetron HCl (Zofran) 4 mg IV Q8H PRN PRN Reason: Nausea And Vomiting Polyethylene Glycol (Miralax 3350) 17 gm PO QDAY [facility] Last Admin: 08/17/20 18:11 Dose: 17 gm Documented by: Senna (Senokot) 17.2 mg PO DAILY PRN PRN Reason: Laxative Effect Last Admin: 08/17/20 18:13 Dose: 17.2 mg Documented by: Sertraline HCl (Zoloft) 200 mg PO QAM [facility] Last Admin: 08/17/20 18:09 Dose: 200 mg Documented by: Simple Syrup (Simple Syrup) 15 ml FEEDTUBE PRN PRN PRN Reason: Hypoglycemia Simple Syrup (Simple Syrup) 30 ml FEEDTUBE PRN PRN PRN Reason: Hypoglycemia Sodium Bicarbonate (Sodium Bicarbonate) 325 mg FEEDTUBE PRN PRN PRN Reason: For Clogged Feeding Tube Sodium Chloride (Sodium Chloride Flush Syringe 10 Ml) 10 ml IV BID [facility] Last Admin: 08/17/20 23:50 Dose: 10 ml Documented by: Sodium Chloride (Sodium Chloride Flush Syringe 10 Ml) 10 ml IV PRN PRN PRN Reason: LINE FLUSH Sodium Hypochlorite (Dakin's Half Strength) 1 applic TP BID RACHEL Review of Systems ROS unobtainable: due to mental status Exam Vital Signs Pulse Ox 98 08/16/20 14:41 - General physical appearance Positive: well developed, well nourished, no distress - Eyes Positive: PERRL, normal occular movement - ENT Positive: normal pinna, normal nares, normal mucosa, no hearing loss, no congestion - Neck Positive: no masses, no bruits, trachea midline, no venous distension - Respiratory Positive: normal expansion, normal respiratory effort, clear to auscultation - Cardiovascular Rhythm: regular Heart Sounds: Present: S1 & S2. Absent: rub, click - Extremities Extremities: no ischemia, pulses symmetrical, No edema - Breasts Breasts: no mass, no skin changes - Abdomen Abdomen: Present: soft, bowel sounds normal. Absent: tender, distended Hernia: none - Genitourinary Female Genitourinary: deferred - Integumentary no rash, no growths, no abnormal pigmentation, other (There is a moderate sized, unstageable sacral pressure ulcer covered with moist eschar. ) - Neurologic Neurologic: alert and oriented to time, place and person, motor strength and sensation are grossly intact - Musculoskeletal normal gait, normal posture - Psychiatric Psychiatric: appropriate mood/affect, intact judgment & insight Results - Labs 08/16/20 16:58 08/18/20 07:14 Abnormal lab results 08/17/20 08/17/20 08/18/20 Range/Units 16:44 22:29 05:09 Sodium 154 H (137-145) mmol/L Potassium 2.8 L* D (3.6-5.0) mmol/L Chloride 119.2 H (98-107) mmol/L Creatinine 0.4 L (0.6-1.2) mg/dL Glucose 139 H (65-100) mg/dL POC Glucose 156 H 163 H (70-105) mg/dL 08/18/20 08/18/20 Range/Units 06:22 07:14 Sodium 152 H (137-145) mmol/L Potassium (3.6-5.0) mmol/L Chloride 119.3 H (98-107) mmol/L Creatinine 0.4 L (0.6-1.2) mg/dL Glucose 156 H (65-100) mg/dL POC Glucose 154 H (70-105) mg/dL Diabetes panel 08/18/20 08/18/20 Range/Units 05:09 07:14 Sodium 154 H 152 H (137-145) mmol/L Potassium 2.8 L* D 3.9 D (3.6-5.0) mmol/L Chloride 119.2 H 119.3 H (98-107) mmol/L Carbon Dioxide 29 25 (22-30) mmol/L BUN 13 13 (7-17) mg/dL Creatinine 0.4 L 0.4 L (0.6-1.2) mg/dL Glucose 139 H 156 H (65-100) mg/dL Calcium 8.6 8.4 (8.4-10.2) mg/dL Calcium panel 08/18/20 08/18/20 Range/Units 05:09 07:14 Calcium 8.6 8.4 (8.4-10.2) mg/dL Pituitary panel 08/18/20 08/18/20 Range/Units 05:09 07:14 Sodium 154 H 152 H (137-145) mmol/L Potassium 2.8 L* D 3.9 D (3.6-5.0) mmol/L Chloride 119.2 H 119.3 H (98-107) mmol/L Carbon Dioxide 29 25 (22-30) mmol/L BUN 13 13 (7-17) mg/dL Creatinine 0.4 L 0.4 L (0.6-1.2) mg/dL Glucose 139 H 156 H (65-100) mg/dL Calcium 8.6 8.4 (8.4-10.2) mg/dL Adrenal panel 08/18/20 08/18/20 Range/Units 05:09 07:14 Sodium 154 H 152 H (137-145) mmol/L Potassium 2.8 L* D 3.9 D (3.6-5.0) mmol/L Chloride 119.2 H 119.3 H (98-107) mmol/L Carbon Dioxide 29 25 (22-30) mmol/L BUN 13 13 (7-17) mg/dL Creatinine 0.4 L 0.4 L (0.6-1.2) mg/dL Glucose 139 H 156 H (65-100) mg/dL Calcium 8.6 8.4 (8.4-10.2) mg/dL Assessment and Plan - Patient Problems (1) Unstageable pressure ulcer of sacral region Current Visit: Yes Status: Acute Plan to address problem: 1) Off loading 2) Wound care consult 3) Will call next of kin to obtain consent for debridement.
[2020-08-18] MEDS: LOSARTAN 50 MG TAB PO SCH (13:09)
[2020-08-18] MEDS: levETIRAcetam 500 MG/5 ML ORAL LIQD PO SCH ×2 (13:09→21:32)
[2020-08-18] MEDS: ACETAMINOPHEN 325 MG TAB PO SCH ×2 (13:10→21:25)
--- NOTE | 2020-08-18 13:20 | Progress Note ---
Assessment and Plan Assessment and plan: Patient is a 59 [facility] patient with CVA complicated by dysphagia as well as aphasia, HTN, Seizure Disorder, Depression, Vascular Dementia, Cerebral Atherosclerosis, HLD presents to ED for evaluation. Patient is confused with diminished cognition and is unable to provide history at the time of my evaluation. Patient history taken from EMS staff, ED staff, as well as alf facility staff. As per staff the patient has experienced increased confusion, decreased verbalization, decreased interaction with staff, and decreased oral intake over the past 3 days. EMS run sheet is not available to me at this time but it was documented that the patient was found in distress prior to being transferred to our facility. Patient seen and evaluated in the emergency department. All lab and imaging studies reviewed. The patient was found to have urinary tract infection, metabolic encephalopathy, severe hyponatremia, as well as volume depletion secondary to free water deficit. Patient is currently Aphasic bedbound, nonambulatory with a palliative performance score of 30%. The admitting physician patient currently requires 6/6 assistance with all activities of daily living. Patient admitted to medical floor and initiated on IV antibiotic therapy as well as IV fluid resuscitation therapy. Nephrology team consulted in ED. No further history is obtainable. Patient has diminished cognition at the time of my evaluation but has a positive gag reflex and is able to protect her airway. [facility] facility staff deny report of fever, chills, palpitations, productive cough, skin rash, recent ill contacts, or known exposure to COVID-19. Advanced care planning conducted in ED. Acute metabolic encephalopathy Sacral ulcer with presumed abscess Necrotic Pressure ulcer Systemic inflammatory response syndrome without organ dysfunction, no evidence of sepsis Hyperosmolar with hypernatremia Presumed vascular dementia Prior CVA with dysphagia as well as aphasia- Per staff that I spoke with Cerebral Atherosclerosis Bilateral lower extremity ulcers Seizure disorder Hypertension Depression Hyperlipidemia Total care with activity of daily living Plan -Discussed with GI, will plan for PEG in am - Monitor sodium level as it continues to improve - ID consult, and Surgery consult for necrotic pressure ulcer I did discuss with the staff at the [facility] who states that the patient had stopped eating and they had actually discussed with the son who had recommended and agreed for a PEG tube placement. They were in the process of this prior to the patient being transferred to the hospital. Also on discussion with the nurse patient does have a sacral ulcer which was present on admission appears to have some abscess considering the foul order. We will start the patient on vancomycin. Will obtain wound culture will obtain wound care and based on their recommendation patient may benefit from debridement by surgery. Continue to monitor labs considering hypernatremia which is not improving Renal input appreciated Also prevention methodologies including every [address] Dobbhoff and start on tube feeds. Discussed and Updated patients son. He is ok with PEG placement DVT and GI prophylaxis Patient is chronically ill with acute pathology that needs immediate intervention and will require continued inpatient stay All available imaging studies have been reviewed by me CT of the head shows no current acute pathology. History Interval history: Patient seen and examined remains nonverbal, lethargic appearing does not follow any commands just gazes. Unknown baseline at this time. Hospitalist Physical - Physical exam Narrative exam: General appearance: Present: not following any commands, chronically ill- appearing - EENT Eyes: Present: PERRL ENT: clear oral mucosa, unable to assess hearing, other (Oral mucosa dry) - Neck Neck: Present: supple - Respiratory Respiratory effort: normal Respiratory: bilateral: CTA - Cardiovascular Rhythm: regular Heart Sounds: Present: S1 & S2 - Extremities Extremities: no ischemia Peripheral Pulses: within normal limits - Abdominal General gastrointestinal: Present: soft, non-tender, non-distended, normal bowel sounds Female genitourinary: Present: normal - Integumentary Integumentary: Present: Multiple ulceration including a sacral ulcer dresssing in place. Dry, clammy, decreased turgor - Musculoskeletal Musculoskeletal: generalized weakness - Psychiatric Psychiatric: no appropriate mood/affect, no intact judgment & insight, no memory intact - Neurologic Neurologic: CNII-XII intact, no gait normal - Constitutional Vitals: Temp Pulse Resp BP Pulse Ox 99.5 F 80 18 128/96 96 08/18/20 11:10 08/18/20 11:10 08/18/20 11:10 08/18/20 12:57 08/18/20 11:10 General appearance: Present: mild distress HEART Score - HEART Score Troponin: Troponin T < 0.010 ng/mL (0.00-0.029) 08/16/20 16:58 Troponin T < 0.010 ng/mL (0.00-0.029) 08/16/20 16:58 Results - Labs CBC & Chem 7: 08/16/20 16:58 08/18/20 07:14 Labs: Laboratory Last Values WBC 10.9 K/mm3 (4.5-11.0) 08/16/20 16:58 RBC 3.41 M/mm3 (3.65-5.03) L 08/16/20 16:58 Hgb 9.7 gm/dl (10.1-14.3) L 08/16/20 16:58 Hct 31.7 % (30.3-42.9) 08/16/20 16:58 MCV 93 fl (79-97) 08/16/20 16:58 MCH 28 pg (28-32) 08/16/20 16:58 MCHC 31 % (30-34) 08/16/20 16:58 RDW 18.2 % (13.2-15.2) H 08/16/20 16:58 Plt Count 285 K/mm3 (140-440) 08/16/20 16:58 Lymph % (Auto) 11.7 % (13.4-35.0) L 08/16/20 16:58 [place] % (Auto) 6.1 % (0.0-7.3) 08/16/20 16:58 Eos % (Auto) 1.0 % (0.0-4.3) 08/16/20 16:58 Baso % (Auto) 0.4 % (0.0-1.8) 08/16/20 16:58 Lymph # (Auto) 1.3 K/mm3 (1.2-5.4) 08/16/20 16:58 [place] # (Auto) 0.7 K/mm3 (0.0-0.8) 08/16/20 16:58 Eos # (Auto) 0.1 K/mm3 (0.0-0.4) 08/16/20 16:58 Baso # (Auto) 0.0 K/mm3 (0.0-0.1) 08/16/20 16:58 Seg Neutrophils % 80.8 % (40.0-70.0) H 08/16/20 16:58 Seg Neutrophils # 8.8 K/mm3 (1.8-7.7) H 08/16/20 16:58 PT 15.7 Sec. (12.2-14.9) H 08/16/20 16:58 INR 1.22 (0.87-1.13) H 08/16/20 16:58 Sodium 152 mmol/L (137-145) H 08/18/20 07:14 Potassium 3.9 mmol/L (3.6-5.0) D 08/18/20 07:14 Chloride 119.3 mmol/L (98-107) H 08/18/20 07:14 Carbon Dioxide 25 mmol/L (22-30) 08/18/20 07:14 Anion Gap 12 mmol/L 08/18/20 07:14 BUN 13 mg/dL (7-17) 08/18/20 07:14 Creatinine 0.4 mg/dL (0.6-1.2) L 08/18/20 07:14 Estimated GFR > 60 ml/min 08/18/20 07:14 BUN/Creatinine Ratio 33 % 08/18/20 07:14 Glucose 156 mg/dL (65-100) H 08/18/20 07:14 POC Glucose 154 mg/dL (70-105) H 08/18/20 06:22 Calcium 8.4 mg/dL (8.4-10.2) 08/18/20 07:14 Magnesium 2.50 mg/dL (1.7-2.3) H 08/16/20 16:58 Total Creatine Kinase 37 units/L (30-135) 08/16/20 16:58 Troponin T < 0.010 ng/mL (0.00-0.029) 08/16/20 16:58 Troponin T < 0.010 ng/mL (0.00-0.029) 08/16/20 16:58 Urine Color Yellow (Yellow) 08/16/20 Unknown Urine Turbidity Clear (Clear) 08/16/20 Unknown Urine pH 5.0 (5.0-7.0) 08/16/20 Unknown Ur Specific [place] 1.027 (1.003-1.030) 08/16/20 Unknown Urine Protein <15 mg/dl mg/dL (Negative) 08/16/20 Unknown Urine Glucose (UA) Neg mg/dL (Negative) 08/16/20 Unknown Urine Ketones Tr mg/dL (Negative) 08/16/20 Unknown Urine Blood Neg (Negative) 08/16/20 Unknown Urine Nitrite Neg (Negative) 08/16/20 Unknown Urine Bilirubin Neg (Negative) 08/16/20 Unknown Urine Urobilinogen 4.0 mg/dL (<2.0) 08/16/20 Unknown Ur Leukocyte Esterase Sm (Negative) 08/16/20 Unknown Urine WBC (Auto) 10.0 /HPF (0.0-6.0) H 08/16/20 Unknown Urine RBC (Auto) 1.0 /HPF (0.0-6.0) 08/16/20 Unknown U Epithel Cells (Auto) 1.0 /HPF (0-13.0) 08/16/20 Unknown Urine Bacteria (Auto) 3+ /HPF (Negative) 08/16/20 Unknown Urine Mucus Few /HPF 08/16/20 Unknown Microbiology: Microbiology 08/17/20 17:09 Buttock Wound Culture - Preliminary Gram Negative Simeon 08/16/20 Unknown Urine,Clean Catch Urine Culture - Final Proteus Mirabilis 08/16/20 16:58 Peripheral/Venous Blood Culture - Preliminary NO GROWTH AFTER 24 HOURS 08/16/20 17:05 Peripheral/Venous Blood Culture - Preliminary NO GROWTH AFTER 24 HOURS Sullivan/IV: Voiding Method Incontinent IV Catheter Type [Left Hand] INT / Saline Lock Active Medications - Current Medications Current Medications: Generic Name Dose Route Start Last Admin Trade Name Freq PRN Reason Stop Dose Admin Acetaminophen 650 mg 08/16/20 18:17 Tylenol PO Q4H PRN Pain MILD(1-3)/Fever >100.5/SAWYER Acetaminophen 650 mg 08/16/20 22:00 08/18/20 13:10 Tylenol PO 650 mg BID RACHEL Administration Albuterol 2.5 mg 08/16/20 18:17 Proventil IH Q4HRT PRN Shortness Of Breath Amlodipine Besylate 7.5 mg 08/17/20 18:00 08/18/20 12:57 Amlodipine PO 7.5 mg QDAY RACHEL Administration Lipase/Protease/Amylase 1 each 08/18/20 10:[address] 10,500 Unit FEEDTUBE PRN PRN For Clogged Feeding Tube Aspirin 81 mg 08/17/20 10:00 08/18/20 12:57 Baby Aspirin PO 81 mg QDAY RACHEL Administration Atorvastatin Calcium 80 mg 08/16/20 22:00 08/17/20 23:44 Lipitor PO 80 mg QHS RACHEL Administration Baclofen 5 mg 08/16/20 22:00 08/18/20 12:59 Lioresal PO 5 mg Q8HR RACHEL Administration Carvedilol 25 mg 08/16/20 22:00 08/18/20 12:59 Coreg PO 25 mg BID RACHEL Administration Clonidine HCl 0.3 mg 08/16/20 19:00 08/16/20 22:30 Catapres-Tts Patch TD 0.3 mg Mo RACHEL Administration Dextrose 50 ml 08/16/20 19:05 D50w (25gm) Syringe IV Q30MIN PRN Hypoglycemia Protocol Donepezil HCl 10 mg 08/16/20 22:00 08/17/20 23:52 Aricept PO 10 mg QHS RACHEL Administration Heparin Sodium (Porcine) 5,000 unit 08/16/20 22:00 08/18/20 10:00 Heparin SUB-Q 5,000 unit Q12HR RACHEL Administration Hydralazine HCl 50 mg 08/16/20 22:00 08/18/20 12:59 Apresoline PO 50 mg Q8HR RACHEL Administration Dextrose 1,000 mls @ 100 mls/hr 08/16/20 20:00 08/18/20 06:17 D5w IV Infused DIRECT RACHEL Infusion Ceftriaxone Sodium 1 gm in 50 mls @ 100 mls/hr 08/17/20 18:00 08/17/20 18:10 Rocephin/Ns 1 Gm/50 Ml IV 100 mls/hr QPM RACHEL Administration Protocol Vancomycin HCl 1 gm in 250 mls @ 166.667 mls/hr 08/18/20 06:00 08/18/20 05:43 Vancomycin/Ns 1 Gm/250 Ml IV 166.667 mls/hr Q12H RACHEL Administration Insulin Human Lispro 0 unit 08/16/20 20:00 08/18/20 09:28 Humalog SUB-Q 2 unit Q6H RACHEL Administration Protocol Levetiracetam 500 mg 08/17/20 22:00 08/18/20 13:09 Keppra PO 500 mg BID RACHEL Administration Losartan Potassium 50 mg 08/17/20 10:00 08/18/20 13:09 Cozaar PO 50 mg QDAY RACHEL Administration Magnesium Citrate 300 ml 08/18/20 12:00 Citrate Of Magnesia PO 08/18/20 15:00 ONCE@1200 NR Melatonin 5 mg 08/16/20 22:00 08/17/20 23:42 Melatonin PO 5 mg QHS RACHEL Administration Ondansetron HCl 4 mg 08/16/20 18:17 Zofran IV Q8H PRN Nausea And Vomiting Polyethylene Glycol 17 gm 08/17/20 10:00 08/18/20 12:56 Miralax 3350 PO 17 gm QDAY RACHEL Administration Senna 17.2 mg 08/16/20 18:42 08/18/20 12:57 Senokot PO 17.2 mg DAILY PRN Administration Laxative Effect Sertraline HCl 200 mg 08/17/20 10:00 08/18/20 12:59 Zoloft PO 200 mg QAM RACHEL Administration Simple Syrup 15 ml 08/18/20 10:51 Simple Syrup FEEDTUBE PRN PRN Hypoglycemia Simple Syrup 30 ml 08/18/20 10:51 Simple Syrup FEEDTUBE PRN PRN Hypoglycemia Sodium Bicarbonate 325 mg 08/18/20 10:51 Sodium Bicarbonate FEEDTUBE PRN PRN For Clogged Feeding Tube Sodium Chloride 10 ml 08/16/20 22:00 08/18/20 13:10 Sodium Chloride Flush Syringe 10 Ml IV 10 ml BID RACHEL Administration Sodium Chloride 10 ml 08/16/20 18:17 Sodium Chloride Flush Syringe 10 Ml IV PRN PRN LINE FLUSH Sodium Hypochlorite 1 applic 08/18/20 22:00 Dakin's Half Strength TP BID RACHEL Nutrition/Malnutrition Assess - Dietary Evaluation Nutrition/Malnutrition Findings: Nutrition Notes Start: 08/17/20 14:55 Freq: Status: Active Protocol: Document 08/18/20 10:49 (Rec: 08/18/20 10:51 [id number]) Nutrition Notes Initial or Follow up Brief Note Current Diagnosis Hypertension,Stroke Other Pertinent Diagnosis FTT, UTI, Seizure, depression, dehydration, dysphagia, hypernatremia Current Diet NPO Subjective/Other Information Per RN, wants TF started. Nutrition Intervention Nutrition Support: Osmolite 1.5 at 40 ml/hr (goal rate) Flush 220 ml q4h for hypernatremia Flush 120 ml q4h once hypernatremia is resolved Kcal 1,440 Protein (gm) 60 Fluid (mL) 732 Follow-Up By: 08/19/20 Additional Comments FU for TF start/tolerance
[2020-08-18 14:30] LABS: Blood Urea Nitrogen 12 mg/dL (7-17); Calcium 8.4 mg/dL (8.4-10.2); Hemolysis Index 4
[2020-08-18 14:33] LABS: BUN/Creatinine Ratio 40
[2020-08-18] MEDS: DEXTROSE 5% IN WATER 1,000 ML IV SCH (17:03)
[2020-08-18] MEDS: cefTRIAXone/NS 1 GM/50 ML 1 GM/50 ML BAG IV SCH (17:04)
[2020-08-18] MEDS: DONEPEZIL 10 MG TAB PO SCH (21:26)
[2020-08-18] MEDS: SODIUM HYPOCHLORITE, DAKIN'S 1/2 STRENGTH (0.25%) 473 ML TOPICAL SOLN TP SCH (21:28)
[2020-08-18] MEDS: MELATONIN 5 MG TAB PO SCH (21:32)
[2020-08-19] MEDS: INSULIN LISPRO 100 UNIT/ML VIAL 3 mL SUB-Q SCH ×4 (02:16→20:44)
[2020-08-19 05:15] LABS: Hematocrit 25.9 % (30.3-42.9); Mean Corpuscular HGB Conc 31 % (30-34); Mean Corpuscular Volume 92 fl (79-97); Platelet Count 240 K/mm3 (140-440); Red Blood Count 2.82 M/mm3 (3.65-5.03); Red Cell Distribution Width 17.8 % (13.2-15.2)
[2020-08-19 05:25] LABS: Blood Urea Nitrogen 11 mg/dL (7-17); Calcium 8.1 mg/dL (8.4-10.2); Hemolysis Index 28
[2020-08-19 05:32] LABS: BUN/Creatinine Ratio 37
[2020-08-19] MEDS: DEXTROSE 5% IN WATER 1,000 ML IV SCH ×2 (05:47→21:57)
[2020-08-19] MEDS: VANCOMYCIN/NS 1 GM/250 ML 1 GM/250 ML BAG IV SCH (05:48)
[2020-08-19] MEDS: BACLOFEN 10 MG TAB PO SCH ×3 (05:53→21:59)
[2020-08-19] MEDS: hydrALAZINE 25 MG TAB PO SCH ×3 (05:53→21:58)
--- NOTE | 2020-08-19 07:16 | Consultation ---
History of Present Illness - Reason for Consult Consult date: 08/19/20 Sacral decubitus Requesting physician: JUSTUS HILTON - History of Present Illness 59 years old female with history of hypertension hyperlipidemia,, seizures, CVA with right hemiparesis, aphasia, and dysphagia bedbound, dementia with multiple pressure ulcers, [facility], admitted on secondary to worsening confusion and altered mental status associated with poor p.o. intake for 3 days. Per [facility] staff patient has increased confusion, nonverbal, decreased interaction with staff. Patient was recently admitted due to altered mental status and severe hypernatremia and UTI. On arrival, temperature 98.6, HR 82, RR 18, O2 sat 100, BP 142/82. Initial C 10.9. Urinalysis with 10 WBCs small esterase. Urine culture 08/16/2020 growing Proteus mirabilis. Blood culture on 08/16/2020 no growth today. Sacral wound culture 08/17/2020 growing gram- negative bacilli. Review of Systems: Unable to obtain Past History Past Medical History: hypertension, seizures, stroke, other (See HPI) Past Surgical History: Other (Lower midline scar c/w hysterectomy) Social history: single. denies: smoking, alcohol abuse, prescription drug abuse Family history: hypertension Medications and Allergies Allergies Allergy/AdvReac Type Severity Reaction Status Date / Time lisinopril Allergy Unknown Verified 07/27/20 21:47 Home Medications Medication Instructions Recorded Confirmed Last Taken Type Acetaminophen [Tylenol] 2 tab PO BID 07/27/20 08/19/20 Unknown History Aspirin [Aspirin BABY CHEW TAB] 81 mg PO QDAY 07/27/20 08/19/20 Unknown History Atorvastatin Calcium [Lipitor] 80 mg PO QHS 07/27/20 08/19/20 Unknown History Baclofen 5 mg PO TID 07/27/20 08/19/20 Unknown History Hydralazine HCl 50 mg PO Q8HR 07/27/20 08/19/20 Unknown History Melatonin [Melatonin 3MG TAB 3 mg PO QDAY 07/27/20 08/19/20 Unknown History RAPDIS] NIFEdipine [Nifedipine ER] 60 mg PO QDAY 07/27/20 08/19/20 Unknown History Sennosides [Senna] 2 tab PO DAILY PRN 07/27/20 08/19/20 Unknown History Sertraline HCl [Zoloft] 2 tab PO QAM 07/27/20 08/19/20 Unknown History carvediloL [Coreg] 25 mg PO BID 07/27/20 08/19/20 Unknown History cloNIDine-TTS PATCH [Catapres-Tts 1 patch TD Q7D 07/27/20 08/19/20 Unknown History 0.3mg Patch] donepeziL [Aricept] 10 mg PO QHS 07/27/20 08/19/20 Unknown History levETIRAcetam [Keppra] 500 mg PO BID 07/27/20 08/19/20 Unknown History polyethylene glycoL 3350 [Miralax 17 gm PO QDAY 07/27/20 08/19/20 Unknown History 3350] Losartan [Cozaar] 50 mg PO QDAY #30 tablet 08/01/20 08/19/20 Unknown Rx Active Meds: Active Medications Acetaminophen (Tylenol) 650 mg PO Q4H PRN PRN Reason: Pain MILD(1-3)/Fever >100.5/SAWYER Acetaminophen (Tylenol) 650 mg PO BID [facility] Last Admin: 08/18/20 21:25 Dose: 650 mg Documented by: Albuterol (Proventil) 2.5 mg IH Q4HRT PRN PRN Reason: Shortness Of Breath Amlodipine Besylate (Amlodipine) 7.5 mg PO QDAY [facility] Last Admin: 08/18/20 12:57 Dose: 7.5 mg Documented by: Lipase/Protease/Amylase (Mariola Pena 10,500 Unit) 1 each FEEDTUBE PRN PRN PRN Reason: For Clogged Feeding Tube Aspirin (Baby Aspirin) 81 mg PO QDAY [facility] Last Admin: 08/18/20 12:57 Dose: 81 mg Documented by: Atorvastatin Calcium (Lipitor) 80 mg PO QHS [facility] Last Admin: 08/18/20 21:26 Dose: 80 mg Documented by: Baclofen (Lioresal) 5 mg PO Q8HR [facility] Last Admin: 08/19/20 05:53 Dose: Not Given Documented by: Carvedilol (Coreg) 25 mg PO BID [facility] Last Admin: 08/18/20 21:25 Dose: 25 mg Documented by: Clonidine HCl (Catapres-Tts Patch) 0.3 mg TD Mo [facility] Last Admin: 08/16/20 22:30 Dose: 0.3 mg Documented by: Dextrose (D50w (25gm) Syringe) 50 ml IV Q30MIN PRN; Protocol PRN Reason: Hypoglycemia Donepezil HCl (Aricept) 10 mg PO QHS [facility] Last Admin: 08/18/20 21:26 Dose: 10 mg Documented by: Heparin Sodium (Porcine) (Heparin) 5,000 unit SUB-Q Q12HR RACHEL Last Admin: 08/18/20 21:26 Dose: 5,000 unit Documented by: Hydralazine HCl (Apresoline) 50 mg PO Q8HR [facility] Last Admin: 08/19/20 05:53 Dose: Not Given Documented by: Dextrose (D5w) 1,000 mls @ 100 mls/hr IV DIRECT [facility] Last Admin: 08/19/20 05:47 Dose: 100 mls/hr Documented by: Ceftriaxone Sodium (Rocephin/Ns 1 Gm/50 Ml) 1 gm in 50 mls @ 100 mls/hr IV QPM [facility]; Protocol Last Admin: 08/18/20 17:04 Dose: 100 mls/hr Documented by: Vancomycin HCl (Vancomycin/Ns 1 Gm/250 Ml) 1 gm in 250 mls @ 166.667 mls/hr IV Q12H [facility] Last Admin: 08/19/20 05:48 Dose: 166.667 mls/hr Documented by: Insulin Human Lispro (Humalog) 0 unit SUB-Q Q6H RACHEL; Protocol Last Admin: 08/19/20 02:16 Dose: Not Given Documented by: Levetiracetam (Keppra) 500 mg PO BID [facility] Last Admin: 08/18/20 21:32 Dose: 500 mg Documented by: Losartan Potassium (Cozaar) 50 mg PO QDAY [facility] Last Admin: 08/18/20 13:09 Dose: 50 mg Documented by: Melatonin (Melatonin) 5 mg PO QHS [facility] Last Admin: 08/18/20 21:32 Dose: 5 mg Documented by: Ondansetron HCl (Zofran) 4 mg IV Q8H PRN PRN Reason: Nausea And Vomiting Polyethylene Glycol (Miralax 3350) 17 gm PO QDAY [facility] Last Admin: 08/18/20 12:56 Dose: 17 gm Documented by: Senna (Senokot) 17.2 mg PO DAILY PRN PRN Reason: Laxative Effect Last Admin: 11/11/20 12:57 Dose: 17.2 mg Documented by: Sertraline HCl (Zoloft) 200 mg PO QAM [facility] Last Admin: 08/18/20 12:59 Dose: 200 mg Documented by: Simple Syrup (Simple Syrup) 15 ml FEEDTUBE PRN PRN PRN Reason: Hypoglycemia Simple Syrup (Simple Syrup) 30 ml FEEDTUBE PRN PRN PRN Reason: Hypoglycemia Sodium Bicarbonate (Sodium Bicarbonate) 325 mg FEEDTUBE PRN PRN PRN Reason: For Clogged Feeding Tube Sodium Chloride (Sodium Chloride Flush Syringe 10 Ml) 10 ml IV BID [facility] Last Admin: 08/18/20 21:28 Dose: 10 ml Documented by: Sodium Chloride (Sodium Chloride Flush Syringe 10 Ml) 10 ml IV PRN PRN PRN Reason: LINE FLUSH Sodium Hypochlorite (Dakin's Half Strength) 1 applic TP BID [facility] Last Admin: 08/18/20 21:28 Dose: 1 applicator Documented by: Physical Examination - Physical Exam Narrative exam: General appearance: Alert in no acute distress nonverbal Eyes: anicteric sclerae, moist conjunctivae; no lid-lag; PERRLA HENT: Normocephalic, Atraumatic; normal external ears, nares open, oropharynx limited Neck: supple, tracheal midline, no JVD Lungs: CTA bilaterally CV: RRR no murmur Abdomen: Soft, non-tender Extremities: no edema, no cyanosis Skin: per wound care evaluation sacral decubitus 8.5 x 11 x 1.8 cm wound bed with necrotic tissue and foul-smelling purulent drainage. Psych: no agitated Neuro: Alert nonverbal - Constitutional Vitals: Vital Signs Temp Pulse Resp BP Pulse Ox 98.7 F 71 20 103/74 98 08/19/20 04:08 08/19/20 04:08 08/19/20 04:08 08/19/20 04:08 08/19/20 04:08 Temperature -Last 24 Hours Temperature 98.7 F Temperature 98.9 F Temperature 99.6 F Temperature 99.5 F Results - Labs CBC & Chem 7: 08/19/20 04:38 08/19/20 06:53 Labs: Abnormal lab results 08/18/20 08/18/20 08/18/20 Range/Units 07:14 13:33 14:16 RBC (3.65-5.03) M/mm3 Hgb (10.1-14.3) gm/dl Hct (30.3-42.9) % RDW (13.2-15.2) % Sodium 152 H 148 H (137-145) mmol/L Potassium (3.6-5.0) mmol/L Chloride 119.3 H 117.2 H (98-107) mmol/L Creatinine 0.4 L 0.3 L (0.6-1.2) mg/dL Glucose 156 H 118 H (65-100) mg/dL POC Glucose 141 H (70-105) mg/dL Calcium (8.4-10.2) mg/dL 08/18/20 08/19/20 08/19/20 Range/Units 20:06 04:38 04:38 RBC 2.82 L (3.65-5.03) M/mm3 Hgb 8.0 L (10.1-14.3) gm/dl Hct 25.9 L (30.3-42.9) % RDW 17.8 H (13.2-15.2) % Sodium 146 H (137-145) mmol/L Potassium 2.8 L* D (3.6-5.0) mmol/L Chloride 114.8 H (98-107) mmol/L Creatinine 0.3 L (0.6-1.2) mg/dL Glucose 125 H (65-100) mg/dL POC Glucose 182 H (70-105) mg/dL Calcium 8.1 L (8.4-10.2) mg/dL 08/19/20 Range/Units 05:10 RBC (3.65-5.03) M/mm3 Hgb (10.1-14.3) gm/dl Hct (30.3-42.9) % RDW (13.2-15.2) % Sodium (137-145) mmol/L Potassium (3.6-5.0) mmol/L Chloride (98-107) mmol/L Creatinine (0.6-1.2) mg/dL Glucose (65-100) mg/dL POC Glucose 126 H (70-105) mg/dL Calcium (8.4-10.2) mg/dL Assessment and Plan Cultures: Blood cultures 08/16/2020 no growth today Urine culture 08/16/2020 Proteus mirabilis Sacral wound culture 08/17/2020 gram-negative bacilli Assessment: 59 years old female with history of hypertension hyperlipidemia,, seizures, CVA with right hemiparesis, aphasia, and dysphagia bedbound, dementia with multiple pressure ulcers, [facility], admitted on secondary to worsening confusion and altered mental status associated with poor p.o. intake for 3 days: #Unstageable infected necrotic sacral decubitus: Wound culture growing gram- negative bacilli. #UTI: Mild, growing Proteus mirabilis #History of CVA with right hemiparesis, aphasia and dysphagia, bedbound #Malnutrition Recommendations: -Follow-up wound culture and urine culture -Stop ceftriaxone -Start Zosyn IV -Appreciate wound care evaluation -Agree with surgical debridement -Unfortunately no good prognosis for healing -Offloading is the mainstay of therapy -Patient is to have a PEG placement -If there is sacral bone involvement will probably do IV antibiotics for 6 weeks Will follow. Nargis Wylie MD Infectious Diseases International Student Counselor [facility] M [phone]
[2020-08-19] MEDS ORDERED: SODIUM CHLORIDE 0.9% 1000 ML 1,000 ML IV SCH (08:02)
--- NOTE | 2020-08-19 08:31 | Progress Note ---
Assessment and Plan - Patient Problems (1) Hypernatremia Current Visit: No Status: Acute Plan to address problem: continue with current free water repletion. Patient has been started on D5 half-normal saline. We will closely monitor. (2) Hypokalemia Current Visit: Yes Status: Acute Plan to address problem: Replete per protocol. (3) Urinary tract infection Current Visit: Yes Status: Acute Plan to address problem: antibiotic management per primary attending. (4) Acute metabolic encephalopathy Current Visit: No Status: Acute Plan to address problem: she has underlying history of dementia. Acute worsening may be in the setting of aforementioned urinary tract infection and hypernatremia. We will continue to monitor (5) Failure to thrive Current Visit: Yes Status: Chronic Plan to address problem: would recommend dietary consultation. Subjective Date of service: 08/19/20 Interval history: No acute changes overnight. Labs reviewed. Potassium to be replaced per protocol. Objective - Vital Signs Vital signs: Vital Signs - 12hr 08/18/20 08/18/20 08/18/20 21:19 21:25 21:27 Temperature 98.9 F Pulse Rate 67 85 85 Respiratory 18 18 Rate Blood Pressure 125/82 125/82 125/82 O2 Sat by Pulse 97 Oximetry 08/18/20 08/18/20 08/19/20 22:25 22:39 04:08 Temperature 98.7 F Pulse Rate 71 Respiratory 18 20 Rate Blood Pressure 103/74 O2 Sat by Pulse 98 98 Oximetry - General Appearance General appearance: cachectic, chronically ill, frail EENT: ATNC Neck: no JVD Respiratory: Present: Clear to Ascultation Cardiology: regular Gastrointestinal: normal Musculoskeletal: deferred - Lab 08/19/20 04:38 08/19/20 06:53 Most recent lab results Calcium 8.1 mg/dL (8.4-10.2) L 08/19/20 04:38 Magnesium 2.50 mg/dL (1.7-2.3) H 08/16/20 16:58 - Allied health notes Allied health notes reviewed: nursing Medications & Allergies - Medications Allergies/Adverse Reactions: Allergies lisinopril Allergy (Verified 07/27/20 21:47) Unknown Home Medications: Home Medications Medication Instructions Recorded Confirmed Last Taken Type Acetaminophen [Tylenol] 2 tab PO BID 07/27/20 08/19/20 Unknown History Aspirin [Aspirin BABY CHEW TAB] 81 mg PO QDAY 07/27/20 08/19/20 Unknown History Atorvastatin Calcium [Lipitor] 80 mg PO QHS 07/27/20 08/19/20 Unknown History Baclofen 5 mg PO TID 07/27/20 08/19/20 Unknown History Hydralazine HCl 50 mg PO Q8HR 07/27/20 08/19/20 Unknown History Melatonin [Melatonin 3MG TAB 3 mg PO QDAY 07/27/20 08/19/20 Unknown History RAPDIS] NIFEdipine [Nifedipine ER] 60 mg PO QDAY 07/27/20 08/19/20 Unknown History Sennosides [Senna] 2 tab PO DAILY PRN 07/27/20 08/19/20 Unknown History Sertraline HCl [Zoloft] 2 tab PO QAM 07/27/20 08/19/20 Unknown History carvediloL [Coreg] 25 mg PO BID 07/27/20 08/19/20 Unknown History cloNIDine-TTS PATCH [Catapres-Tts 1 patch TD Q7D 07/27/20 08/19/20 Unknown History 0.3mg Patch] donepeziL [Aricept] 10 mg PO QHS 07/27/20 08/19/20 Unknown History levETIRAcetam [Keppra] 500 mg PO BID 07/27/20 08/19/20 Unknown History polyethylene glycoL 3350 [Miralax 17 gm PO QDAY 07/27/20 08/19/20 Unknown History 3350] Losartan [Cozaar] 50 mg PO QDAY #30 tablet 08/01/20 08/19/20 Unknown Rx Active Medications: Generic Name Dose Route Start Last Admin Trade Name Freq PRN Reason Stop Dose Admin Acetaminophen 650 mg 08/16/20 18:17 Tylenol PO Q4H PRN Pain MILD(1-3)/Fever >100.5/SAWYER Acetaminophen 650 mg 08/16/20 22:00 08/18/20 21:25 Tylenol PO 650 mg BID RACHEL Administration Albuterol 2.5 mg 08/16/20 18:17 Proventil IH Q4HRT PRN Shortness Of Breath Amlodipine Besylate 7.5 mg 08/17/20 18:00 08/18/20 12:57 Amlodipine PO 7.5 mg QDAY RACHEL Administration Lipase/Protease/Amylase 1 each 08/18/20 10:51 Pancreveena Pena 10,500 Unit FEEDTUBE PRN PRN For Clogged Feeding Tube Aspirin 81 mg 08/17/20 10:00 08/18/20 12:57 Baby Aspirin PO 81 mg QDAY RACHEL Administration Atorvastatin Calcium 80 mg 08/16/20 22:00 08/18/20 21:26 Lipitor PO 80 mg QHS RACHEL Administration Baclofen 5 mg 08/16/20 22:00 08/19/20 05:53 Lioresal PO Not Given Q8HR RACHEL Carvedilol 25 mg 08/16/20 22:00 08/18/20 21:25 Coreg PO 25 mg BID RACHEL Administration Clonidine HCl 0.3 mg 08/16/20 19:00 08/16/20 22:30 Catapres-Tts Patch TD 0.3 mg Mo RACHEL Administration Dextrose 50 ml 08/16/20 19:05 D50w (25gm) Syringe IV Q30MIN PRN Hypoglycemia Protocol Donepezil HCl 10 mg 08/16/20 22:00 08/18/20 21:26 Aricept PO 10 mg QHS RACHEL Administration Heparin Sodium (Porcine) 5,000 unit 08/16/20 22:00 08/18/20 21:26 Heparin SUB-Q 5,000 unit Q12HR RACHEL Administration Hydralazine HCl 50 mg 08/16/20 22:00 08/19/20 05:53 Apresoline PO Not Given Q8HR RACHEL Dextrose 1,000 mls @ 100 mls/hr 08/16/20 20:00 08/19/20 05:47 D5w IV 100 mls/hr DIRECT RACHEL Administration Ceftriaxone Sodium 1 gm in 50 mls @ 100 mls/hr 08/17/20 18:00 08/18/20 17:04 Rocephin/Ns 1 Gm/50 Ml IV 100 mls/hr QPM RACHEL Administration Protocol Vancomycin HCl 1 gm in 250 mls @ 166.667 mls/hr 08/18/20 06:00 08/19/20 05:48 Vancomycin/Ns 1 Gm/250 Ml IV 166.667 mls/hr Q12H RACHEL Administration Sodium Chloride 1,000 mls @ 50 mls/hr 08/19/20 08:02 Nacl 0.9% 1000 Ml IV 08/20/20 04:01 DIRECT RACHEL Cefazolin Sodium 2 gm in 20 mls @ 80 mls/hr 08/19/20 09:00 Ancef/Sterile Water 2 Gm/20 Ml IV 08/19/20 23:00 PREOP NR Protocol Insulin Human Lispro 0 unit 08/16/20 20:00 08/19/20 02:16 Humalog SUB-Q Not Given Q6H RACHEL Protocol Levetiracetam 500 mg 08/17/20 22:00 08/18/20 21:32 Keppra PO 500 mg BID RACHEL Administration Losartan Potassium 50 mg 08/17/20 10:00 08/18/20 13:09 Cozaar PO 50 mg QDAY RACHEL Administration Melatonin 5 mg 08/16/20 22:00 08/18/20 21:32 Melatonin PO 5 mg QHS RACHEL Administration Ondansetron HCl 4 mg 08/16/20 18:17 Zofran IV Q8H PRN Nausea And Vomiting Polyethylene Glycol 17 gm 08/17/20 10:00 08/18/20 12:56 Miralax 3350 PO 17 gm QDAY RACHEL Administration Senna 17.2 mg 08/16/20 18:42 08/18/20 12:57 Senokot PO 17.2 mg DAILY PRN Administration Laxative Effect Sertraline HCl 200 mg 08/17/20 10:00 08/18/20 12:59 Zoloft PO 200 mg QAM RACHEL Administration Simple Syrup 15 ml 08/18/20 10:51 Simple Syrup FEEDTUBE PRN PRN Hypoglycemia Simple Syrup 30 ml 08/18/20 10:51 Simple Syrup FEEDTUBE PRN PRN Hypoglycemia Sodium Bicarbonate 325 mg 08/18/20 10:51 Sodium Bicarbonate FEEDTUBE PRN PRN For Clogged Feeding Tube Sodium Chloride 10 ml 08/16/20 22:00 08/18/20 21:28 Sodium Chloride Flush Syringe 10 Ml IV 10 ml BID RACHEL Administration Sodium Chloride 10 ml 08/16/20 18:17 Sodium Chloride Flush Syringe 10 Ml IV PRN PRN LINE FLUSH Sodium Hypochlorite 1 applic 08/18/20 22:00 08/18/20 21:28 Dakin's Half Strength TP 1 applicator BID RACHEL Administration
--- NOTE | 2020-08-19 08:35 | Progress Note ---
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 Patient is confused with diminished cognition and is unable to provide history at the time of my evaluation. Patient history taken from EMS staff, ED staff, as well as intermediate facility staff. As per staff the patient has experienced increased confusion, decreased verbalization, decreased interaction with staff, and decreased oral intake over the past 3 days. EMS run sheet is not available to me at this time but it was documented that the patient was found in distress prior to being transferred to our facility. Patient seen and evaluated in the emergency department. All lab and imaging studies reviewed. The patient was found to have urinary tract infection, metabolic encephalopathy, severe hyponatremia, as well as volume depletion secondary to free water deficit. Patient is currently Aphasic bedbound, nonambulatory with a palliative performance score of 30%. The admitting physician patient currently requires 6/6 assistance with all activities of daily living. Patient admitted to medical floor and initiated on IV antibiotic therapy as well as IV fluid resuscitation therapy. Nephrology team consulted in ED. No further history is obtainable. Patient has diminished cognition at the time of my evaluation but has a positive gag reflex and is able to protect her airway. [facility] facility staff deny report of fever, chills, palpitations, productive cough, skin rash, recent ill contacts, or known exposure to COVID-19. Advanced care planning conducted in ED. Acute metabolic encephalopathy Sacral ulcer with presumed abscess S/P Debridement of sacral pressure ulcer--Post debridement measurements: 9.2 X 11.2 X 3.0 cm Necrotic Pressure ulcer- Unstageable-Wound culture growing gram-negative bacilli. Persistent Hypokalemia Systemic inflammatory response syndrome without organ dysfunction, no evidence of sepsis Hyperosmolar with hypernatremia- RESOLVING Presumed vascular dementia Prior CVA with dysphagia as well as aphasia- Per staff that I spoke with Cerebral Atherosclerosis Severe Protein Calorie Malnutrition Bilateral lower extremity ulcers Seizure disorder Hypertension Depression Hyperlipidemia Total care with activity of daily living Plan -PEG held today secondary to severe Hypokalemia. Will give 40meq and repeat study 1 hr after. - Sodium has improved -Discussed with GI, will plan for PEG in am - ID input noted, abx changes noted, Offloading as much as possible is main stay therapy. Poor prognosis for wound healing - Monitor sodium level as it continues to improve - ID consult, and Surgery consult for necrotic pressure ulcer I did discuss with the staff at the long term who states that the patient had stopped eating and they had actually discussed with the son who had recommended and agreed for a PEG tube placement. They were in the process of this prior to the patient being transferred to the hospital. Also on discussion with the nurse patient does have a sacral ulcer which was present on admission appears to have some abscess considering the foul order. We will start the patient on vancomycin. Will obtain wound culture will obtain wound care and based on their recommendation patient may benefit from debridement by surgery. Renal input appreciated Also prevention methodologies including every [address] Dobbhoff and start on tube feeds. Discussed and Updated patients son. He is ok with PEG placement DVT and GI prophylaxis Patient is chronically ill with acute pathology that needs immediate in tervention and will require continued inpatient stay All available imaging studies have been reviewed by me CT of the head shows no current acute pathology. History Interval history: Patient seen and examined remains nonverbal, lethargic, Weak. Unknown baseline at this time. Hospitalist Physical - Physical exam Narrative exam: General appearance: Present: not following any commands, chronically ill- appearing - EENT Eyes: Present: PERRL ENT: clear oral mucosa, unable to assess hearing, other (Oral mucosa dry) - Neck Neck: Present: supple - Respiratory Respiratory effort: normal Respiratory: bilateral: CTA - Cardiovascular Rhythm: regular Heart Sounds: Present: S1 & S2 - Extremities Extremities: no ischemia Peripheral Pulses: within normal limits - Abdominal General gastrointestinal: Present: soft, non-tender, non-distended, normal bowel sounds Female genitourinary: Present: normal - Integumentary Integumentary: Present: Multiple ulceration including a sacral ulcer dresssing in place. Dry, clammy, decreased turgor - Musculoskeletal Musculoskeletal: generalized weakness - Psychiatric Psychiatric: no appropriate mood/affect, no intact judgment & insight, no memory intact - Neurologic Neurologic: CNII-XII intact, no gait normal - Constitutional Vitals: Temp Pulse Resp BP Pulse Ox 98.7 F 71 20 103/74 98 08/19/20 04:08 08/19/20 04:08 08/19/20 04:08 08/19/20 04:08 08/19/20 04:08 General appearance: Present: mild distress HEART Score - HEART Score Troponin: Troponin T < 0.010 ng/mL (0.00-0.029) 08/16/20 16:58 Troponin T < 0.010 ng/mL (0.00-0.029) 08/16/20 16:58 Results - Labs CBC & Chem 7: 08/19/20 04:38 08/19/20 06:53 Labs: Laboratory Last Values WBC 10.6 K/mm3 (4.5-11.0) 08/19/20 04:38 RBC 2.82 M/mm3 (3.65-5.03) L 08/19/20 04:38 Hgb 8.0 gm/dl (10.1-14.3) L 08/19/20 04:38 Hct 25.9 % (30.3-42.9) L 08/19/20 04:38 MCV 92 fl (79-97) 08/19/20 04:38 MCH 29 pg (28-32) 08/19/20 04:38 MCHC 31 % (30-34) 08/19/20 04:38 RDW 17.8 % (13.2-15.2) H 08/19/20 04:38 Plt Count 240 K/mm3 (140-440) 08/19/20 04:38 Lymph % (Auto) 11.7 % (13.4-35.0) L 08/16/20 16:58 Mcmullen % (Auto) 6.1 % (0.0-7.3) 08/16/20 16:58 Eos % (Auto) 1.0 % (0.0-4.3) 08/16/20 16:58 Baso % (Auto) 0.4 % (0.0-1.8) 08/16/20 16:58 Lymph # (Auto) 1.3 K/mm3 (1.2-5.4) 08/16/20 16:58 Mcmullen # (Auto) 0.7 K/mm3 (0.0-0.8) 08/16/20 16:58 Eos # (Auto) 0.1 K/mm3 (0.0-0.4) 08/16/20 16:58 Baso # (Auto) 0.0 K/mm3 (0.0-0.1) 08/16/20 16:58 Seg Neutrophils % 80.8 % (40.0-70.0) H 08/16/20 16:58 Seg Neutrophils # 8.8 K/mm3 (1.8-7.7) H 08/16/20 16:58 PT 15.7 Sec. (12.2-14.9) H 08/16/20 16:58 INR 1.22 (0.87-1.13) H 08/16/20 16:58 Sodium 146 mmol/L (137-145) H 08/19/20 04:38 Potassium 2.9 mmol/L (3.6-5.0) L* 08/19/20 06:53 Chloride 114.8 mmol/L (98-107) H 08/19/20 04:38 Carbon Dioxide 24 mmol/L (22-30) 08/19/20 04:38 Anion Gap 10 mmol/L 08/19/20 04:38 BUN 11 mg/dL (7-17) 08/19/20 04:38 Creatinine 0.3 mg/dL (0.6-1.2) L 08/19/20 04:38 Estimated GFR > 60 ml/min 08/19/20 04:38 BUN/Creatinine Ratio 37 % 08/19/20 04:38 Glucose 125 mg/dL (65-100) H 08/19/20 04:38 POC Glucose 126 mg/dL (70-105) H 08/19/20 05:10 Calcium 8.1 mg/dL (8.4-10.2) L 08/19/20 04:38 Magnesium 2.50 mg/dL (1.7-2.3) H 08/16/20 16:58 Total Creatine Kinase 37 units/L (30-135) 08/16/20 16:58 Troponin T < 0.010 ng/mL (0.00-0.029) 08/16/20 16:58 Troponin T < 0.010 ng/mL (0.00-0.029) 08/16/20 16:58 Urine Color Yellow (Yellow) 08/16/20 Unknown Urine Turbidity Clear (Clear) 08/16/20 Unknown Urine pH 5.0 (5.0-7.0) 08/16/20 Unknown Ur Specific Amma 1.027 (1.003-1.030) 08/16/20 Unknown Urine Protein <15 mg/dl mg/dL (Negative) 08/16/20 Unknown Urine Glucose (UA) Neg mg/dL (Negative) 08/16/20 Unknown Urine Ketones Tr mg/dL (Negative) 08/16/20 Unknown Urine Blood Neg (Negative) 08/16/20 Unknown Urine Nitrite Neg (Negative) 08/16/20 Unknown Urine Bilirubin Neg (Negative) 08/16/20 Unknown Urine Urobilinogen 4.0 mg/dL (<2.0) 08/16/20 Unknown Ur Leukocyte Esterase Sm (Negative) 08/16/20 Unknown Urine WBC (Auto) 10.0 /HPF (0.0-6.0) H 08/16/20 Unknown Urine RBC (Auto) 1.0 /HPF (0.0-6.0) 08/16/20 Unknown U Epithel Cells (Auto) 1.0 /HPF (0-13.0) 08/16/20 Unknown Urine Bacteria (Auto) 3+ /HPF (Negative) 08/16/20 Unknown Urine Mucus Few /HPF 08/16/20 Unknown Microbiology: Microbiology 08/16/20 16:58 Peripheral/Venous Blood Culture - Preliminary NO GROWTH AFTER 48 HOURS 08/16/20 17:05 Peripheral/Venous Blood Culture - Preliminary NO GROWTH AFTER 48 HOURS 08/17/20 17:09 Buttock Wound Culture - Preliminary Gram Negative Simeon 08/16/20 Unknown Urine,Clean Catch Urine Culture - Final Proteus Mirabilis Sullivan/IV: Voiding Method Incontinent IV Catheter Type [Left Hand] INT / Saline Lock Active Medications - Current Medications Current Medications: Generic Name Dose Route Start Last Admin Trade Name Freq PRN Reason Stop Dose Admin Acetaminophen 650 mg 08/16/20 18:17 Tylenol PO Q4H PRN Pain MILD(1-3)/Fever >100.5/SAWYER Acetaminophen 650 mg 08/16/20 22:00 08/18/20 21:25 Tylenol PO 650 mg BID RACHEL Administration Albuterol 2.5 mg 08/16/20 18:17 Proventil IH Q4HRT PRN Shortness Of Breath Amlodipine Besylate 7.5 mg 08/17/20 18:00 08/18/20 12:57 Amlodipine PO 7.5 mg QDAY RACHEL Administration Lipase/Protease/Amylase 1 each 08/18/20 10:[address] 10,500 Unit FEEDTUBE PRN PRN For Clogged Feeding Tube Aspirin 81 mg 08/17/20 10:00 08/18/20 12:57 Baby Aspirin PO 81 mg QDAY RACHEL Administration Atorvastatin Calcium 80 mg 08/16/20 22:00 08/18/20 21:26 Lipitor PO 80 mg QHS RACHEL Administration Baclofen 5 mg 08/16/20 22:00 08/19/20 05:53 Lioresal PO Not Given Q8HR RACHEL Carvedilol 25 mg 08/16/20 22:00 08/18/20 21:25 Coreg PO 25 mg BID RACHEL Administration Clonidine HCl 0.3 mg 08/16/20 19:00 08/16/20 22:30 Catapres-Tts Patch TD 0.3 mg Mo RACHEL Administration Dextrose 50 ml 08/16/20 19:05 D50w (25gm) Syringe IV Q30MIN PRN Hypoglycemia Protocol Donepezil HCl 10 mg 08/16/20 22:00 08/18/20 21:26 Aricept PO 10 mg QHS RACHEL Administration Heparin Sodium (Porcine) 5,000 unit 08/16/20 22:00 08/18/20 21:26 Heparin SUB-Q 5,000 unit Q12HR RACHEL Administration Hydralazine HCl 50 mg 08/16/20 22:00 08/19/20 05:53 Apresoline PO Not Given Q8HR RACHEL Dextrose 1,000 mls @ 100 mls/hr 08/16/20 20:00 08/19/20 05:47 D5w IV 100 mls/hr DIRECT RACHEL Administration Ceftriaxone Sodium 1 gm in 50 mls @ 100 mls/hr 08/17/20 18:00 08/18/20 17:04 Rocephin/Ns 1 Gm/50 Ml IV 100 mls/hr QPM RACHEL Administration Protocol Vancomycin HCl 1 gm in 250 mls @ 166.667 mls/hr 08/18/20 06:00 08/19/20 05:48 Vancomycin/Ns 1 Gm/250 Ml IV 166.667 mls/hr Q12H RACHEL Administration Sodium Chloride 1,000 mls @ 50 mls/hr 08/19/20 08:02 Nacl 0.9% 1000 Ml IV 08/20/20 04:01 DIRECT RACHEL Cefazolin Sodium 2 gm in 20 mls @ 80 mls/hr 08/19/20 09:00 Ancef/Sterile Water 2 Gm/20 Ml IV 08/19/20 23:00 PREOP NR Protocol Potassium Chloride 10 meq in 100 mls @ 100 mls/hr 08/19/20 09:00 Kcl 10meq/100ml IV 08/19/20 12:59 Q1H RACHEL Insulin Human Lispro 0 unit 08/16/20 20:00 08/19/20 02:16 Humalog SUB-Q Not Given Q6H [facility] Protocol Levetiracetam 500 mg 08/17/20 22:00 08/18/20 21:32 Keppra PO 500 mg BID RACHEL Administration Losartan Potassium 50 mg 08/17/20 10:00 08/18/20 13:09 Cozaar PO 50 mg QDAY RACHEL Administration Melatonin 5 mg 08/16/20 22:00 08/18/20 21:32 Melatonin PO 5 mg QHS RACHEL Administration Ondansetron HCl 4 mg 08/16/20 18:17 Zofran IV Q8H PRN Nausea And Vomiting Polyethylene Glycol 17 gm 08/17/20 10:00 08/18/20 12:56 Miralax 3350 PO 17 gm QDAY RACHEL Administration Senna 17.2 mg 08/16/20 18:42 08/18/20 12:57 Senokot PO 17.2 mg DAILY PRN Administration Laxative Effect Sertraline HCl 200 mg 08/17/20 10:00 08/18/20 12:59 Zoloft PO 200 mg QAM RACHEL Administration Simple Syrup 15 ml 08/18/20 10:51 Simple Syrup FEEDTUBE PRN PRN Hypoglycemia Simple Syrup 30 ml 08/18/20 10:51 Simple Syrup FEEDTUBE PRN PRN Hypoglycemia Sodium Bicarbonate 325 mg 08/18/20 10:51 Sodium Bicarbonate FEEDTUBE PRN PRN For Clogged Feeding Tube Sodium Chloride 10 ml 08/16/20 22:00 08/18/20 21:28 Sodium Chloride Flush Syringe 10 Ml IV 10 ml BID RACHEL Administration Sodium Chloride 10 ml 08/16/20 18:17 Sodium Chloride Flush Syringe 10 Ml IV PRN PRN LINE FLUSH Sodium Hypochlorite 1 applic 08/18/20 22:00 08/18/20 21:28 Dakin's Half Strength TP 1 applicator BID RACHEL Administration Nutrition/Malnutrition Assess - Dietary Evaluation Nutrition/Malnutrition Findings: Nutrition Notes Start: 08/17/20 14:55 Freq: Status: Active Protocol: Document 08/18/20 14:16 EN (Rec: 08/18/20 14:24 EN [email or web address]) Co-Sign 08/18/20 14:16 LM Nutrition Notes Initial or Follow up Brief Note Current Diagnosis Decubitus(Pressure Ulcer), Hypertension,Stroke Other Pertinent Diagnosis FTT, UTI, Seizure, depression, dehydration, dysphagia, hypernatremia, Current Diet Osmolite 1.5 at 40 ml/hr (goal rate) Subjective/Other Information Consult for MST, difficulty chewing, low BMI screen. Pt with multiple pressure ulcers located on her heels and sacrum. Manish score 8. TF ordered to start today at lunch #2 Nutrition Diagnosis Increased nutrient needs ( specify in comment below) Comments: Protein Etiology wound healing As Evidenced by Signs and Symptoms Multiple pressure ulcers Calculation Used for Recommendations Mahendra Adam Additional Notes Protein: 1.25-1.5 g/kg (63-75g ) Fluid: 1 ml/kcal Nutrition Intervention Nutrition Support: Osmolite 1.5 at 40 ml/hr (goal rate) Flush 220 ml q4h for hypernatremia Flush 120 ml q4h once hypernatremia is resolved Kcal 1,440 Protein (gm) 60 Fluid (mL) 732 Goal #1 Meet 75% of energy and protein needs with TF Anticipated Discharge Needs: unable to determine at this time Follow-Up By: 08/20/20 Additional Comments FU for TF start/tolerance
[2020-08-19] MEDS ORDERED: ceFAZolin/Water 2 GM/20 ML 2 GM/20 ML SYRINGE IV NR (09:00)
[2020-08-19] MEDS: POTASSIUM CHLORIDE 10 MEQ 10 MEQ/100 ML BAG IV SCH ×4 (09:35→13:57)
[2020-08-19] MEDS: SERTRALINE 100 MG TAB PO SCH (10:49)
[2020-08-19] MEDS: ACETAMINOPHEN 325 MG TAB PO SCH ×2 (10:49→22:01)
[2020-08-19] MEDS: amLODIPine 5 MG TAB PO SCH (11:11)
[2020-08-19] MEDS: ASPIRIN 81 MG TAB CHEW PO SCH (11:11)
[2020-08-19] MEDS: HEPARIN 5,000 UNIT/1 ML VIAL SUB-Q SCH ×2 (11:12→22:03)
[2020-08-19] MEDS: levETIRAcetam 500 MG/5 ML ORAL LIQD PO SCH ×2 (11:12→21:59)
[2020-08-19] MEDS: LOSARTAN 50 MG TAB PO SCH (11:12)
[2020-08-19] MEDS: carvediloL 25 MG TAB PO SCH ×2 (11:12→21:59)
[2020-08-19] MEDS: SODIUM HYPOCHLORITE, DAKIN'S 1/2 STRENGTH (0.25%) 473 ML TOPICAL SOLN TP SCH ×2 (11:13→22:02)
[2020-08-19] MEDS: POLYETHYLENE GLYCOL 3350 17 GM POWDER PO SCH (11:14)
--- NOTE | 2020-08-19 12:32 | Gastroenterology Progress Note ---
Assessment and Plan - Patient Problems (1) Neurogenic dysphagia Current Visit: Yes Status: Acute Plan to address problem: - Due to low K, will plan EGD/PEG tomorrow. - OK to resume tube feeds today. - Spoke to son, and consent obtained for EGD/PEG in the AM. Subjective Date of service: 08/19/20 Principal diagnosis: Neurogenic Dysphagia Interval history: The patient has tolerated tube feeds overnight without N/V/abdominal pain (apparent). Objective - Constitutional Vitals: Temp Pulse Resp BP Pulse Ox 98.1 F 59 L 20 136/89 99 08/19/20 12:16 08/19/20 12:16 08/19/20 12:16 08/19/20 12:16 08/19/20 12:16 General appearance: no acute distress - Respiratory Respiratory effort: normal Respiratory: bilateral: CTA - Cardiovascular Rhythm: regular Heart Sounds: Present: S1 & S2 - Gastrointestinal General gastrointestinal: Present: soft, non-tender, non-distended - Labs CBC & Chem 7: 08/19/20 04:38 08/19/20 06:53 Labs: Laboratory Results - last 24 hr 08/18/20 08/18/20 08/18/20 13:33 14:16 20:06 WBC RBC Hgb Hct MCV MCH MCHC RDW Plt Count Sodium 148 H Potassium 4.7 D Chloride 117.2 H Carbon Dioxide 27 Anion Gap 9 BUN 12 Creatinine 0.3 L Estimated GFR > 60 BUN/Creatinine Ratio 40 Glucose 118 H POC Glucose 141 H 182 H Calcium 8.4 08/19/20 08/19/20 08/19/20 04:38 04:38 05:10 WBC 10.6 RBC 2.82 L Hgb 8.0 L Hct 25.9 L MCV 92 MCH 29 MCHC 31 RDW 17.8 H Plt Count 240 Sodium 146 H Potassium 2.8 L* D Chloride 114.8 H Carbon Dioxide 24 Anion Gap 10 BUN 11 Creatinine 0.3 L Estimated GFR > 60 BUN/Creatinine Ratio 37 Glucose 125 H POC Glucose 126 H Calcium 8.1 L 08/19/20 08/19/20 06:53 10:03 WBC RBC Hgb Hct MCV MCH MCHC RDW Plt Count Sodium Potassium 2.9 L* Chloride Carbon Dioxide Anion Gap BUN Creatinine Estimated GFR BUN/Creatinine Ratio Glucose POC Glucose 117 H Calcium
--- NOTE | 2020-08-19 13:30 | Procedure Note ---
Date of procedure: 08/19/20 Pre-op diagnosis: Stage 4 sacral pressure ulcer Post-op diagnosis: same Procedure: Debridement of sacral pressure ulcer Description of procedure: Pt was placed right side down. Sacral area was prepped and draped. Necrotic skin, SQ tissue, muscle and bone were surgically, excisionally debrided with forceps and scissors. Bleeding was minimal and was controlled with silver nitrate. The wound was then packed open by the Wound Care nurse. Pt tolerated the procedure well. Post debridement measurements: 9.2 X 11.2 X 3.0 cm Anesthesia: none Surgeon: ELOISE REDMAN Estimated blood loss: minimal Pathology: none Specimen disposition: discarded Condition: stable Disposition: no change
[2020-08-19] MEDS: LANSOPRAZOLE 30 MG SOLUTAB FEEDTUBE SCH (16:34)
[2020-08-19] MEDS: PIPERACIL/TAZOBACTA 4.5/NS 100 4.5 GM/100 ML VIAL IV SCH ×2 (16:52→21:57)
[2020-08-19] MEDS: DONEPEZIL 10 MG TAB PO SCH (21:58)
[2020-08-19] MEDS: MELATONIN 5 MG TAB PO SCH (21:59)
[2020-08-19] MEDS: levETIRAcetam 500 MG in DEXTROSE 5% IN WATER 100 ML IV SCH (22:11)
[2020-08-20] MEDS: INSULIN LISPRO 100 UNIT/ML VIAL 3 mL SUB-Q SCH ×4 (02:38→23:00)
[2020-08-20] MEDS: hydrALAZINE 25 MG TAB PO SCH ×3 (05:46→21:43)
[2020-08-20] MEDS: PIPERACIL/TAZOBACTA 4.5/NS 100 4.5 GM/100 ML VIAL IV SCH ×2 (05:46→21:41)
[2020-08-20] MEDS: BACLOFEN 10 MG TAB PO SCH ×3 (05:46→21:44)
--- NOTE | 2020-08-20 06:20 | Progress Note ---
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 Patient is confused with diminished cognition and is unable to provide history at the time of my evaluation. Patient history taken from EMS staff, ED staff, as well as [facility] facility staff. As per staff the patient has experienced increased confusion, decreased verbalization, decreased interaction with staff, and decreased oral intake over the past 3 days. EMS run sheet is not available to me at this time but it was documented that the patient was found in distress prior to being transferred to our facility. Patient seen and evaluated in the emergency department. All lab and imaging studies reviewed. The patient was found to have urinary tract infection, metabolic encephalopathy, severe hyponatremia, as well as volume depletion secondary to free water deficit. Patient is currently Aphasic bedbound, nonambulatory with a palliative performance score of 30%. The admitting physician patient currently requires 6/6 assistance with all activities of daily living. Patient admitted to medical floor and initiated on IV antibiotic therapy as well as IV fluid resuscitation therapy. Nephrology team consulted in ED. No further history is obtainable. Patient has diminished cognition at the time of my evaluation but has a positive gag reflex and is able to protect her airway. [facility] staff deny report of fever, chills, palpitations, productive cough, skin rash, recent ill contacts, or known exposure to COVID-19. Advanced care planning conducted in ED. Acute metabolic encephalopathy Sacral ulcer with presumed abscess S/P Debridement of sacral pressure ulcer--Post debridement measurements: 9.2 X 11.2 X 3.0 cm Necrotic Pressure ulcer- Unstageable-Wound culture growing gram-negative bacilli. Persistent Hypokalemia Systemic inflammatory response syndrome without organ dysfunction, no evidence of sepsis Hyperosmolar with hypernatremia- RESOLVING Presumed vascular dementia Prior CVA with dysphagia as well as aphasia- Per staff that I spoke with Cerebral Atherosclerosis Severe Protein Calorie Malnutrition Bilateral lower extremity ulcers Seizure disorder Hypertension Depression Hyperlipidemia Total care with activity of daily living Plan 08/20: Continue zosyn per ID, cultures WOUND Growing Proteous Mirabilus. Beta Hemolytic strep FOLLOW ID/SENSITIVITY. Will give additional Potassium today. Patient is for PEG Placement today -PEG held today secondary to severe Hypokalemia. Give extra K - Sodium has improved -Discussed with GI, PEG was done. - ID input noted, abx changes noted, Offloading as much as possible is main stay therapy. Poor prognosis for wound healing - Monitor sodium level as it continues to improve - ID consult, and Surgery consult for necrotic pressure ulcer I did discuss with [facility] who states that the patient had stopped eating and they had actually discussed with the son who had recommended and agreed for a PEG tube placement. They were in the process of this prior to the patient being transferred to the hospital. Also on discussion with the nurse patient does have a sacral ulcer which was present on admission appears to have some abscess considering the foul order. We will start the patient on vancomycin. Will obtain wound culture will obtain wound care and based on their recommendation patient may benefit from debridement by surgery. Renal input appreciated Also prevention methodologies including every [address] Dobbhoff and start on tube feeds. Discussed and Updated patients son. He is ok with PEG placement DVT and GI prophylaxis Patient is chronically ill with acute pathology that needs immediate intervention and will require continued inpatient stay All available imaging studies have been reviewed by me CT of the head shows no current acute pathology. History Interval history: Patient seen and examined remains nonverbal, she was for PEG tube today Hospitalist Physical - Physical exam Narrative exam: General appearance: Present: not following any commands, chronically ill- appearing - EENT Eyes: Present: PERRL ENT: clear oral mucosa, unable to assess hearing, other (Oral mucosa dry) - Neck Neck: Present: supple - Respiratory Respiratory effort: normal Respiratory: bilateral: CTA - Cardiovascular Rhythm: regular Heart Sounds: Present: S1 & S2 - Extremities Extremities: no ischemia Peripheral Pulses: within normal limits - Abdominal General gastrointestinal: Present: soft, non-tender, non-distended, normal bowel sounds, PEG Placed. Female genitourinary: Present: normal - Integumentary Integumentary: Present: Multiple ulceration including a sacral ulcer dressing in place. Dry, clammy, decreased turgor - Musculoskeletal Musculoskeletal: generalized weakness - Psychiatric Psychiatric: no appropriate mood/affect, no intact judgment & insight, no memory intact - Neurologic Neurologic: CNII-XII intact, no gait normal - Constitutional Vitals: Temp Pulse Resp BP Pulse Ox 98.4 F 63 20 137/85 99 08/19/20 22:56 08/19/20 22:56 08/19/20 22:56 08/19/20 22:56 08/19/20 22:56 General appearance: Present: mild distress HEART Score - HEART Score Troponin: Troponin T < 0.010 ng/mL (0.00-0.029) 08/16/20 16:58 Troponin T < 0.010 ng/mL (0.00-0.029) 08/16/20 16:58 Results - Labs CBC & Chem 7: 08/19/20 04:38 08/20/20 05:12 Labs: Laboratory Last Values WBC 10.6 K/mm3 (4.5-11.0) 08/19/20 04:38 RBC 2.82 M/mm3 (3.65-5.03) L 08/19/20 04:38 Hgb 8.0 gm/dl (10.1-14.3) L 08/19/20 04:38 Hct 25.9 % (30.3-42.9) L 08/19/20 04:38 MCV 92 fl (79-97) 08/19/20 04:38 MCH 29 pg (28-32) 08/19/20 04:38 MCHC 31 % (30-34) 08/19/20 04:38 RDW 17.8 % (13.2-15.2) H 08/19/20 04:38 Plt Count 240 K/mm3 (140-440) 08/19/20 04:38 Lymph % (Auto) 11.7 % (13.4-35.0) L 08/16/20 16:58 [place] % (Auto) 6.1 % (0.0-7.3) 08/16/20 16:58 Eos % (Auto) 1.0 % (0.0-4.3) 08/16/20 16:58 Baso % (Auto) 0.4 % (0.0-1.8) 08/16/20 16:58 Lymph # (Auto) 1.3 K/mm3 (1.2-5.4) 08/16/20 16:58 [place] # (Auto) 0.7 K/mm3 (0.0-0.8) 08/16/20 16:58 Eos # (Auto) 0.1 K/mm3 (0.0-0.4) 08/16/20 16:58 Baso # (Auto) 0.0 K/mm3 (0.0-0.1) 08/16/20 16:58 Seg Neutrophils % 80.8 % (40.0-70.0) H 08/16/20 16:58 Seg Neutrophils # 8.8 K/mm3 (1.8-7.7) H 08/16/20 16:58 PT 15.7 Sec. (12.2-14.9) H 08/16/20 16:58 INR 1.22 (0.87-1.13) H 08/16/20 16:58 Sodium 146 mmol/L (137-145) H 08/19/20 04:38 Potassium 3.4 mmol/L (3.6-5.0) L 08/19/20 17:45 Chloride 114.8 mmol/L (98-107) H 08/19/20 04:38 Carbon Dioxide 24 mmol/L (22-30) 08/19/20 04:38 Anion Gap 10 mmol/L 08/19/20 04:38 BUN 11 mg/dL (7-17) 08/19/20 04:38 Creatinine 0.3 mg/dL (0.6-1.2) L 08/19/20 04:38 Estimated GFR > 60 ml/min 08/19/20 04:38 BUN/Creatinine Ratio 37 % 08/19/20 04:38 Glucose 125 mg/dL (65-100) H 08/19/20 04:38 POC Glucose 109 mg/dL (70-105) H 08/19/20 22:04 Calcium 8.1 mg/dL (8.4-10.2) L 08/19/20 04:38 Magnesium 2.50 mg/dL (1.7-2.3) H 08/16/20 16:58 Total Creatine Kinase 37 units/L (30-135) 08/16/20 16:58 Troponin T < 0.010 ng/mL (0.00-0.029) 08/16/20 16:58 Troponin T < 0.010 ng/mL (0.00-0.029) 08/16/20 16:58 Urine Color Yellow (Yellow) 08/16/20 Unknown Urine Turbidity Clear (Clear) 08/16/20 Unknown Urine pH 5.0 (5.0-7.0) 08/16/20 Unknown Ur Specific [place] 1.027 (1.003-1.030) 08/16/20 Unknown Urine Protein <15 mg/dl mg/dL (Negative) 08/16/20 Unknown Urine Glucose (UA) Neg mg/dL (Negative) 08/16/20 Unknown Urine Ketones Tr mg/dL (Negative) 08/16/20 Unknown Urine Blood Neg (Negative) 08/16/20 Unknown Urine Nitrite Neg (Negative) 08/16/20 Unknown Urine Bilirubin Neg (Negative) 08/16/20 Unknown Urine Urobilinogen 4.0 mg/dL (<2.0) 08/16/20 Unknown Ur Leukocyte Esterase Sm (Negative) 08/16/20 Unknown Urine WBC (Auto) 10.0 /HPF (0.0-6.0) H 08/16/20 Unknown Urine RBC (Auto) 1.0 /HPF (0.0-6.0) 08/16/20 Unknown U Epithel Cells (Auto) 1.0 /HPF (0-13.0) 08/16/20 Unknown Urine Bacteria (Auto) 3+ /HPF (Negative) 08/16/20 Unknown Urine Mucus Few /HPF 08/16/20 Unknown Microbiology: Microbiology 08/16/20 16:58 Peripheral/Venous Blood Culture - Preliminary NO GROWTH AFTER 72 HOURS 08/16/20 17:05 Peripheral/Venous Blood Culture - Preliminary NO GROWTH AFTER 72 HOURS Sullivan/IV: Voiding Method Incontinent IV Catheter Type [Left Hand] INT / Saline Lock Active Medications - Current Medications Current Medications: Generic Name Dose Route Start Last Admin Trade Name Freq PRN Reason Stop Dose Admin Acetaminophen 650 mg 08/16/20 18:17 Tylenol PO Q4H PRN Pain MILD(1-3)/Fever >100.5/SAWYER Acetaminophen 650 mg 08/16/20 22:00 08/19/20 22:01 Tylenol PO Not Given BID RACHEL Albuterol 2.5 mg 08/16/20 18:17 Proventil IH Q4HRT PRN Shortness Of Breath Amlodipine Besylate 7.5 mg 08/17/20 18:00 08/19/20 11:11 Amlodipine PO Not Given QDAY RACHEL Lipase/Protease/Amylase 1 each 08/18/20 10:[address] 10,500 Unit FEEDTUBE PRN PRN For Clogged Feeding Tube Aspirin 81 mg 08/17/20 10:00 08/19/20 11:11 Baby Aspirin PO Not Given QDAY RACHEL Atorvastatin Calcium 80 mg 08/16/20 22:00 08/19/20 21:59 Lipitor PO Not Given QHS RACHEL Baclofen 5 mg 08/16/20 22:00 08/20/20 05:46 Lioresal PO Not Given Q8HR RACHEL Carvedilol 25 mg 08/16/20 22:00 08/19/20 21:59 Coreg PO Not Given BID RACHLE Clonidine HCl 0.3 mg 08/16/20 19:00 08/16/20 22:30 Catapres-Tts Patch TD 0.3 mg Mo RACHEL Administration Dextrose 50 ml 08/16/20 19:05 D50w (25gm) Syringe IV Q30MIN PRN Hypoglycemia Protocol Donepezil HCl 10 mg 08/16/20 22:00 08/19/20 21:58 Aricept PO Not Given QHS [facility] Heparin Sodium (Porcine) 5,000 unit 08/16/20 22:00 08/19/20 22:03 Heparin SUB-Q 5,000 unit Q12HR RACHEL Administration Hydralazine HCl 50 mg 08/16/20 22:00 08/20/20 05:46 Apresoline PO Not Given Q8HR [facility] Dextrose 1,000 mls @ 100 mls/hr 08/16/20 20:00 08/19/20 21:57 D5w IV 100 mls/hr DIRECT RACHEL Administration Piperacillin Sod/Tazobactam Sod 4.5 gm in 100 mls @ 200 mls/hr 08/19/20 15:00 08/20/20 05:46 Zosyn/Ns 4.5gm/100ml IV 200 mls/hr Q8HR RACHEL Administration Levetiracetam 500 mg/ Dextrose 105 mls @ 400 mls/hr 08/19/20 22:00 08/19/20 22:11 IV 400 mls/hr Q12HR RACHEL Administration Potassium Chloride 10 meq in 100 mls @ 100 mls/hr 08/20/20 07:00 Kcl 10meq/100ml IV 08/20/20 10:59 Q1H [facility] Insulin Human Lispro 0 unit 08/16/20 20:00 08/20/20 02:38 Humalog SUB-Q Not Given Q6H [facility] Protocol Lansoprazole 30 mg 08/19/20 13:00 08/19/20 16:34 Prevacid Solutab FEEDTUBE 30 mg QDAY RACHEL Administration Losartan Potassium 50 mg 08/17/20 10:00 08/19/20 11:12 Cozaar PO Not Given QDAY RACHEL Melatonin 5 mg 08/16/20 22:00 08/19/20 21:59 Melatonin PO Not Given QHS RACHEL Ondansetron HCl 4 mg 08/16/20 18:17 Zofran IV Q8H PRN Nausea And Vomiting Polyethylene Glycol 17 gm 08/17/20 10:00 08/19/20 11:14 Miralax 3350 PO Not Given QDAY [facility] Senna 17.2 mg 08/16/20 18:42 08/18/20 12:57 Senokot PO 17.2 mg DAILY PRN Administration Laxative Effect Sertraline HCl 200 mg 08/17/20 10:00 08/19/20 10:49 Zoloft PO Not Given QAM RACHEL Simple Syrup 15 ml 08/18/20 10:51 Simple Syrup FEEDTUBE PRN PRN Hypoglycemia Simple Syrup 30 ml 08/18/20 10:51 Simple Syrup FEEDTUBE PRN PRN Hypoglycemia Sodium Bicarbonate 325 mg 08/18/20 10:51 Sodium Bicarbonate FEEDTUBE PRN PRN For Clogged Feeding Tube Sodium Chloride 10 ml 08/16/20 22:00 08/19/20 21:59 Sodium Chloride Flush Syringe 10 Ml IV 10 ml BID RACHEL Administration Sodium Chloride 10 ml 08/16/20 18:17 Sodium Chloride Flush Syringe 10 Ml IV PRN PRN LINE FLUSH Sodium Hypochlorite 1 applic 08/18/20 22:00 08/19/20 22:02 Dakin's Half Strength TP 1 applicator BID RACHEL Administration Nutrition/Malnutrition Assess - Dietary Evaluation Nutrition/Malnutrition Findings: Nutrition Notes Start: 08/17/20 14:55 Freq: Status: Active Protocol: Document 08/18/20 14:16 EN (Rec: 08/18/20 14:24 EN [email or web address]) Co-Sign 08/18/20 14:16 LM Nutrition Notes Initial or Follow up Brief Note Current Diagnosis Decubitus(Pressure Ulcer), Hypertension,Stroke Other Pertinent Diagnosis FTT, UTI, Seizure, depression, dehydration, dysphagia, hypernatremia, Current Diet Osmolite 1.5 at 40 ml/hr (goal rate) Subjective/Other Information Consult for MST, difficulty chewing, low BMI screen. Pt with multiple pressure ulcers located on her heels and sacrum. Manish score 8. TF ordered to start today at lunch #2 Nutrition Diagnosis Increased nutrient needs ( specify in comment below) Comments: Protein Etiology wound healing As Evidenced by Signs and Symptoms Multiple pressure ulcers Calculation Used for Recommendations Mahendra Adam Additional Notes Protein: 1.25-1.5 g/kg (63-75g ) Fluid: 1 ml/kcal Nutrition Intervention Nutrition Support: Osmolite 1.5 at 40 ml/hr (goal rate) Flush 220 ml q4h for hypernatremia Flush 120 ml q4h once hypernatremia is resolved Kcal 1,440 Protein (gm) 60 Fluid (mL) 732 Goal #1 Meet 75% of energy and protein needs with TF Anticipated Discharge Needs: unable to determine at this time Follow-Up By: 08/20/20 Additional Comments FU for TF start/tolerance
[2020-08-20 06:51] LABS: BUN/Creatinine Ratio 18; Blood Urea Nitrogen 7 mg/dL (7-17); Calcium 7.9 mg/dL (8.4-10.2); Hemolysis Index 6
[2020-08-20] MEDS: POTASSIUM CHLORIDE 10 MEQ 10 MEQ/100 ML BAG IV SCH ×4 (07:45→16:09)
[2020-08-20] MEDS: LOSARTAN 50 MG TAB PO SCH (09:49)
[2020-08-20] MEDS: ASPIRIN 81 MG TAB CHEW PO SCH (09:49)
[2020-08-20] MEDS: carvediloL 25 MG TAB PO SCH ×2 (09:49→21:43)
[2020-08-20] MEDS: amLODIPine 5 MG TAB PO SCH (09:49)
[2020-08-20] MEDS: POLYETHYLENE GLYCOL 3350 17 GM POWDER PO SCH (09:50)
[2020-08-20] MEDS: ACETAMINOPHEN 325 MG TAB PO SCH ×2 (09:50→21:43)
[2020-08-20] MEDS: HEPARIN 5,000 UNIT/1 ML VIAL SUB-Q SCH ×2 (09:50→21:42)
[2020-08-20] MEDS: SERTRALINE 100 MG TAB PO SCH (09:50)
[2020-08-20] MEDS: LANSOPRAZOLE 30 MG SOLUTAB FEEDTUBE SCH (09:57)
--- NOTE | 2020-08-20 10:37 | Progress Note ---
Assessment and Plan Cultures: Blood cultures 08/16/2020 no growth today Urine culture 08/16/2020 Proteus mirabilis Sacral wound culture 08/17/2020 Proteus mirabilis and strep group G Assessment: 59 years old female with history of hypertension hyperlipidemia,, seizures, CVA with right hemiparesis, aphasia, and dysphagia bedbound, dementia with multiple pressure ulcers, resident of residential, admitted on secondary to worsening confusion and altered mental status associated with poor p.o. intake for 3 days: #Unstageable infected necrotic sacral decubitus: Wound culture growing Proteus mirabilis and Strep G, status post debridement partial removal of coccygeal bone. #UTI: Mild, growing Proteus mirabilis #History of CVA with right hemiparesis, aphasia and dysphagia, bedbound #Malnutrition Recommendations: -Follow-up wound culture -Stop Zosyn, start cefepime -Patient is to have a PEG placement -Anticipate to be discharged on cefepime 2 g IV q12 hour total 4 weeks until 09/16/2020-sent to manager case -Needs aggressive offloading, nutrition optimization, and plastic surgery for flap as needed, unfortunately not a good prognosis for healing. -Place PICC line Will sign off please call us with questions Nargis Wylie MD Infectious Diseases [employer] Manager [facility] M [phone] O [phone] Subjective Date of service: 08/20/20 Principal diagnosis: Neurogenic Dysphagia Interval history: Remains nonverbal, no fever, underwent PEG placement Objective - Exam Narrative Exam: General appearance: Alert in no acute distress nonverbal Eyes: anicteric sclerae, moist conjunctivae; no lid-lag; PERRLA HENT: Normocephalic, Atraumatic; normal external ears, nares open, oropharynx limited Neck: supple, tracheal midline, no JVD Lungs: CTA bilaterally CV: RRR no murmur Abdomen: Soft, non-tender Extremities: no edema, no cyanosis Skin: per wound care evaluation sacral decubitus 8.5 x 11 x 1.8 cm wound bed with necrotic tissue and foul-smelling purulent drainage. Psych: no agitated Neuro: Alert nonverbal - Constitutional Vitals: Vital Signs Temp Pulse Resp BP Pulse Ox 98.1 F 68 20 148/93 97 08/20/20 06:25 08/20/20 06:25 08/20/20 06:25 08/20/20 06:25 08/20/20 06:25 Temperature -Last 24 Hours Temperature 98.1 F Temperature 98.4 F Temperature 98.3 F Temperature 98.1 F - Labs CBC & Chem 7: 08/19/20 04:38 08/20/20 05:12 Labs: Abnormal lab results 08/19/20 08/19/20 08/19/20 Range/Units 15:15 17:45 22:04 Potassium 3.4 L (3.6-5.0) mmol/L Chloride (98-107) mmol/L Carbon Dioxide (22-30) mmol/L Creatinine (0.6-1.2) mg/dL Glucose (65-100) mg/dL POC Glucose 113 H 109 H (70-105) mg/dL Calcium (8.4-10.2) mg/dL 08/20/20 Range/Units 05:12 Potassium 3.4 L (3.6-5.0) mmol/L Chloride 107.7 H (98-107) mmol/L Carbon Dioxide 21 L (22-30) mmol/L Creatinine 0.4 L (0.6-1.2) mg/dL Glucose 186 H (65-100) mg/dL POC Glucose (70-105) mg/dL Calcium 7.9 L (8.4-10.2) mg/dL
[2020-08-20] MEDS: SODIUM HYPOCHLORITE, DAKIN'S 1/2 STRENGTH (0.25%) 473 ML TOPICAL SOLN TP SCH ×2 (12:00→21:45)
[2020-08-20] MEDS: levETIRAcetam 500 MG in DEXTROSE 5% IN WATER 100 ML IV SCH ×2 (12:17→21:50)
[2020-08-20] MEDS: DEXTROSE 5% IN WATER 1,000 ML IV SCH (12:26)
--- NOTE | 2020-08-20 12:47 | Progress Note ---
Assessment and Plan - Patient Problems (1) Hypernatremia Current Visit: No Status: Acute Plan to address problem: continue with current free water repletion. Patient has been started on D5 half-normal saline. We will closely monitor. Levels improved at this time. (2) Hypokalemia Current Visit: Yes Status: Acute Plan to address problem: Replete per protocol. (3) Urinary tract infection Current Visit: Yes Status: Acute Plan to address problem: antibiotic management per primary attending. (4) Acute metabolic encephalopathy Current Visit: No Status: Acute Plan to address problem: she has underlying history of dementia. Acute worsening may be in the setting of aforementioned urinary tract infection and hypernatremia. We will continue to monitor (5) Failure to thrive Current Visit: Yes Status: Chronic Plan to address problem: would recommend dietary consultation. (6) Unstageable pressure ulcer of sacral region Current Visit: Yes Status: Acute Plan to address problem: s/p debridement by surgery. Continue with current wound care. Further recommendations per ID in regards to antibiotic regimen. Subjective Date of service: 08/20/20 Principal diagnosis: Neurogenic Dysphagia Interval history: No acute changes overnight. S/P sacral ulcer debridement by surgery. Wound culture showing growth of proteus mirabilis. Renal function stable, and serum sodium levels improved. Objective - Vital Signs Vital signs: Vital Signs - 12hr 08/20/20 08/20/20 06:25 10:56 Temperature 98.1 F 98.3 F Pulse Rate 68 64 Respiratory 20 20 Rate Blood Pressure 148/93 179/110 O2 Sat by Pulse 97 99 Oximetry - General Appearance General appearance: chronically ill, frail EENT: ATNC Neck: no JVD Respiratory: Present: Clear to Ascultation Cardiology: regular Gastrointestinal: normal Integumentary: ulcer Musculoskeletal: deferred - Lab 08/19/20 04:38 08/20/20 05:12 Most recent lab results Calcium 7.9 mg/dL (8.4-10.2) L 08/20/20 05:12 Magnesium 2.50 mg/dL (1.7-2.3) H 08/16/20 16:58 - Allied health notes Allied health notes reviewed: nursing Medications & Allergies - Medications Allergies/Adverse Reactions: Allergies lisinopril Allergy (Verified 07/27/20 21:47) Unknown Home Medications: Home Medications Medication Instructions Recorded Confirmed Last Taken Type Acetaminophen [Tylenol] 2 tab PO BID 07/27/20 08/19/20 Unknown History Aspirin [Aspirin BABY CHEW TAB] 81 mg PO QDAY 07/27/20 08/19/20 Unknown History Atorvastatin Calcium [Lipitor] 80 mg PO QHS 07/27/20 08/19/20 Unknown History Baclofen 5 mg PO TID 07/27/20 08/19/20 Unknown History Hydralazine HCl 50 mg PO Q8HR 07/27/20 08/19/20 Unknown History Melatonin [Melatonin 3MG TAB 3 mg PO QDAY 07/27/20 08/19/20 Unknown History RAPDIS] NIFEdipine [Nifedipine ER] 60 mg PO QDAY 07/27/20 08/19/20 Unknown History Sennosides [Senna] 2 tab PO DAILY PRN 07/27/20 08/19/20 Unknown History Sertraline HCl [Zoloft] 2 tab PO QAM 07/27/20 08/19/20 Unknown History carvediloL [Coreg] 25 mg PO BID 07/27/20 08/19/20 Unknown History cloNIDine-TTS PATCH [Catapres-Tts 1 patch TD Q7D 07/27/20 08/19/20 Unknown History 0.3mg Patch] donepeziL [Aricept] 10 mg PO QHS 07/27/20 08/19/20 Unknown History levETIRAcetam [Keppra] 500 mg PO BID 07/27/20 08/19/20 Unknown History polyethylene glycoL 3350 [Miralax 17 gm PO QDAY 07/27/20 08/19/20 Unknown History 3350] Losartan [Cozaar] 50 mg PO QDAY #30 tablet 08/01/20 08/19/20 Unknown Rx Active Medications: Generic Name Dose Route Start Last Admin Trade Name Freq PRN Reason Stop Dose Admin Acetaminophen 650 mg 08/16/20 18:17 Tylenol PO Q4H PRN Pain MILD(1-3)/Fever >100.5/SAWYER Acetaminophen 650 mg 08/16/20 22:00 08/20/20 09:50 Tylenol PO Not Given BID RACHEL Albuterol 2.5 mg 08/16/20 18:17 Proventil IH Q4HRT PRN Shortness Of Breath Amlodipine Besylate 7.5 mg 08/17/20 18:00 08/20/20 09:49 Amlodipine PO Not Given QDAY REPLACED BY [facility] Lipase/Protease/Amylase 1 each 08/18/20 10:51 Pancreveena Pena 10,500 Unit FEEDTUBE PRN PRN For Clogged Feeding Tube Aspirin 81 mg 08/17/20 10:00 08/20/20 09:49 Baby Aspirin PO Not Given QDAY REPLACED BY [facility] Atorvastatin Calcium 80 mg 08/16/20 22:00 08/19/20 21:59 Lipitor PO Not Given QHS REPLACED BY [facility] Baclofen 5 mg 08/16/20 22:00 08/20/20 05:46 Lioresal PO Not Given Q8HR REPLACED BY [facility] Carvedilol 25 mg 08/16/20 22:00 08/20/20 09:49 Coreg PO Not Given BID REPLACED BY [facility] Clonidine HCl 0.3 mg 08/16/20 19:00 08/16/20 22:30 Catapres-Tts Patch TD 0.3 mg Mo RACHEL Administration Dextrose 50 ml 08/16/20 19:05 D50w (25gm) Syringe IV Q30MIN PRN Hypoglycemia Protocol Donepezil HCl 10 mg 08/16/20 22:00 08/19/20 21:58 Aricept PO Not Given QHS REPLACED BY [facility] Heparin Sodium (Porcine) 5,000 unit 08/16/20 22:00 08/20/20 09:50 Heparin SUB-Q Not Given Q12HR REPLACED BY [facility] Hydralazine HCl 50 mg 08/16/20 22:00 08/20/20 05:46 Apresoline PO Not Given Q8HR REPLACED BY [facility] Dextrose 1,000 mls @ 100 mls/hr 08/16/20 20:00 08/20/20 12:26 D5w IV 100 mls/hr DIRECT RACHEL Administration Piperacillin Sod/Tazobactam Sod 4.5 gm in 100 mls @ 200 mls/hr 08/19/20 15:00 08/20/20 05:46 Zosyn/Ns 4.5gm/100ml IV 200 mls/hr Q8HR REPLACED BY [facility] Administration Levetiracetam 500 mg/ Dextrose 105 mls @ 400 mls/hr 08/19/20 22:00 08/20/20 12:17 IV 400 mls/hr Q12HR RACHEL Administration Insulin Human Lispro 0 unit 08/16/20 20:00 08/20/20 09:47 Humalog SUB-Q Not Given Q6H REPLACED BY [facility] Protocol Lansoprazole 30 mg 08/19/20 13:00 08/20/20 09:57 Prevacid Solutab FEEDTUBE Not Given QDAY RACHEL Losartan Potassium 50 mg 08/17/20 10:00 08/20/20 09:49 Cozaar PO Not Given QDAY RACHEL Melatonin 5 mg 08/16/20 22:00 08/19/20 21:59 Melatonin PO Not Given QHS REPLACED BY [facility] Ondansetron HCl 4 mg 08/16/20 18:17 Zofran IV Q8H PRN Nausea And Vomiting Polyethylene Glycol 17 gm 08/17/20 10:00 08/20/20 09:50 Miralax 3350 PO Not Given QDAY REPLACED BY [facility] Senna 17.2 mg 08/16/20 18:42 08/18/20 12:57 Senokot PO 17.2 mg DAILY PRN Administration Laxative Effect Sertraline HCl 200 mg 08/17/20 10:00 08/20/20 09:50 Zoloft PO Not Given QAM RACHEL Simple Syrup 15 ml 08/18/20 10:51 Simple Syrup FEEDTUBE PRN PRN Hypoglycemia Simple Syrup 30 ml 08/18/20 10:51 Simple Syrup FEEDTUBE PRN PRN Hypoglycemia Sodium Bicarbonate 325 mg 08/18/20 10:51 Sodium Bicarbonate FEEDTUBE PRN PRN For Clogged Feeding Tube Sodium Chloride 10 ml 08/16/20 22:00 08/20/20 09:56 Sodium Chloride Flush Syringe 10 Ml IV 10 ml BID RACHEL Administration Sodium Chloride 10 ml 08/16/20 18:17 Sodium Chloride Flush Syringe 10 Ml IV PRN PRN LINE FLUSH Sodium Hypochlorite 1 applic 08/18/20 22:00 08/19/20 22:02 Dakin's Half Strength TP 1 applicator BID RACHEL Administration
[2020-08-20] MEDS ORDERED: ceFAZolin/Water 2 GM/20 ML 2 GM/20 ML SYRINGE IV NR (13:00)
[2020-08-20] MEDS ORDERED: SODIUM CHLORIDE 0.9% 500 ML 500 ML ONE (13:21)
[2020-08-20] MEDS ORDERED: ceFAZolin/Water 2 GM/20 ML 2 GM/20 ML SYRINGE IV ONE (13:56)
[2020-08-20] MEDS ORDERED: SODIUM CHLORIDE 0.9% 500 ML 500 ML IV SCH (14:00)
--- NOTE | 2020-08-20 14:08 | Anesthesia Day of Surgery ---
Anesthesia Day of Surgery - Day of Surgery Patient Examined: Yes Patient H&P Reviewed: Yes Patient is NPO: Yes
--- NOTE | 2020-08-20 14:10 | Anesthesia Consultation ---
Anesthesia Consult and Med Hx Date of service: 08/20/20 - Airway Anesthetic Teeth Evaluation: Edentulous (Unable to assess airway) - Pre-Operative Health Status ASA Pre-Surgery Classification: ASA3 Proposed Anesthetic Plan: MAC - Pulmonary Hx Asthma: No COPD: No Hx Pneumonia: No - Cardiovascular System Hx Hypertension: Yes - Central Nervous System Hx Seizures: Yes CVA: Yes - Endocrine Hx Renal Disease: Yes Hx End Stage Renal Disease: No - Other Systems Hx Cancer: No - Additional Comments Anesthesia Medical History Comments: 59 [facility] patient with CVA complicated by dysphagia as well as aphasia, HTN, Seizure Disorder, Depression, Vascular Dementia, Cerebral Atherosclerosis, HLD. Acute metabolic encephalopathy. Sacral ulcer with presumed abscess S/P Debridement of sacral pressure ulcer--Post debridement measurements: 9.2 X 11.2 X 3.0 cm. Necrotic Pressure ulcer- Unstageable-Wound culture growing gram-negative bacilli. Persistent Hypokalemia. Systemic inflammatory response syndrome without organ dysfunction, no evidence of sepsis. Hyperosmolar with hypernatremia- RESOLVING. Presumed vascular dementia. Prior CVA with dysphagia as well as aphasia- Per staff that I spoke with. Cerebral Atherosclerosis. Severe Protein Calorie Malnutrition. Bilateral lower extremity ulcers. Seizure disorder. Hypertension. Depression. Hyperlipidemia. Total care with activity of daily living
[2020-08-20] MEDS ORDERED: propofoL 200 MG/20 ML VIAL IV ONE (14:13)
--- NOTE | 2020-08-20 14:44 | Post Operative Note ---
Pre-op diagnosis: neurogenic dysphagia Post-op diagnosis: same (, s/p PEG) Findings: 1. Mild gastritis, o/w normal UGI tract - Successful 20Fr Pull-type PEG 3cm below LSB - External bumper at 3cm on skin Procedure: EGD with PEG placement Anesthesia: MAC Surgeon: MICHAELA LORENZO Estimated blood loss: minimal Pathology: none Specimen disposition: other (N/A) Condition: stable Disposition: floor (Recs: 1. May use PEG in 4 hours. 2. Protonix daily therapy given gastritis noted. 3. Will loosen PEG bumper tomorrow prior to d/c. 4. OK to continue daily ASA.)
--- NOTE | 2020-08-20 15:14 | Post Anesthesia Evaluation ---
- Post Anesthesia Evaluation Patient Participated: No (Baseline) Airway Patent: Yes Stable Respiratory Function: Yes Nausea/Vomiting: No Temp > 96.8F: Yes Pain Manageable: Yes Adequeate Hydration: Yes Anesthesia Complications: No Block Receding Appropriately: Not Applicable Patient on Ventilator: No
--- NOTE | 2020-08-20 18:09 | Operative Report ---
PROCEDURES PERFORMED: Esophagogastroduodenoscopy with percutaneous gastrostomy tube placement. PREOPERATIVE DIAGNOSIS: Neurogenic dysphagia. POSTOPERATIVE DIAGNOSES: Neurogenic dysphagia, status post gastrostomy tube placement. ENDOSCOPIST: Melvin Alejandro MD INSTRUMENT: Olympus video endoscope. MEDICATIONS: MAC anesthesia by Anesthesia Services, as well as Ancef 2 grams given intravenously prior to the start of the procedure. ESTIMATED BLOOD LOSS: Minimal. COMPLICATIONS: None apparent. SPECIMENS: None. IMPLANTS: A 20-Tongan pull type gastrostomy tube. ASSISTANTS: None. CONDITION AT COMPLETION: Stable. TECHNIQUE: The patient's son was informed of the risks and benefits of the procedure due to the patient's altered mental status, the son provided informed consent. After consent was obtained by telephone, the patient was placed in the supine position. The above sedative medications were given. Her vital signs remained stable throughout the procedure. The instrument was advanced from the mouth to the second portion of the duodenum under direct visualization. At that point, the bowel was insufflated and the endoscope was withdrawn into the body of the stomach. There was a good red light reflex and indentation in an area noted 3 cm below the left sternal border. This area was sterilely draped and prepped. There was no insufflation of air upon injection of dilute lidocaine for local anesthesia until the syringe pierced the gastric lumen. At that point, the needle was removed and a 20-Tongan pull type gastrostomy tube was placed over a guidewire in the usual fashion. The procedure was then terminated. FINDINGS: 1. Mild erosive gastritis in the antrum and the body of the stomach, otherwise normal duodenum, stomach, and esophagus. A. Successful 20-Tongan pull type gastrostomy tube 3 cm below the left sternal border. B. The external bumper was fixed at 3 cm on the skin, 4 cm at the top of the bumper. RECOMMENDATIONS: 1. May use gastrostomy tube in 4 hours. 2. Protonix daily therapy given the gastritis noted in the stomach. 3. We will loosen the gastrostomy tube bumper tomorrow prior to discharge. 4. Okay to continue daily aspirin as the gastritis appears to be mild. JOB# [id number] MARLENE/NTS
[2020-08-20] MEDS: MELATONIN 5 MG TAB PO SCH (21:43)
[2020-08-20] MEDS: CEFEPIME/NS 2 GM/100 ML 2 GM/100 ML BAG IV SCH (21:50)
[2020-08-20] MEDS: DONEPEZIL 10 MG TAB PO SCH (21:58)
[2020-08-20] MEDS: SODIUM CHLORIDE 0.9% 1000 ML 1,000 ML IV SCH (21:59)
[2020-08-21 05:28] LABS: Blood Urea Nitrogen 4 mg/dL (7-17); Calcium 7.9 mg/dL (8.4-10.2); Hemolysis Index 3
[2020-08-21 05:29] LABS: BUN/Creatinine Ratio 13
[2020-08-21] MEDS: INSULIN LISPRO 100 UNIT/ML VIAL 3 mL SUB-Q SCH ×3 (10:18→22:50)
[2020-08-21] MEDS: amLODIPine 5 MG TAB PO SCH (10:27)
[2020-08-21] MEDS: LOSARTAN 50 MG TAB PO SCH (10:29)
[2020-08-21] MEDS: carvediloL 25 MG TAB PO SCH ×2 (10:29→21:56)
[2020-08-21] MEDS: ASPIRIN 81 MG TAB CHEW PO SCH (10:31)
[2020-08-21] MEDS: LANSOPRAZOLE 30 MG SOLUTAB FEEDTUBE SCH (10:31)
[2020-08-21] MEDS: ACETAMINOPHEN 325 MG TAB PO SCH ×2 (10:31→21:55)
[2020-08-21] MEDS: SERTRALINE 100 MG TAB PO SCH (10:32)
[2020-08-21] MEDS: POLYETHYLENE GLYCOL 3350 17 GM POWDER PO SCH (10:32)
[2020-08-21] MEDS: CEFEPIME/NS 2 GM/100 ML 2 GM/100 ML BAG IV SCH ×2 (10:32→21:54)
[2020-08-21] MEDS: HEPARIN 5,000 UNIT/1 ML VIAL SUB-Q SCH ×2 (10:32→21:55)
[2020-08-21] MEDS: hydrALAZINE 25 MG TAB PO SCH ×3 (10:33→21:56)
[2020-08-21] MEDS: SODIUM HYPOCHLORITE, DAKIN'S 1/2 STRENGTH (0.25%) 473 ML TOPICAL SOLN TP SCH ×2 (10:34→21:58)
--- NOTE | 2020-08-21 11:15 | Progress Note ---
Assessment and Plan - Patient Problems (1) Hyperosmolality with hypernatremia Current Visit: Yes Status: Acute Plan to address problem: Sodium improved back to normal. Continue free water replacement (2) Hypokalemia Current Visit: Yes Status: Acute Plan to address problem: Potassium improved but still low normal. Supplement potassium and follow-up levels (3) Neurogenic dysphagia Current Visit: Yes Status: Acute Plan to address problem: Status post PEG. Feeding per GI (4) Urinary tract infection Current Visit: Yes Status: Acute Plan to address problem: Continue antibiotics Subjective Date of service: 08/21/20 Principal diagnosis: Neurogenic Dysphagia Interval history: Patient seen lying in bed. She is nonverbal. She is awake and follows my movements in the room Objective - Exam Narrative Exam: Middle-aged -[place] female lying in bed in no acute distress HEENT: NCAT, pink oral mucous membrane Neck: Supple, no venous distention CVS: S1S2 RRR with no murmur, rub or gallop Chest: Clear to auscultation Abdomen: Protuberant, soft, nontender, no organomegaly, bowel sounds are present Extremities: No edema Neuro: Awake, alert, nonverbal no focal deficits - Vital Signs Vital signs: Vital Signs - 12hr 08/21/20 08/21/20 08/21/20 06:11 10:27 10:29 Temperature 98.2 F Pulse Rate 57 L 57 L 57 L Respiratory 20 Rate Blood Pressure 117/83 O2 Sat by Pulse 97 Oximetry - Lab 08/19/20 04:38 08/21/20 04:45 Most recent lab results Calcium 7.9 mg/dL (8.4-10.2) L 08/21/20 04:45 Magnesium 2.50 mg/dL (1.7-2.3) H 08/16/20 16:58 Medications & Allergies - Medications Allergies/Adverse Reactions: Allergies lisinopril Allergy (Verified 07/27/20 21:47) Unknown Home Medications: Home Medications Medication Instructions Recorded Confirmed Last Taken Type Acetaminophen [Tylenol] 2 tab PO BID 07/27/20 08/19/20 Unknown History Aspirin [Aspirin BABY CHEW TAB] 81 mg PO QDAY 07/27/20 08/19/20 Unknown History Atorvastatin Calcium [Lipitor] 80 mg PO QHS 07/27/20 08/19/20 Unknown History Baclofen 5 mg PO TID 07/27/20 08/19/20 Unknown History Hydralazine HCl 50 mg PO Q8HR 07/27/20 08/19/20 Unknown History Melatonin [Melatonin 3MG TAB 3 mg PO QDAY 07/27/20 08/19/20 Unknown History RAPDIS] NIFEdipine [Nifedipine ER] 60 mg PO QDAY 07/27/20 08/19/20 Unknown History Sennosides [Senna] 2 tab PO DAILY PRN 07/27/20 08/19/20 Unknown History Sertraline HCl [Zoloft] 2 tab PO QAM 07/27/20 08/19/20 Unknown History carvediloL [Coreg] 25 mg PO BID 07/27/20 08/19/20 Unknown History cloNIDine-TTS PATCH [Catapres-Tts 1 patch TD Q7D 07/27/20 08/19/20 Unknown History 0.3mg Patch] donepeziL [Aricept] 10 mg PO QHS 07/27/20 08/19/20 Unknown History levETIRAcetam [Keppra] 500 mg PO BID 07/27/20 08/19/20 Unknown History polyethylene glycoL 3350 [Miralax 17 gm PO QDAY 07/27/20 08/19/20 Unknown History 3350] Losartan [Cozaar] 50 mg PO QDAY #30 tablet 08/01/20 08/19/20 Unknown Rx Active Medications: Generic Name Dose Route Start Last Admin Trade Name Freq PRN Reason Stop Dose Admin Acetaminophen 650 mg 08/16/20 18:17 Tylenol PO Q4H PRN Pain MILD(1-3)/Fever >100.5/SAWYER Acetaminophen 650 mg 08/16/20 22:00 08/21/20 10:31 Tylenol PO 650 mg BID RACHEL Administration Albuterol 2.5 mg 08/16/20 18:17 Proventil IH Q4HRT PRN Shortness Of Breath Amlodipine Besylate 7.5 mg 08/17/20 18:00 08/21/20 10:27 Amlodipine PO Not Given QDAY [facility] Lipase/Protease/Amylase 1 each 08/18/20 10:51 Pancreveena Pena 10,500 Unit FEEDTUBE PRN PRN For Clogged Feeding Tube Aspirin 81 mg 08/17/20 10:00 08/21/20 10:31 Baby Aspirin PO 81 mg QDAY RACHEL Administration Atorvastatin Calcium 80 mg 08/16/20 22:00 08/20/20 21:45 Lipitor PO 80 mg QHS RACHEL Administration Baclofen 5 mg 08/16/20 22:00 08/20/20 21:44 Lioresal PO 5 mg Q8HR RACHEL Administration Carvedilol 25 mg 08/16/20 22:00 08/21/20 10:29 Coreg PO Not Given BID RACHEL Clonidine HCl 0.3 mg 08/16/20 19:00 08/16/20 22:30 Catapres-Tts Patch TD 0.3 mg Mo RACHEL Administration Dextrose 50 ml 08/16/20 19:05 D50w (25gm) Syringe IV Q30MIN PRN Hypoglycemia Protocol Donepezil HCl 10 mg 08/16/20 22:00 08/20/20 21:58 Aricept PO 10 mg QHS RACHEL Administration Heparin Sodium (Porcine) 5,000 unit 08/16/20 22:00 08/21/20 10:32 Heparin SUB-Q 5,000 unit Q12HR RACHEL Administration Hydralazine HCl 50 mg 08/16/20 22:00 08/21/20 10:33 Apresoline PO Not Given Q8HR RACHEL Levetiracetam 500 mg/ Dextrose 105 mls @ 400 mls/hr 08/19/20 22:00 08/20/20 21:50 IV 400 mls/hr Q12HR RACHEL Administration Sodium Chloride 1,000 mls @ 50 mls/hr 08/20/20 13:00 08/20/20 21:59 Nacl 0.9% 1000 Ml IV 50 mls/hr DIRECT RACHEL Administration Sodium Chloride 500 mls @ 50 mls/hr 08/20/20 14:00 08/20/20 13:50 Nacl 0.9% 500 Ml IV 08/21/20 13:59 50 mls/hr DIRECT RACHEL Administration Cefepime HCl 2 gm in 100 mls @ 200 mls/hr 08/20/20 22:00 08/21/20 10:32 Cefepime/Ns 2 Gm/100 Ml IV 200 mls/hr Q12HR RACHEL Administration Protocol Insulin Human Lispro 0 unit 08/16/20 20:00 08/21/20 10:18 Humalog SUB-Q Not Given Q6H RACHEL Protocol Lansoprazole 30 mg 08/19/20 13:00 08/21/20 10:31 Prevacid Solutab FEEDTUBE 30 mg QDAY RACHEL Administration Losartan Potassium 50 mg 08/17/20 10:00 08/21/20 10:29 Cozaar PO Not Given QDAY RACHEL Melatonin 5 mg 08/16/20 22:00 08/20/20 21:43 Melatonin PO 5 mg QHS RACHEL Administration Ondansetron HCl 4 mg 08/16/20 18:17 Zofran IV Q8H PRN Nausea And Vomiting Polyethylene Glycol 17 gm 08/17/20 10:00 08/21/20 10:32 Miralax 3350 PO 17 gm QDAY RACHEL Administration Senna 17.2 mg 08/16/20 18:42 08/18/20 12:57 Senokot PO 17.2 mg DAILY PRN Administration Laxative Effect Sertraline HCl 200 mg 08/17/20 10:00 08/21/20 10:32 Zoloft PO 200 mg QAM RACHEL Administration Simple Syrup 15 ml 08/18/20 10:51 Simple Syrup FEEDTUBE PRN PRN Hypoglycemia Simple Syrup 30 ml 08/18/20 10:51 Simple Syrup FEEDTUBE PRN PRN Hypoglycemia Sodium Bicarbonate 325 mg 08/18/20 10:51 Sodium Bicarbonate FEEDTUBE PRN PRN For Clogged Feeding Tube Sodium Chloride 10 ml 08/16/20 22:00 08/20/20 21:42 Sodium Chloride Flush Syringe 10 Ml IV 10 ml BID RACHEL Administration Sodium Chloride 10 ml 08/16/20 18:17 Sodium Chloride Flush Syringe 10 Ml IV PRN PRN LINE FLUSH Sodium Hypochlorite 1 applic 08/18/20 22:00 08/21/20 10:34 Dakin's Half Strength TP 1 applicator BID RACHEL Administration
[2020-08-21] MEDS: levETIRAcetam 500 MG in DEXTROSE 5% IN WATER 100 ML IV SCH ×2 (11:19→22:24)
--- NOTE | 2020-08-21 11:25 | Discharge Summary ---
Providers - Providers Date of Admission: 08/16/20 18:17 Attending physician: JUSTUS HILTON MD 08/16/20 18:21 Consult to Physician [CONS] Routine Comment: Consulting Provider: EMILIA HWANG Physician Instructions: Reason For Exam: hypernatremia 08/17/20 08:41 Consult to Dietitian/Nutrition [CONS] Routine Physician Instructions: Reason For Exam: Reason for Consult: Poor oral intake 08/17/20 09:45 Consult to Wound/ET Nurse [CONS] Routine Reason For Exam: wound eval 08/17/20 12:51 Speech Therapy Evaluation and Treat [CONS] Routine Reason For Exam: swallowing 08/17/20 15:57 Consult to Physician [CONS] Routine Comment: Consulting Provider: MICHAELA LORENZO Physician Instructions: Reason For Exam: peg placement for failure to thrive poor po intake 08/18/20 11:31 Consult to Physician [CONS] Routine Comment: Consulting Provider: ELOISE REDMAN Physician Instructions: surgical debridement of sacral decubitus Reason For Exam: sacral decubitus 08/18/20 13:18 Consult to Physician [CONS] Routine Comment: Consulting Provider: NARGIS TRUJILLO Physician Instructions: Reason For Exam: necrotic sacral ulcer 08/19/20 10:34 Occupational Therapy Evaluate and Treat [CONS] Routine Comment: Reason For Exam: DEBILITY- PLACEMENT ASSSESSMENT Physical Therapy Evaluation and Treat [CONS] Routine Comment: Reason For Exam: DEBILITY-pLAcement assessment 08/20/20 10:39 Consult to Case Management [CONS] Stat Services Needed at Discharge: Other Notified:: manager contact Additional Physician Instructions: [facility] ([facility]) [address] [facility] [place] [id number] OUTPATIENT PARENTERAL ANTIBIOTIC THERAPY (OPAT) ORDERS Diagnoses: Necrotic sacral decubitus with osteomyelitis Administer: cefepime 2 g IV q12 hour total 4 weeks until 09/16/2020. Remove PICC line after last dose unless otherwise instructed. Line: Maintain IV access with weekly dressing changes and locks per protocol. Labs: Every Sunday CBC, AST, ALT, Creatinine. Please fax results to [phone] and call [phone] for critical lab results. Nargis Parks MD Infectious Diseases Product Sales Representative [facility] ([facility]) O: [phone] F: [phone] Consult to PICC Line RN [CONS] Stat Reason For Exam: IV antibiotics Type Line:: PICC 08/20/20 14:51 Consult to Dietitian/Nutrition [CONS] Routine Physician Instructions: Reason For Exam: Reason for Consult: Write/Manage Tube Feeding 08/20/20 21:00 Consult to Wound/ET Nurse [CONS] Routine Reason For Exam: wound eval. for lt hand blister Primary care physician: CONSUMER EDUCATOR Hospitalization Reason for admission: ams Condition: Stable Hospital course: Patient is a 59 YO [facility] Facility patient with CVA complicated by dysphagia as well as aphasia, HTN, Seizure Disorder, Depression, Vascular Dementia, Cerebral Atherosclerosis, HLD presents to ED for evaluation. Patient is confused with diminished cognition and is unable to provide history at the time of my evaluation. Patient history taken from EMS staff, ED staff, as well as [facility] facility staff. As per staff the patient has experienced increased confusion, decreased verbalization, decreased interaction with staff, and decreased oral intake over the past 3 days. EMS run sheet is not available to me at this time but it was documented that the patient was found in distress prior to being transferred to our facility. Patient seen and evaluated in the emergency department. All lab and imaging studies reviewed. The patient was found to have urinary tract infection, metabolic encephalopathy, severe hyponatremia, as well as volume depletion secondary to free water deficit. Patient is currently Aphasic bedbound, nonambulatory with a palliative performance score of 30%. The admitting physician patient currently requires 6/6 assistance with all activities of daily living. Patient admitted to medical floor and initiated on IV antibiotic therapy as well as IV fluid resuscitation therapy. Nephrology team consulted in ED. No further history is obtainable. Patient has diminished cognition at the time of my evaluation but has a positive gag reflex and is able to protect her airway. custodial facility staff deny report of fever, chills, palpitations, productive cough, skin rash, recent ill contacts, or known exposure to COVID-19. Advanced care planning conducted in ED. 08/20: Continue zosyn per ID, cultures WOUND Growing Proteous Mirabilus. Beta Hemolytic strep FOLLOW ID/SENSITIVITY. Will give additional Potassium today. Patient is for PEG Placement today -PEG held today secondary to severe Hypokalemia. Give extra K - Sodium has improved -Discussed with GI, PEG was done. - ID input noted, abx changes noted, Offloading as much as possible is main stay therapy. Poor prognosis for wound healing - Monitor sodium level as it continues to improve - ID consult, and Surgery consult for necrotic pressure ulcer 08/21: Patient clinically improved PEG tube is in place for diet. Arranging antibiotics anticipate 4 weeks of antibiotic therapy. PICC line to be placed. Discussed with case management facility is requesting a Covid test and also a proper observation prior to returning case management work on the process. 08/22: Continue supportive care pending discharge I did discuss with the staff at the senior care who states that the patient had stopped eating and they had actually discussed with the son who had recommended and agreed for a PEG tube placement. They were in the process of this prior to the patient being transferred to the hospital. Also on discussion with the nurse patient does have a sacral ulcer which was present on admission appears to have some abscess considering the foul order. We will start the patient on vancomycin. Will obtain wound culture will obtain wound care and based on their recommendation patient may benefit from debridement by surgery. Renal input appreciated Also prevention methodologies including every 2 hours turns. 08/23: Ms. Street has continued to improve following debridement. Patient was seen by nephrology for hyperosmolar hyponatremia which has improved electrolyte abnormalities including hypokalemia has been corrected. Patient during the stay obtain the PEG tube in addition to the debridement that was done secondary to neurogenic dysphagia. She is tolerating tube feeds and is stable for discharge ID recommended cefepime 2 g IV q12 hour total 4 weeks until 09/16/2020-sent to top case assembler And midline was placed for this and will be replaced in 2 weeks for a total of 4-week treatment. Acute metabolic encephalopathy Sacral ulcer with presumed abscess S/P Debridement of sacral pressure ulcer--Post debridement measurements: 9.2 X 11.2 X 3.0 cm Necrotic Pressure ulcer- Unstageable-Wound culture growing gram-negative bacilli. Persistent Hypokalemia Neurogenic dysphagia Systemic inflammatory response syndrome without organ dysfunction, no evidence of sepsis Hyperosmolar with hypernatremia- RESOLVING Presumed vascular dementia Prior CVA with dysphagia as well as aphasia- Per staff that I spoke with Cerebral Atherosclerosis Severe Protein Calorie Malnutrition Bilateral lower extremity ulcers Seizure disorder Hypertension Depression Hyperlipidemia Total care with activity of daily living Disposition: [place] C[facility] Time spent for discharge: 35 mins Core Measure Documentation - Palliative Care Palliative Care/ Comfort Measures: Not Applicable - Core Measures Any of the following diagnoses?: none Exam - Physical Exam Narrative exam: General appearance: Present: not following any commands, chronically ill- appearing - EENT Eyes: Present: PERRL ENT: clear oral mucosa, unable to assess hearing, other (Oral mucosa dry) - Neck Neck: Present: supple - Respiratory Respiratory effort: normal Respiratory: bilateral: CTA - Cardiovascular Rhythm: regular Heart Sounds: Present: S1 & S2 - Extremities Extremities: no ischemia Peripheral Pulses: within normal limits - Abdominal General gastrointestinal: Present: PEG tube in place site is clean and dry soft, non-tender, non-distended, normal bowel sounds. Female genitourinary: Present: normal - Integumentary Integumentary: Present: Multiple ulceration including a sacral ulcer dressing in place. Dry, clammy, decreased turgor - Musculoskeletal Musculoskeletal: generalized weakness - Psychiatric Psychiatric: no appropriate mood/affect, no intact judgment & insight, no memory intact - Neurologic Neurologic: CNII-XII intact, no gait normal - Constitutional Vitals: Temp Pulse Resp BP Pulse Ox 98.2 F 57 L 20 117/83 97 08/21/20 06:11 08/21/20 10:29 08/21/20 06:11 08/21/20 06:11 08/21/20 06:11 Plan Activity: advance as tolerated, fall precautions Diet: per dietitian instruction Wound: per wound nurse instructions Special Instructions: record daily weights, record daily BP diary Additional Instructions: cefepime 2 g IV q12 hour total 4 weeks until 09/16/2020-sent to top case assembler. Patient will need midline replaced in 2 weeks for additional 2 weeks of therapy antibiotics. Follow up with: PRIMARY CARE, [Primary Care Provider] - 3-5 Days NARGIS TRUJILLO MD [Staff Physician] - 7 Days Prescriptions: Lansoprazole Solutab [Prevacid Solutab] 30 mg FEEDTUBE QDAY #30 tab.rapdis Sennosides Tab [Senokot] 17.2 mg PO DAILY PRN #30 tablet PRN Reason: Laxative Effect
--- NOTE | 2020-08-21 12:30 | Progress Note ---
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 Patient is confused with diminished cognition and is unable to provide history at the time of my evaluation. Patient history taken from EMS staff, ED staff, as well as custodial facility staff. As per staff the patient has experienced increased confusion, decreased verbalization, decreased interaction with staff, and decreased oral intake over the past 3 days. EMS run sheet is not available to me at this time but it was documented that the patient was found in distress prior to being transferred to our facility. Patient seen and evaluated in the emergency department. All lab and imaging studies reviewed. The patient was found to have urinary tract infection, metabolic encephalopathy, severe hyponatremia, as well as volume depletion secondary to free water deficit. Patient is currently Aphasic bedbound, nonambulatory with a palliative performance score of 30%. The admitting physician patient currently requires 6/6 assistance with all activities of daily living. Patient admitted to medical floor and initiated on IV antibiotic therapy as well as IV fluid resuscitation therapy. Nephrology team consulted in ED. No further history is obtainable. Patient has diminished cognition at the time of my evaluation but has a positive gag reflex and is able to protect her airway. retirement facility staff deny report of fever, chills, palpitations, productive cough, skin rash, recent ill contacts, or known exposure to COVID-19. Advanced care planning conducted in ED. Acute metabolic encephalopathy Sacral ulcer with presumed abscess S/P Debridement of sacral pressure ulcer--Post debridement measurements: 9.2 X 11.2 X 3.0 cm Necrotic Pressure ulcer- Unstageable-Wound culture growing gram-negative bacilli. Persistent Hypokalemia Systemic inflammatory response syndrome without organ dysfunction, no evidence of sepsis Hyperosmolar with hypernatremia- RESOLVING Presumed vascular dementia Prior CVA with dysphagia as well as aphasia- Per staff that I spoke with Cerebral Atherosclerosis Severe Protein Calorie Malnutrition Bilateral lower extremity ulcers Seizure disorder Hypertension Depression Hyperlipidemia Total care with activity of daily living Plan 08/20: Continue zosyn per ID, cultures WOUND Growing Proteous Mirabilus. Beta Hemolytic strep FOLLOW ID/SENSITIVITY. Will give additional Potassium today. Patient is for PEG Placement today -PEG held today secondary to severe Hypokalemia. Give extra K - Sodium has improved -Discussed with GI, PEG was done. - ID input noted, abx changes noted, Offloading as much as possible is main stay therapy. Poor prognosis for wound healing - Monitor sodium level as it continues to improve - ID consult, and Surgery consult for necrotic pressure ulcer 08/21: Patient clinically improved PEG tube is in place for diet. Arranging antibiotics anticipate 4 weeks of antibiotic therapy. PICC line to be placed. Discussed with case management facility is requesting a Covid test and also a proper observation prior to returning case management work on the process. I did discuss with the staff at the [facility] who states that the patient had stopped eating and they had actually discussed with the son who had recommended and agreed for a PEG tube placement. They were in the process of this prior to the patient being transferred to the hospital. Also on discussion with the nurse patient does have a sacral ulcer which was present on admission appears to have some abscess considering the foul order. We will start the patient on vancomycin. Will obtain wound culture will obtain wound care and based on their recommendation patient may benefit from debridement by surgery. Renal input appreciated Also prevention methodologies including every [address] Dobbhoff and start on tube feeds. Discussed and Updated patients son. He is ok with PEG placement DVT and GI prophylaxis Patient is chronically ill with acute pathology that needs immediate intervention and will require continued inpatient stay All available imaging studies have been reviewed by me CT of the head shows no current acute pathology. History Interval history: Patient seen and examined remains nonverbal, patient obtain PEG tube and is clinically stable. Hospitalist Physical - Physical exam Narrative exam: General appearance: Present: not following any commands, chronically ill-appe aring - EENT Eyes: Present: PERRL ENT: clear oral mucosa, unable to assess hearing, other (Oral mucosa dry) - Neck Neck: Present: supple - Respiratory Respiratory effort: normal Respiratory: bilateral: CTA - Cardiovascular Rhythm: regular Heart Sounds: Present: S1 & S2 - Extremities Extremities: no ischemia Peripheral Pulses: within normal limits - Abdominal General gastrointestinal: Present: PEG tube in place site is clean and dry soft, non-tender, non-distended, normal bowel sounds. Female genitourinary: Present: normal - Integumentary Integumentary: Present: Multiple ulceration including a sacral ulcer dressing in place. Dry, clammy, decreased turgor - Musculoskeletal Musculoskeletal: generalized weakness - Psychiatric Psychiatric: no appropriate mood/affect, no intact judgment & insight, no memory intact - Neurologic Neurologic: CNII-XII intact, no gait normal - Constitutional Vitals: Temp Pulse Resp BP Pulse Ox 98.2 F 57 L 20 117/83 97 08/21/20 06:11 08/21/20 10:29 08/21/20 06:11 08/21/20 06:11 08/21/20 06:11 General appearance: Present: mild distress HEART Score - HEART Score Troponin: Troponin T < 0.010 ng/mL (0.00-0.029) 08/16/20 16:58 Troponin T < 0.010 ng/mL (0.00-0.029) 08/16/20 16:58 Results - Labs CBC & Chem 7: 08/19/20 04:38 08/21/20 04:45 Labs: Laboratory Last Values WBC 10.6 K/mm3 (4.5-11.0) 08/19/20 04:38 RBC 2.82 M/mm3 (3.65-5.03) L 08/19/20 04:38 Hgb 8.0 gm/dl (10.1-14.3) L 08/19/20 04:38 Hct 25.9 % (30.3-42.9) L 08/19/20 04:38 MCV 92 fl (79-97) 08/19/20 04:38 MCH 29 pg (28-32) 08/19/20 04:38 MCHC 31 % (30-34) 08/19/20 04:38 RDW 17.8 % (13.2-15.2) H 08/19/20 04:38 Plt Count 240 K/mm3 (140-440) 08/19/20 04:38 Lymph % (Auto) 11.7 % (13.4-35.0) L 08/16/20 16:58 Campbell % (Auto) 6.1 % (0.0-7.3) 08/16/20 16:58 Eos % (Auto) 1.0 % (0.0-4.3) 08/16/20 16:58 Baso % (Auto) 0.4 % (0.0-1.8) 08/16/20 16:58 Lymph # (Auto) 1.3 K/mm3 (1.2-5.4) 08/16/20 16:58 Campbell # (Auto) 0.7 K/mm3 (0.0-0.8) 08/16/20 16:58 Eos # (Auto) 0.1 K/mm3 (0.0-0.4) 08/16/20 16:58 Baso # (Auto) 0.0 K/mm3 (0.0-0.1) 08/16/20 16:58 Seg Neutrophils % 80.8 % (40.0-70.0) H 08/16/20 16:58 Seg Neutrophils # 8.8 K/mm3 (1.8-7.7) H 08/16/20 16:58 PT 15.7 Sec. (12.2-14.9) H 08/16/20 16:58 INR 1.22 (0.87-1.13) H 08/16/20 16:58 Sodium 139 mmol/L (137-145) 08/21/20 04:45 Potassium 3.5 mmol/L (3.6-5.0) L 08/21/20 04:45 Chloride 109.7 mmol/L (98-107) H 08/21/20 04:45 Carbon Dioxide 21 mmol/L (22-30) L 08/21/20 04:45 Anion Gap 12 mmol/L 08/21/20 04:45 BUN 4 mg/dL (7-17) L 08/21/20 04:45 Creatinine 0.3 mg/dL (0.6-1.2) L 08/21/20 04:45 Estimated GFR > 60 ml/min 08/21/20 04:45 BUN/Creatinine Ratio 13 % 08/21/20 04:45 Glucose 100 mg/dL (65-100) 08/21/20 04:45 POC Glucose 117 mg/dL (70-105) H 08/21/20 07:17 Calcium 7.9 mg/dL (8.4-10.2) L 08/21/20 04:45 Magnesium 2.50 mg/dL (1.7-2.3) H 08/16/20 16:58 Total Creatine Kinase 37 units/L (30-135) 08/16/20 16:58 Troponin T < 0.010 ng/mL (0.00-0.029) 08/16/20 16:58 Troponin T < 0.010 ng/mL (0.00-0.029) 08/16/20 16:58 Urine Color Yellow (Yellow) 08/16/20 Unknown Urine Turbidity Clear (Clear) 08/16/20 Unknown Urine pH 5.0 (5.0-7.0) 08/16/20 Unknown Ur Specific Leslie 1.027 (1.003-1.030) 08/16/20 Unknown Urine Protein <15 mg/dl mg/dL (Negative) 08/16/20 Unknown Urine Glucose (UA) Neg mg/dL (Negative) 08/16/20 Unknown Urine Ketones Tr mg/dL (Negative) 08/16/20 Unknown Urine Blood Neg (Negative) 08/16/20 Unknown Urine Nitrite Neg (Negative) 08/16/20 Unknown Urine Bilirubin Neg (Negative) 08/16/20 Unknown Urine Urobilinogen 4.0 mg/dL (<2.0) 08/16/20 Unknown Ur Leukocyte Esterase Sm (Negative) 08/16/20 Unknown Urine WBC (Auto) 10.0 /HPF (0.0-6.0) H 08/16/20 Unknown Urine RBC (Auto) 1.0 /HPF (0.0-6.0) 08/16/20 Unknown U Epithel Cells (Auto) 1.0 /HPF (0-13.0) 08/16/20 Unknown Urine Bacteria (Auto) 3+ /HPF (Negative) 08/16/20 Unknown Urine Mucus Few /HPF 08/16/20 Unknown Microbiology: Microbiology 08/16/20 16:58 Peripheral/Venous Blood Culture - Preliminary NO GROWTH AFTER 4 DAYS 08/16/20 17:05 Peripheral/Venous Blood Culture - Preliminary NO GROWTH AFTER 4 DAYS 08/17/20 17:09 Buttock Wound Culture - Final Proteus Mirabilis Beta Hemoltyic Strep Group G Sullivan/IV: Voiding Method Incontinent IV Catheter Type [Right Hand] Peripheral IV IV Catheter Type [Left Hand] INT / Saline Lock Active Medications - Current Medications Current Medications: Generic Name Dose Route Start Last Admin Trade Name Freq PRN Reason Stop Dose Admin Acetaminophen 650 mg 08/16/20 18:17 Tylenol PO Q4H PRN Pain MILD(1-3)/Fever >100.5/SAWYER Acetaminophen 650 mg 08/16/20 22:00 08/21/20 10:31 Tylenol PO 650 mg BID RACHEL Administration Albuterol 2.5 mg 08/16/20 18:17 Proventil IH Q4HRT PRN Shortness Of Breath Amlodipine Besylate 7.5 mg 08/17/20 18:00 08/21/20 10:27 Amlodipine PO Not Given QDAY RACHEL Lipase/Protease/Amylase 1 each 08/18/20 10:51 Pancreaze 10,500 Unit FEEDTUBE PRN PRN For Clogged Feeding Tube Aspirin 81 mg 08/17/20 10:00 08/21/20 10:31 Baby Aspirin PO 81 mg QDAY RACHEL Administration Atorvastatin Calcium 80 mg 08/16/20 22:00 08/20/20 21:45 Lipitor PO 80 mg QHS RACHEL Administration Baclofen 5 mg 08/16/20 22:00 08/20/20 21:44 Lioresal PO 5 mg Q8HR RACHEL Administration Carvedilol 25 mg 08/16/20 22:00 08/21/20 10:29 Coreg PO Not Given BID RACHEL Clonidine HCl 0.3 mg 08/16/20 19:00 08/16/20 22:30 Catapres-Tts Patch TD 0.3 mg Mo RACHEL Administration Dextrose 50 ml 08/16/20 19:05 D50w (25gm) Syringe IV Q30MIN PRN Hypoglycemia Protocol Donepezil HCl 10 mg 08/16/20 22:00 08/20/20 21:58 Aricept PO 10 mg QHS RACHEL Administration Heparin Sodium (Porcine) 5,000 unit 08/16/20 22:00 08/21/20 10:32 Heparin SUB-Q 5,000 unit Q12HR RACHEL Administration Hydralazine HCl 50 mg 08/16/20 22:00 08/21/20 10:33 Apresoline PO Not Given Q8HR RACHEL Levetiracetam 500 mg/ Dextrose 105 mls @ 400 mls/hr 08/19/20 22:00 08/21/20 11:19 IV 400 mls/hr Q12HR RACHEL Administration Sodium Chloride 1,000 mls @ 50 mls/hr 08/20/20 13:00 08/20/20 21:59 Nacl 0.9% 1000 Ml IV 50 mls/hr DIRECT RACHEL Administration Sodium Chloride 500 mls @ 50 mls/hr 08/20/20 14:00 08/20/20 13:50 Nacl 0.9% 500 Ml IV 08/21/20 13:59 50 mls/hr DIRECT RACHEL Administration Cefepime HCl 2 gm in 100 mls @ 200 mls/hr 08/20/20 22:00 08/21/20 10:32 Cefepime/Ns 2 Gm/100 Ml IV 200 mls/hr Q12HR RACHEL Administration Protocol Insulin Human Lispro 0 unit 08/16/20 20:00 08/21/20 10:18 Humalog SUB-Q Not Given Q6H RACHEL Protocol Lansoprazole 30 mg 08/19/20 13:00 08/21/20 10:31 Prevacid Solutab FEEDTUBE 30 mg QDAY RACHEL Administration Losartan Potassium 50 mg 08/17/20 10:00 08/21/20 10:29 Cozaar PO Not Given QDAY RACHEL Melatonin 5 mg 08/16/20 22:00 08/20/20 21:43 Melatonin PO 5 mg QHS RACHEL Administration Ondansetron HCl 4 mg 08/16/20 18:17 Zofran IV Q8H PRN Nausea And Vomiting Polyethylene Glycol 17 gm 08/17/20 10:00 08/21/20 10:32 Miralax 3350 PO 17 gm QDAY RACHEL Administration Senna 17.2 mg 08/16/20 18:42 08/18/20 12:57 Senokot PO 17.2 mg DAILY PRN Administration Laxative Effect Sertraline HCl 200 mg 08/17/20 10:00 08/21/20 10:32 Zoloft PO 200 mg QAM RACHEL Administration Simple Syrup 15 ml 08/18/20 10:51 Simple Syrup FEEDTUBE PRN PRN Hypoglycemia Simple Syrup 30 ml 08/18/20 10:51 Simple Syrup FEEDTUBE PRN PRN Hypoglycemia Sodium Bicarbonate 325 mg 08/18/20 10:51 Sodium Bicarbonate FEEDTUBE PRN PRN For Clogged Feeding Tube Sodium Chloride 10 ml 08/16/20 22:00 08/21/20 11:19 Sodium Chloride Flush Syringe 10 Ml IV 10 ml BID RACHEL Administration Sodium Chloride 10 ml 08/16/20 18:17 Sodium Chloride Flush Syringe 10 Ml IV PRN PRN LINE FLUSH Sodium Hypochlorite 1 applic 08/18/20 22:00 08/21/20 10:34 Dakin's Half Strength TP 1 applicator BID RACHEL Administration Nutrition/Malnutrition Assess - Dietary Evaluation Nutrition/Malnutrition Findings: Nutrition Notes Start: 08/17/20 14:55 Freq: Status: Active Protocol: Document 08/20/20 11:17 (Rec: 08/20/20 11:30 [id number]) Nutrition Notes Need for Assessment generated from: MD Order Initial or Follow up Reassessment Current Diagnosis Decubitus(Pressure Ulcer), Hypertension,Stroke Other Pertinent Diagnosis FTT, UTI, Seizure, depression, dehydration, dysphagia, hypernatremia, Current Diet NPO Labs/Tests K 3.4 Cr 0.4 Pertinent Medications KCl 10 mEq Height 5 ft 7 in Weight 53.4 kg [place] Body Weight (kg) 61.36 BMI 18.4 Weight change and time frame Wt change likely due to bedscale error. Weight Status Underweight Subjective/Other Information MD order for TF. Pt received PEG this AM. Pt unable to communicate. Percent of energy/protein needs met: 0%/0% Burn Absent Trauma Absent Difficulty In Swallowing Food Allergy No Current % PO Negligible Minimum of two criteria No Energy Intake (severe) < or equal to 50% Estimated Energy Requirement > or equal to 5 days Muscle Mass Mild Depletion (non-severe) #3 Nutrition Diagnosis Malnutrition Etiology dementia As Evidenced by Signs and Symptoms muscle wasting, pt hasn't eaten in 6 days #2 Nutrition Diagnosis Increased nutrient needs ( specify in comment below) Comments: Protein Diagnosis Progress(for reassessment Continues documentation) #1 Nutrition Diagnosis Inadequate oral intake Diagnosis Progress(for reassessment Continues documentation) Is patient on ventilator? No Is Patient Ambulatory and/or Out of Bed No REE-([facility]-confined to bed) 1386.780 Kcal/Kg value to use for calculation 29 Approximate Energy Requirements Using 1549 kcal/Kg Calculation Used for Recommendations Kcal/kg Additional Notes Protein: 1.25-1.5 g/kg (63-75g ) Fluid: 1 ml/kcal Nutrition Intervention Change Diet Order: Advance from NPO to TF when medically able Nutrition Support: Jevity 1.2 at 50 ml/hr (goal rate) Flush 75 ml q4h Kcal 1,440 Protein (gm) 67 Fluid (mL) 968 Fiber (gm) 22 Goal #1 Meet 75% of energy and protein needs with TF Anticipated Discharge Needs: Jevity 1.2: 5 cans (1185 ml) per day. Water flush 75 ml before and after each bolus. Breakfast: 1 can (237 ml) Lunch: 2 cans (474 ml) Dinner 2 cans (474 ml) Follow-Up By: 08/24/20 Additional Comments FU for TF start/tolerance
[2020-08-21 14:58] LABS: Blood Urea Nitrogen 5 mg/dL (7-17); Calcium 7.8 mg/dL (8.4-10.2); Hemolysis Index 6
[2020-08-21 14:59] LABS: BUN/Creatinine Ratio 17
[2020-08-21] MEDS: BACLOFEN 10 MG TAB PO SCH ×3 (16:04→21:57)
--- NOTE | 2020-08-21 16:40 | Gastroenterology Progress Note ---
Assessment and Plan - Patient Problems (1) Neurogenic dysphagia Current Visit: Yes Status: Acute Plan to address problem: s/p EGD with PEG on 08/20/2020. Outer bumper loosened by bedside. Continue with tube feeds. Keep head of bed elevated Aspiration precautions Will sign off. Subjective Date of service: 08/21/20 Principal diagnosis: Neurogenic Dysphagia Interval history: Patient underwent EGD with PEG placement on 07/20/2020. Tolerating tube feeds. Objective - Constitutional Vitals: Temp Pulse Resp BP Pulse Ox 98.6 F 72 18 138/96 97 08/21/20 12:59 08/21/20 12:59 08/21/20 12:59 08/21/20 12:59 08/21/20 12:59 General appearance: no acute distress - Respiratory Respiratory effort: normal - Cardiovascular Rhythm: regular Heart Sounds: Present: S1 & S2 - Gastrointestinal General gastrointestinal: Present: soft, non-tender, non-distended, normal bowel sounds, other (PEG in place, bumper loosened) - Labs CBC & Chem 7: 08/19/20 04:38 08/21/20 13:55 Labs: Laboratory Results - last 24 hr 08/20/20 08/21/20 08/21/20 23:31 04:45 07:17 Sodium 139 Potassium 3.5 L Chloride 109.7 H Carbon Dioxide 21 L Anion Gap 12 BUN 4 L Creatinine 0.3 L Estimated GFR > 60 BUN/Creatinine Ratio 13 Glucose 100 POC Glucose 112 H 117 H Calcium 7.9 L 08/21/20 08/21/20 08/21/20 13:08 13:55 16:01 Sodium 139 Potassium 3.8 Chloride 110.2 H Carbon Dioxide 21 L Anion Gap 12 BUN 5 L Creatinine 0.3 L Estimated GFR > 60 BUN/Creatinine Ratio 17 Glucose 121 H POC Glucose 126 H 120 H Calcium 7.8 L
[2020-08-21] MEDS: MELATONIN 5 MG TAB PO SCH (21:56)
[2020-08-21] MEDS: DONEPEZIL 10 MG TAB PO SCH (21:57)
[2020-08-22] MEDS: INSULIN LISPRO 100 UNIT/ML VIAL 3 mL SUB-Q SCH ×4 (03:08→20:00)
[2020-08-22] MEDS: hydrALAZINE 25 MG TAB PO SCH ×2 (05:54→21:13)
[2020-08-22] MEDS: BACLOFEN 10 MG TAB PO SCH ×2 (05:56→21:12)
[2020-08-22] MEDS: CEFEPIME/NS 2 GM/100 ML 2 GM/100 ML BAG IV SCH ×2 (11:47→21:11)
[2020-08-22] MEDS: levETIRAcetam 500 MG in DEXTROSE 5% IN WATER 100 ML IV SCH ×2 (11:47→21:11)
[2020-08-22] MEDS: POLYETHYLENE GLYCOL 3350 17 GM POWDER PO SCH (11:50)
[2020-08-22] MEDS: ACETAMINOPHEN 325 MG TAB PO SCH ×2 (11:50→21:11)
[2020-08-22] MEDS: ASPIRIN 81 MG TAB CHEW PO SCH (11:51)
[2020-08-22] MEDS: SERTRALINE 100 MG TAB PO SCH (11:51)
[2020-08-22] MEDS: LANSOPRAZOLE 30 MG SOLUTAB FEEDTUBE SCH (11:52)
[2020-08-22] MEDS: HEPARIN 5,000 UNIT/1 ML VIAL SUB-Q SCH ×2 (11:52→21:13)
[2020-08-22] MEDS: amLODIPine 5 MG TAB PO SCH (12:04)
[2020-08-22] MEDS: LOSARTAN 50 MG TAB PO SCH (12:04)
[2020-08-22] MEDS: carvediloL 25 MG TAB PO SCH ×2 (12:05→21:12)
--- NOTE | 2020-08-22 13:10 | Progress Note ---
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 Patient is confused with diminished cognition and is unable to provide history at the time of my evaluation. Patient history taken from EMS staff, ED staff, as well as correction facility staff. As per staff the patient has experienced increased confusion, decreased verbalization, decreased interaction with staff, and decreased oral intake over the past 3 days. EMS run sheet is not available to me at this time but it was documented that the patient was found in distress prior to being transferred to our facility. Patient seen and evaluated in the emergency department. All lab and imaging studies reviewed. The patient was found to have urinary tract infection, metabolic encephalopathy, severe hyponatremia, as well as volume depletion secondary to free water deficit. Patient is currently Aphasic bedbound, nonambulatory with a palliative performance score of 30%. The admitting physician patient currently requires 6/6 assistance with all activities of daily living. Patient admitted to medical floor and initiated on IV antibiotic therapy as well as IV fluid resuscitation therapy. Nephrology team consulted in ED. No further history is obtainable. Patient has diminished cognition at the time of my evaluation but has a positive gag reflex and is able to protect her airway. [facility] facility staff deny report of fever, chills, palpitations, productive cough, skin rash, recent ill contacts, or known exposure to COVID-19. Advanced care planning conducted in ED. Acute metabolic encephalopathy Sacral ulcer with presumed abscess S/P Debridement of sacral pressure ulcer--Post debridement measurements: 9.2 X 11.2 X 3.0 cm Necrotic Pressure ulcer- Unstageable-Wound culture growing gram-negative bacilli. Persistent Hypokalemia Systemic inflammatory response syndrome without organ dysfunction, no evidence of sepsis Hyperosmolar with hypernatremia- RESOLVING Presumed vascular dementia Prior CVA with dysphagia as well as aphasia- Per staff that I spoke with Cerebral Atherosclerosis Severe Protein Calorie Malnutrition Bilateral lower extremity ulcers Seizure disorder Hypertension Depression Hyperlipidemia Total care with activity of daily living Plan 08/20: Continue zosyn per ID, cultures WOUND Growing Proteous Mirabilus. Beta Hemolytic strep FOLLOW ID/SENSITIVITY. Will give additional Potassium today. Patient is for PEG Placement today -PEG held today secondary to severe Hypokalemia. Give extra K - Sodium has improved -Discussed with GI, PEG was done. - ID input noted, abx changes noted, Offloading as much as possible is main stay therapy. Poor prognosis for wound healing - Monitor sodium level as it continues to improve - ID consult, and Surgery consult for necrotic pressure ulcer 08/21: Patient clinically improved PEG tube is in place for diet. Arranging antibiotics anticipate 4 weeks of antibiotic therapy. PICC line to be placed. Discussed with case management facility is requesting a Covid test and also a proper observation prior to returning case management work on the process. 08/22: Continue supportive care pending discharge I did discuss with the staff at the senior living who states that the patient had stopped eating and they had actually discussed with the son who had recommended and agreed for a PEG tube placement. They were in the process of this prior to the patient being transferred to the hospital. Also on discussion with the nurse patient does have a sacral ulcer which was present on admission appears to have some abscess considering the foul order. We will start the patient on vancomycin. Will obtain wound culture will obtain wound care and based on their recommendation patient may benefit from debridement by surgery. Renal input appreciated Also prevention methodologies including every [address] Dobbhoff and start on tube feeds. Discussed and Updated patients son. He is ok with PEG placement DVT and GI prophylaxis Patient is chronically ill with acute pathology that needs immediate intervention and will require continued inpatient stay All available imaging studies have been reviewed by me CT of the head shows no current acute pathology. History Interval history: Patient seen and examined remains nonverbal, tolerating tube feeds Hospitalist Physical - Physical exam Narrative exam: General appearance: Present: not following any commands, chronically ill- appearing - EENT Eyes: Present: PERRL ENT: clear oral mucosa, unable to assess hearing, other (Oral mucosa dry) - Neck Neck: Present: supple - Respiratory Respiratory effort: normal Respiratory: bilateral: CTA - Cardiovascular Rhythm: regular Heart Sounds: Present: S1 & S2 - Extremities Extremities: no ischemia Peripheral Pulses: within normal limits - Abdominal General gastrointestinal: Present: PEG tube in place site is clean and dry soft, non-tender, non-distended, normal bowel sounds. Female genitourinary: Present: normal - Integumentary Integumentary: Present: Multiple ulceration including a sacral ulcer dressing in place. Dry, clammy, decreased turgor - Musculoskeletal Musculoskeletal: generalized weakness - Psychiatric Psychiatric: no appropriate mood/affect, no intact judgment & insight, no memory intact - Neurologic Neurologic: CNII-XII intact, no gait normal - Constitutional Vitals: Temp Pulse Resp BP Pulse Ox 98.6 F 70 18 127/72 99 08/22/20 11:00 08/22/20 12:05 08/22/20 11:00 08/22/20 12:05 08/22/20 11:00 General appearance: Present: mild distress HEART Score - HEART Score Troponin: Troponin T < 0.010 ng/mL (0.00-0.029) 08/16/20 16:58 Troponin T < 0.010 ng/mL (0.00-0.029) 08/16/20 16:58 Results - Labs CBC & Chem 7: 08/19/20 04:38 08/21/20 13:55 Labs: Laboratory Last Values WBC 10.6 K/mm3 (4.5-11.0) 08/19/20 04:38 RBC 2.82 M/mm3 (3.65-5.03) L 08/19/20 04:38 Hgb 8.0 gm/dl (10.1-14.3) L 08/19/20 04:38 Hct 25.9 % (30.3-42.9) L 08/19/20 04:38 MCV 92 fl (79-97) 08/19/20 04:38 MCH 29 pg (28-32) 08/19/20 04:38 MCHC 31 % (30-34) 08/19/20 04:38 RDW 17.8 % (13.2-15.2) H 08/19/20 04:38 Plt Count 240 K/mm3 (140-440) 08/19/20 04:38 Lymph % (Auto) 11.7 % (13.4-35.0) L 08/16/20 16:58 [place] % (Auto) 6.1 % (0.0-7.3) 08/16/20 16:58 Eos % (Auto) 1.0 % (0.0-4.3) 08/16/20 16:58 Baso % (Auto) 0.4 % (0.0-1.8) 08/16/20 16:58 Lymph # (Auto) 1.3 K/mm3 (1.2-5.4) 08/16/20 16:58 [place] # (Auto) 0.7 K/mm3 (0.0-0.8) 08/16/20 16:58 Eos # (Auto) 0.1 K/mm3 (0.0-0.4) 08/16/20 16:58 Baso # (Auto) 0.0 K/mm3 (0.0-0.1) 08/16/20 16:58 Seg Neutrophils % 80.8 % (40.0-70.0) H 08/16/20 16:58 Seg Neutrophils # 8.8 K/mm3 (1.8-7.7) H 08/16/20 16:58 PT 15.7 Sec. (12.2-14.9) H 08/16/20 16:58 INR 1.22 (0.87-1.13) H 08/16/20 16:58 Sodium 139 mmol/L (137-145) 08/21/20 13:55 Potassium 3.8 mmol/L (3.6-5.0) 08/21/20 13:55 Chloride 110.2 mmol/L (98-107) H 08/21/20 13:55 Carbon Dioxide 21 mmol/L (22-30) L 08/21/20 13:55 Anion Gap 12 mmol/L 08/21/20 13:55 BUN 5 mg/dL (7-17) L 08/21/20 13:55 Creatinine 0.3 mg/dL (0.6-1.2) L 08/21/20 13:55 Estimated GFR > 60 ml/min 08/21/20 13:55 BUN/Creatinine Ratio 17 % 08/21/20 13:55 Glucose 121 mg/dL (65-100) H 08/21/20 13:55 POC Glucose 144 mg/dL (70-105) H 08/22/20 05:19 Calcium 7.8 mg/dL (8.4-10.2) L 08/21/20 13:55 Magnesium 2.50 mg/dL (1.7-2.3) H 08/16/20 16:58 Total Creatine Kinase 37 units/L (30-135) 08/16/20 16:58 Troponin T < 0.010 ng/mL (0.00-0.029) 08/16/20 16:58 Troponin T < 0.010 ng/mL (0.00-0.029) 08/16/20 16:58 Urine Color Yellow (Yellow) 08/16/20 Unknown Urine Turbidity Clear (Clear) 08/16/20 Unknown Urine pH 5.0 (5.0-7.0) 08/16/20 Unknown Ur Specific [place] 1.027 (1.003-1.030) 08/16/20 Unknown Urine Protein <15 mg/dl mg/dL (Negative) 08/16/20 Unknown Urine Glucose (UA) Neg mg/dL (Negative) 08/16/20 Unknown Urine Ketones Tr mg/dL (Negative) 08/16/20 Unknown Urine Blood Neg (Negative) 08/16/20 Unknown Urine Nitrite Neg (Negative) 08/16/20 Unknown Urine Bilirubin Neg (Negative) 08/16/20 Unknown Urine Urobilinogen 4.0 mg/dL (<2.0) 08/16/20 Unknown Ur Leukocyte Esterase Sm (Negative) 08/16/20 Unknown Urine WBC (Auto) 10.0 /HPF (0.0-6.0) H 08/16/20 Unknown Urine RBC (Auto) 1.0 /HPF (0.0-6.0) 08/16/20 Unknown U Epithel Cells (Auto) 1.0 /HPF (0-13.0) 08/16/20 Unknown Urine Bacteria (Auto) 3+ /HPF (Negative) 08/16/20 Unknown Urine Mucus Few /HPF 08/16/20 Unknown Coronavirus (PCR) Negative (Negative) 08/21/20 10:00 Microbiology: Microbiology 08/16/20 16:58 Peripheral/Venous Blood Culture - Final NO GROWTH AFTER 5 DAYS 08/16/20 17:05 Peripheral/Venous Blood Culture - Final NO GROWTH AFTER 5 DAYS Sullivan/IV: Voiding Method Incontinent IV Catheter Type [Right Hand] Peripheral IV IV Catheter Type [Left Hand] INT / Saline Lock Active Medications - Current Medications Current Medications: Generic Name Dose Route Start Last Admin Trade Name Freq PRN Reason Stop Dose Admin Acetaminophen 650 mg 08/16/20 18:17 Tylenol PO Q4H PRN Pain MILD(1-3)/Fever >100.5/SAWYER Acetaminophen 650 mg 08/16/20 22:00 08/22/20 11:50 Tylenol PO 650 mg BID RACHEL Administration Albuterol 2.5 mg 08/16/20 18:17 Proventil IH Q4HRT PRN Shortness Of Breath Amlodipine Besylate 7.5 mg 08/17/20 18:00 08/22/20 12:04 Amlodipine PO 7.5 mg QDAY RACHEL Administration Lipase/Protease/Amylase 1 each 08/18/20 10:51 Pancreaze 10,500 Unit FEEDTUBE PRN PRN For Clogged Feeding Tube Aspirin 81 mg 08/17/20 10:00 08/22/20 11:51 Baby Aspirin PO 81 mg QDAY RACHEL Administration Atorvastatin Calcium 80 mg 08/16/20 22:00 08/21/20 21:56 Lipitor PO 80 mg QHS RACHEL Administration Baclofen 5 mg 08/16/20 22:00 08/22/20 05:56 Lioresal PO 5 mg Q8HR RACHEL Administration Carvedilol 25 mg 08/16/20 22:00 08/22/20 12:05 Coreg PO 25 mg BID RACHEL Administration Clonidine HCl 0.3 mg 08/16/20 19:00 08/16/20 22:30 Catapres-Tts Patch TD 0.3 mg Mo RACHEL Administration Dextrose 50 ml 08/16/20 19:05 D50w (25gm) Syringe IV Q30MIN PRN Hypoglycemia Protocol Donepezil HCl 10 mg 08/16/20 22:00 08/21/20 21:57 Aricept PO 10 mg QHS RACHEL Administration Heparin Sodium (Porcine) 5,000 unit 08/16/20 22:00 08/22/20 11:52 Heparin SUB-Q 5,000 unit Q12HR RACHEL Administration Hydralazine HCl 50 mg 08/16/20 22:00 08/22/20 05:54 Apresoline PO Not Given Q8HR RACHEL Levetiracetam 500 mg/ Dextrose 105 mls @ 400 mls/hr 08/19/20 22:00 08/22/20 11:47 IV 400 mls/hr Q12HR RACHEL Administration Sodium Chloride 1,000 mls @ 50 mls/hr 08/20/20 13:00 08/20/20 21:59 Nacl 0.9% 1000 Ml IV 50 mls/hr DIRECT RACHEL Administration Cefepime HCl 2 gm in 100 mls @ 200 mls/hr 08/20/20 22:00 08/22/20 11:47 Cefepime/Ns 2 Gm/100 Ml IV 200 mls/hr Q12HR RACHEL Administration Protocol Insulin Human Lispro 0 unit 08/16/20 20:00 08/22/20 07:30 Humalog SUB-Q Not Given Q6H RACHEL Protocol Lansoprazole 30 mg 08/19/20 13:00 08/22/20 11:52 Prevacid Solutab FEEDTUBE 30 mg QDAY RACHEL Administration Losartan Potassium 50 mg 08/17/20 10:00 08/22/20 12:04 Cozaar PO 50 mg QDAY RACHEL Administration Melatonin 5 mg 08/16/20 22:00 08/21/20 21:56 Melatonin PO 5 mg QHS RACHEL Administration Ondansetron HCl 4 mg 08/16/20 18:17 Zofran IV Q8H PRN Nausea And Vomiting Polyethylene Glycol 17 gm 08/17/20 10:00 08/22/20 11:50 Miralax 3350 PO 17 gm QDAY RACHEL Administration Senna 17.2 mg 08/16/20 18:42 08/18/20 12:57 Senokot PO 17.2 mg DAILY PRN Administration Laxative Effect Sertraline HCl 200 mg 08/17/20 10:00 08/22/20 11:51 Zoloft PO 200 mg QAM RACHEL Administration Simple Syrup 15 ml 08/18/20 10:51 Simple Syrup FEEDTUBE PRN PRN Hypoglycemia Simple Syrup 30 ml 08/18/20 10:51 Simple Syrup FEEDTUBE PRN PRN Hypoglycemia Sodium Bicarbonate 325 mg 08/18/20 10:51 Sodium Bicarbonate FEEDTUBE PRN PRN For Clogged Feeding Tube Sodium Chloride 10 ml 08/16/20 22:00 08/22/20 12:06 Sodium Chloride Flush Syringe 10 Ml IV 10 ml BID RACHEL Administration Sodium Chloride 10 ml 08/16/20 18:17 Sodium Chloride Flush Syringe 10 Ml IV PRN PRN LINE FLUSH Sodium Hypochlorite 1 applic 08/18/20 22:00 08/21/20 21:58 Dakin's Half Strength TP 1 applicator BID RACHEL Administration Nutrition/Malnutrition Assess - Dietary Evaluation Nutrition/Malnutrition Findings: Nutrition Notes Start: 08/17/20 14:55 Freq: Status: Active Protocol: Document 08/20/20 11:17 JOSE E (Rec: 08/20/20 11:30 JOSE E [id number]) Nutrition Notes Need for Assessment generated from: MD Order Initial or Follow up Reassessment Current Diagnosis Decubitus(Pressure Ulcer), Hypertension,Stroke Other Pertinent Diagnosis FTT, UTI, Seizure, depression, dehydration, dysphagia, hypernatremia, Current Diet NPO Labs/Tests K 3.4 Cr 0.4 Pertinent Medications KCl 10 mEq Height 5 ft 7 in Weight 53.4 kg [place] Body Weight (kg) 61.36 BMI 18.4 Weight change and time frame Wt change likely due to bedscale error. Weight Status Underweight Subjective/Other Information MD order for TF. Pt received PEG this AM. Pt unable to communicate. Percent of energy/protein needs met: 0%/0% Burn Absent Trauma Absent Difficulty In Swallowing Food Allergy No Current % PO Negligible Minimum of two criteria No Energy Intake (severe) < or equal to 50% Estimated Energy Requirement > or equal to 5 days Muscle Mass Mild Depletion (non-severe) #3 Nutrition Diagnosis Malnutrition Etiology dementia As Evidenced by Signs and Symptoms muscle wasting, pt hasn't eaten in 6 days #2 Nutrition Diagnosis Increased nutrient needs ( specify in comment below) Comments: Protein Diagnosis Progress(for reassessment Continues documentation) #1 Nutrition Diagnosis Inadequate oral intake Diagnosis Progress(for reassessment Continues documentation) Is patient on ventilator? No Is Patient Ambulatory and/or Out of Bed No REE-([facility]-confined to bed) 1386.780 Kcal/Kg value to use for calculation 29 Approximate Energy Requirements Using 1549 kcal/Kg Calculation Used for Recommendations Kcal/kg Additional Notes Protein: 1.25-1.5 g/kg (63-75g ) Fluid: 1 ml/kcal Nutrition Intervention Change Diet Order: Advance from NPO to TF when medically able Nutrition Support: Jevity 1.2 at 50 ml/hr (goal rate) Flush 75 ml q4h Kcal 1,440 Protein (gm) 67 Fluid (mL) 968 Fiber (gm) 22 Goal #1 Meet 75% of energy and protein needs with TF Anticipated Discharge Needs: Jevity 1.2: 5 cans (1185 ml) per day. Water flush 75 ml before and after each bolus. Breakfast: 1 can (237 ml) Lunch: 2 cans (474 ml) Dinner 2 cans (474 ml) Follow-Up By: 08/24/20 Additional Comments FU for TF start/tolerance
--- NOTE | 2020-08-22 14:57 | Progress Note ---
Assessment and Plan - Patient Problems (1) Hyperosmolality with hypernatremia Current Visit: Yes Status: Acute Plan to address problem: Sodium improved back to normal. Continue free water replacement. Follow-up sodium (2) Hypokalemia Current Visit: Yes Status: Acute Plan to address problem: Potassium improved but still low normal. Supplement potassium and follow-up levels (3) Neurogenic dysphagia Current Visit: Yes Status: Acute Plan to address problem: Status post PEG. Feeding per GI (4) Urinary tract infection Current Visit: Yes Status: Acute Plan to address problem: Continue antibiotics Subjective Date of service: 08/22/20 Principal diagnosis: Neurogenic Dysphagia Interval history: Patient seen lying in bed. She is nonverbal. She is awake and follows my movements in the room Objective - Exam Narrative Exam: Middle-aged -[place] female lying in bed in no acute distress HEENT: NCAT, pink oral mucous membrane Neck: Supple, no venous distention CVS: S1S2 RRR with no murmur, rub or gallop Chest: Clear to auscultation Abdomen: Protuberant, soft, nontender, no organomegaly, bowel sounds are present Extremities: No edema Neuro: Awake, alert, nonverbal no focal deficits - Vital Signs Vital signs: Vital Signs - 12hr 08/22/20 08/22/20 08/22/20 04:50 11:00 12:04 Temperature 97.8 F 98.6 F Pulse Rate 60 70 70 Respiratory 20 18 Rate Blood Pressure 119/75 127/72 Blood Pressure 127/85 [Left] O2 Sat by Pulse 98 99 Oximetry 08/22/20 12:05 Temperature Pulse Rate 70 Respiratory Rate Blood Pressure 127/72 Blood Pressure [Left] O2 Sat by Pulse Oximetry - Lab 08/19/20 04:38 08/21/20 13:55 Most recent lab results Calcium 7.8 mg/dL (8.4-10.2) L 08/21/20 13:55 Magnesium 2.50 mg/dL (1.7-2.3) H 08/16/20 16:58 Medications & Allergies - Medications Allergies/Adverse Reactions: Allergies lisinopril Allergy (Verified 07/27/20 21:47) Unknown Home Medications: Home Medications Medication Instructions Recorded Confirmed Last Taken Type Acetaminophen [Tylenol] 2 tab PO BID 07/27/20 08/19/20 Unknown History Aspirin [Aspirin BABY CHEW TAB] 81 mg PO QDAY 07/27/20 08/19/20 Unknown History Atorvastatin Calcium [Lipitor] 80 mg PO QHS 07/27/20 08/19/20 Unknown History Baclofen 5 mg PO TID 07/27/20 08/19/20 Unknown History Hydralazine HCl 50 mg PO Q8HR 07/27/20 08/19/20 Unknown History Melatonin [Melatonin 3MG TAB 3 mg PO QDAY 07/27/20 08/19/20 Unknown History RAPDIS] NIFEdipine [Nifedipine ER] 60 mg PO QDAY 07/27/20 08/19/20 Unknown History Sennosides [Senna] 2 tab PO DAILY PRN 07/27/20 08/19/20 Unknown History Sertraline HCl [Zoloft] 2 tab PO QAM 07/27/20 08/19/20 Unknown History carvediloL [Coreg] 25 mg PO BID 07/27/20 08/19/20 Unknown History cloNIDine-TTS PATCH [Catapres-Tts 1 patch TD Q7D 07/27/20 08/19/20 Unknown History 0.3mg Patch] donepeziL [Aricept] 10 mg PO QHS 07/27/20 08/19/20 Unknown History levETIRAcetam [Keppra] 500 mg PO BID 07/27/20 08/19/20 Unknown History polyethylene glycoL 3350 [Miralax 17 gm PO QDAY 07/27/20 08/19/20 Unknown History 3350] Losartan [Cozaar] 50 mg PO QDAY #30 tablet 08/01/20 08/19/20 Unknown Rx Lansoprazole Solutab [Prevacid 30 mg FEEDTUBE QDAY #30 tab.rapdis 08/21/20 Unknown Rx Solutab] Sennosides Tab [Senokot] 17.2 mg PO DAILY PRN #30 tablet 08/21/20 Unknown Rx Active Medications: Generic Name Dose Route Start Last Admin Trade Name Freq PRN Reason Stop Dose Admin Acetaminophen 650 mg 08/16/20 18:17 Tylenol PO Q4H PRN Pain MILD(1-3)/Fever >100.5/SAWYER Acetaminophen 650 mg 08/16/20 22:00 08/22/20 11:50 Tylenol PO 650 mg BID RACHEL Administration Albuterol 2.5 mg 08/16/20 18:17 Proventil IH Q4HRT PRN Shortness Of Breath Amlodipine Besylate 7.5 mg 08/17/20 18:00 08/22/20 12:04 Amlodipine PO 7.5 mg QDAY RACHEL Administration Lipase/Protease/Amylase 1 each 08/18/20 10:51 Pancreveena Pena 10,500 Unit FEEDTUBE PRN PRN For Clogged Feeding Tube Aspirin 81 mg 08/17/20 10:00 08/22/20 11:51 Baby Aspirin PO 81 mg QDAY RACHEL Administration Atorvastatin Calcium 80 mg 08/16/20 22:00 08/21/20 21:56 Lipitor PO 80 mg QHS RACHEL Administration Baclofen 5 mg 08/16/20 22:00 08/22/20 05:56 Lioresal PO 5 mg Q8HR RACHEL Administration Carvedilol 25 mg 08/16/20 22:00 08/22/20 12:05 Coreg PO 25 mg BID RACHEL Administration Clonidine HCl 0.3 mg 08/16/20 19:00 08/16/20 22:30 Catapres-Tts Patch TD 0.3 mg Mo RACHEL Administration Dextrose 50 ml 08/16/20 19:05 D50w (25gm) Syringe IV Q30MIN PRN Hypoglycemia Protocol Donepezil HCl 10 mg 08/16/20 22:00 08/21/20 21:57 Aricept PO 10 mg QHS RACHEL Administration Heparin Sodium (Porcine) 5,000 unit 08/16/20 22:00 08/22/20 11:52 Heparin SUB-Q 5,000 unit Q12HR RACHEL Administration Hydralazine HCl 50 mg 08/16/20 22:00 08/22/20 05:54 Apresoline PO Not Given Q8HR RACHEL Levetiracetam 500 mg/ Dextrose 105 mls @ 400 mls/hr 08/19/20 22:00 08/22/20 11:47 IV 400 mls/hr Q12HR RACHEL Administration Sodium Chloride 1,000 mls @ 50 mls/hr 08/20/20 13:00 08/20/20 21:59 Nacl 0.9% 1000 Ml IV 50 mls/hr DIRECT RACHEL Administration Cefepime HCl 2 gm in 100 mls @ 200 mls/hr 08/20/20 22:00 08/22/20 11:47 Cefepime/Ns 2 Gm/100 Ml IV 200 mls/hr Q12HR RACHEL Administration Protocol Insulin Human Lispro 0 unit 08/16/20 20:00 08/22/20 07:30 Humalog SUB-Q Not Given Q6H RACHEL Protocol Lansoprazole 30 mg 08/19/20 13:00 08/22/20 11:52 Prevacid Solutab FEEDTUBE 30 mg QDAY RACHEL Administration Losartan Potassium 50 mg 08/17/20 10:00 08/22/20 12:04 Cozaar PO 50 mg QDAY RACHEL Administration Melatonin 5 mg 08/16/20 22:00 08/21/20 21:56 Melatonin PO 5 mg QHS RACHEL Administration Ondansetron HCl 4 mg 08/16/20 18:17 Zofran IV Q8H PRN Nausea And Vomiting Polyethylene Glycol 17 gm 08/17/20 10:00 08/22/20 11:50 Miralax 3350 PO 17 gm QDAY RACHEL Administration Senna 17.2 mg 08/16/20 18:42 08/18/20 12:57 Senokot PO 17.2 mg DAILY PRN Administration Laxative Effect Sertraline HCl 200 mg 08/17/20 10:00 08/22/20 11:51 Zoloft PO 200 mg QAM RACHEL Administration Simple Syrup 15 ml 08/18/20 10:51 Simple Syrup FEEDTUBE PRN PRN Hypoglycemia Simple Syrup 30 ml 08/18/20 10:51 Simple Syrup FEEDTUBE PRN PRN Hypoglycemia Sodium Bicarbonate 325 mg 08/18/20 10:51 Sodium Bicarbonate FEEDTUBE PRN PRN For Clogged Feeding Tube Sodium Chloride 10 ml 08/16/20 22:00 08/22/20 12:06 Sodium Chloride Flush Syringe 10 Ml IV 10 ml BID RACHEL Administration Sodium Chloride 10 ml 08/16/20 18:17 Sodium Chloride Flush Syringe 10 Ml IV PRN PRN LINE FLUSH Sodium Hypochlorite 1 applic 08/18/20 22:00 08/21/20 21:58 Dakin's Half Strength TP 1 applicator BID RACHEL Administration
[2020-08-22] MEDS: SODIUM CHLORIDE 0.9% 1000 ML 1,000 ML IV SCH (18:36)
[2020-08-22] MEDS: MELATONIN 5 MG TAB PO SCH (21:13)
[2020-08-22] MEDS: DONEPEZIL 10 MG TAB PO SCH (21:13)
[2020-08-22] MEDS: SODIUM HYPOCHLORITE, DAKIN'S 1/2 STRENGTH (0.25%) 473 ML TOPICAL SOLN TP SCH (22:21)
[2020-08-23] MEDS: INSULIN LISPRO 100 UNIT/ML VIAL 3 mL SUB-Q SCH ×3 (05:17→13:30)
[2020-08-23] MEDS: hydrALAZINE 25 MG TAB PO SCH ×3 (05:19→13:39)
[2020-08-23] MEDS: BACLOFEN 10 MG TAB PO SCH ×3 (05:20→13:41)
[2020-08-23 08:40] LABS: Blood Urea Nitrogen 8 mg/dL (7-17); Calcium 7.7 mg/dL (8.4-10.2); Hemolysis Index 33
[2020-08-23 08:56] LABS: BUN/Creatinine Ratio 27
[2020-08-23] MEDS: SODIUM HYPOCHLORITE, DAKIN'S 1/2 STRENGTH (0.25%) 473 ML TOPICAL SOLN TP SCH (09:10)
[2020-08-23] MEDS: carvediloL 25 MG TAB PO SCH (09:14)
[2020-08-23] MEDS: ACETAMINOPHEN 325 MG TAB PO SCH (09:14)
[2020-08-23] MEDS: HEPARIN 5,000 UNIT/1 ML VIAL SUB-Q SCH (09:14)
[2020-08-23] MEDS: amLODIPine 5 MG TAB PO SCH (09:16)
[2020-08-23] MEDS: CEFEPIME/NS 2 GM/100 ML 2 GM/100 ML BAG IV SCH (09:17)
[2020-08-23] MEDS: LOSARTAN 50 MG TAB PO SCH (09:18)
[2020-08-23] MEDS: ASPIRIN 81 MG TAB CHEW PO SCH (09:18)
[2020-08-23] MEDS: SERTRALINE 100 MG TAB PO SCH (09:18)
[2020-08-23] MEDS: POLYETHYLENE GLYCOL 3350 17 GM POWDER PO SCH (09:19)
[2020-08-23] MEDS: LANSOPRAZOLE 30 MG SOLUTAB FEEDTUBE SCH (09:19)
[2020-08-23] MEDS: levETIRAcetam 500 MG in DEXTROSE 5% IN WATER 100 ML IV SCH (09:20)
--- NOTE | 2020-08-23 10:59 | Progress Note ---
Assessment and Plan - Patient Problems (1) Hyperosmolality with hypernatremia Current Visit: Yes Status: Acute Plan to address problem: Sodium improved back to normal. Continue free water replacement. Follow-up sodium as an outpatient. Okay to discharge from renal standpoint. Will sign off (2) Hypokalemia Current Visit: Yes Status: Acute Plan to address problem: Potassium improved but still low normal. Supplement potassium and follow-up levels (3) Neurogenic dysphagia Current Visit: Yes Status: Acute Plan to address problem: Status post PEG. Feeding per GI (4) Urinary tract infection Current Visit: Yes Status: Acute Plan to address problem: Continue antibiotics Subjective Date of service: 08/23/20 Principal diagnosis: Neurogenic Dysphagia Interval history: Patient seen lying in bed. She is nonverbal. She is awake and follows my movements in the room Objective - Exam Narrative Exam: Middle-aged -[place] female lying in bed in no acute distress HEENT: NCAT, pink oral mucous membrane Neck: Supple, no venous distention CVS: S1S2 RRR with no murmur, rub or gallop Chest: Clear to auscultation Abdomen: Protuberant, soft, nontender, no organomegaly, bowel sounds are present Extremities: No edema Neuro: Awake, alert, nonverbal no focal deficits - Vital Signs Vital signs: Vital Signs - 12hr 08/23/20 08/23/20 04:27 05:19 Temperature 97.6 F Pulse Rate 71 71 Respiratory 18 Rate Blood Pressure 115/82 115/82 O2 Sat by Pulse 99 Oximetry - Lab 08/19/20 04:38 08/23/20 07:47 Most recent lab results Calcium 7.7 mg/dL (8.4-10.2) L 08/23/20 07:47 Magnesium 2.50 mg/dL (1.7-2.3) H 08/16/20 16:58 Medications & Allergies - Medications Allergies/Adverse Reactions: Allergies lisinopril Allergy (Verified 07/27/20 21:47) Unknown Home Medications: Home Medications Medication Instructions Recorded Confirmed Last Taken Type Acetaminophen [Tylenol] 2 tab PO BID 07/27/20 08/19/20 Unknown History Aspirin [Aspirin BABY CHEW TAB] 81 mg PO QDAY 07/27/20 08/19/20 Unknown History Atorvastatin Calcium [Lipitor] 80 mg PO QHS 07/27/20 08/19/20 Unknown History Baclofen 5 mg PO TID 07/27/20 08/19/20 Unknown History Hydralazine HCl 50 mg PO Q8HR 07/27/20 08/19/20 Unknown History Melatonin [Melatonin 3MG TAB 3 mg PO QDAY 07/27/20 08/19/20 Unknown History RAPDIS] NIFEdipine [Nifedipine ER] 60 mg PO QDAY 07/27/20 08/19/20 Unknown History Sennosides [Senna] 2 tab PO DAILY PRN 07/27/20 08/19/20 Unknown History Sertraline HCl [Zoloft] 2 tab PO QAM 07/27/20 08/19/20 Unknown History carvediloL [Coreg] 25 mg PO BID 07/27/20 08/19/20 Unknown History cloNIDine-TTS PATCH [Catapres-Tts 1 patch TD Q7D 07/27/20 08/19/20 Unknown History 0.3mg Patch] donepeziL [Aricept] 10 mg PO QHS 07/27/20 08/19/20 Unknown History levETIRAcetam [Keppra] 500 mg PO BID 07/27/20 08/19/20 Unknown History polyethylene glycoL 3350 [Miralax 17 gm PO QDAY 07/27/20 08/19/20 Unknown History 3350] Losartan [Cozaar] 50 mg PO QDAY #30 tablet 08/01/20 08/19/20 Unknown Rx Lansoprazole Solutab [Prevacid 30 mg FEEDTUBE QDAY #30 tab.rapdis 08/21/20 Unknown Rx Solutab] Sennosides Tab [Senokot] 17.2 mg PO DAILY PRN #30 tablet 08/21/20 Unknown Rx Active Medications: Generic Name Dose Route Start Last Admin Trade Name Freq PRN Reason Stop Dose Admin Acetaminophen 650 mg 08/16/20 18:17 Tylenol PO Q4H PRN Pain MILD(1-3)/Fever >100.5/SAWYER Acetaminophen 650 mg 08/16/20 22:00 08/23/20 09:14 Tylenol PO 650 mg BID RACHEL Administration Albuterol 2.5 mg 08/16/20 18:17 Proventil IH Q4HRT PRN Shortness Of Breath Amlodipine Besylate 7.5 mg 08/17/20 18:00 08/23/20 09:16 Amlodipine PO 7.5 mg QDAY RACHEL Administration Lipase/Protease/Amylase 1 each 08/18/20 10:51 Pancreveena Pena 10,500 Unit FEEDTUBE PRN PRN For Clogged Feeding Tube Aspirin 81 mg 08/17/20 10:00 08/23/20 09:18 Baby Aspirin PO 81 mg QDAY RACHEL Administration Atorvastatin Calcium 80 mg 08/16/20 22:00 08/22/20 21:12 Lipitor PO 80 mg QHS RACHEL Administration Baclofen 5 mg 08/16/20 22:00 08/23/20 05:20 Lioresal PO 5 mg Q8HR RACHEL Administration Carvedilol 25 mg 08/16/20 22:00 08/23/20 09:14 Coreg PO 25 mg BID RACHEL Administration Clonidine HCl 0.3 mg 08/16/20 19:00 08/16/20 22:30 Catapres-Tts Patch TD 0.3 mg Mo RACHEL Administration Dextrose 50 ml 08/16/20 19:05 D50w (25gm) Syringe IV Q30MIN PRN Hypoglycemia Protocol Donepezil HCl 10 mg 08/16/20 22:00 08/22/20 21:13 Aricept PO 10 mg QHS RACHEL Administration Heparin Sodium (Porcine) 5,000 unit 08/16/20 22:00 08/23/20 09:14 Heparin SUB-Q 5,000 unit Q12HR RACHEL Administration Hydralazine HCl 50 mg 08/16/20 22:00 08/23/20 05:19 Apresoline PO Not Given Q8HR RACHEL Levetiracetam 500 mg/ Dextrose 105 mls @ 400 mls/hr 08/19/20 22:00 08/23/20 09:20 IV 08/23/20 13:00 400 mls/hr Q12HR RACHEL Administration Sodium Chloride 1,000 mls @ 50 mls/hr 08/20/20 13:00 08/22/20 18:36 Nacl 0.9% 1000 Ml IV 50 mls/hr DIRECT RACHEL Administration Cefepime HCl 2 gm in 100 mls @ 200 mls/hr 08/20/20 22:00 08/23/20 09:17 Cefepime/Ns 2 Gm/100 Ml IV 09/16/20 22:29 200 mls/hr Q12HR RACHEL Administration Protocol Insulin Human Lispro 0 unit 08/16/20 20:00 08/23/20 09:09 Humalog SUB-Q Not Given Q6H [facility] Protocol Lansoprazole 30 mg 08/19/20 13:00 08/23/20 09:19 Prevacid Solutab FEEDTUBE 30 mg QDAY RACHEL Administration Levetiracetam 500 mg 08/23/20 22:00 Keppra FEEDTUBE BID RACHEL Losartan Potassium 50 mg 08/17/20 10:00 08/23/20 09:18 Cozaar PO 50 mg QDAY RACHEL Administration Melatonin 5 mg 08/16/20 22:00 08/22/20 21:13 Melatonin PO 5 mg QHS RACHEL Administration Ondansetron HCl 4 mg 08/16/20 18:17 Zofran IV Q8H PRN Nausea And Vomiting Polyethylene Glycol 17 gm 08/17/20 10:00 08/23/20 09:19 Miralax 3350 PO 17 gm QDAY RACHEL Administration Senna 17.2 mg 08/16/20 18:42 08/18/20 12:57 Senokot PO 17.2 mg DAILY PRN Administration Laxative Effect Sertraline HCl 200 mg 08/17/20 10:00 08/23/20 09:18 Zoloft PO 200 mg QAM RACHEL Administration Simple Syrup 15 ml 08/18/20 10:51 Simple Syrup FEEDTUBE PRN PRN Hypoglycemia Simple Syrup 30 ml 08/18/20 10:51 Simple Syrup FEEDTUBE PRN PRN Hypoglycemia Sodium Bicarbonate 325 mg 08/18/20 10:51 Sodium Bicarbonate FEEDTUBE PRN PRN For Clogged Feeding Tube Sodium Chloride 10 ml 08/16/20 22:00 08/23/20 09:10 Sodium Chloride Flush Syringe 10 Ml IV 10 ml BID RACHEL Administration Sodium Chloride 10 ml 08/16/20 18:17 Sodium Chloride Flush Syringe 10 Ml IV PRN PRN LINE FLUSH Sodium Hypochlorite 1 applic 08/18/20 22:00 08/23/20 09:10 Dakin's Half Strength TP 1 applicator BID RACHEL Administration
[2020-08-23 13:31] VITALS: BP 111/82
[2020-08-23] MEDS ORDERED: levETIRAcetam 500 MG/5 ML ORAL LIQD FEEDTUBE SCH (22:00)
== END 2020-08-23 17:47 | DRG 981 ==
LOC: ED 13:48 → 4A 18:17 → 3A 08-17 07:04
PROVIDERS: ADMIT Internal Medicine; ATTEND Internal Medicine
PROC: 0QB10ZZ Excision of Sacrum, Open Approach (ICD-10-PCS; 2020-08-19)
PROC: 0DH63UZ Insertion of Feeding Device into Stomach, Percutaneous Approach (ICD-10-PCS; principal; 2020-08-20)
PROC: 05HY33Z Insertion of Infusion Device into Upper Vein, Percutaneous Approach (ICD-10-PCS; 2020-08-21)
DX: G93.41 Metabolic encephalopathy (principal); E43 Unspecified severe protein-calorie malnutrition; E87.0 Hyperosmolality and hypernatremia; N39.0 Urinary tract infection, site not specified; R65.10 Systemic inflammatory response syndrome (SIRS) of non-infectious origin without acute organ dysfunction; I69.351 Hemiplegia and hemiparesis following cerebral infarction affecting right dominant side; Z68.1 Body mass index [BMI] 19.9 or less, adult; R13.19 Other dysphagia; I67.2 Cerebral atherosclerosis; F01.50 Vascular dementia, unspecified severity, without behavioral disturbance, psychotic disturbance, mood disturbance, and anxiety; Z20.828 Contact with and (suspected) exposure to other viral communicable diseases; I10 Essential (primary) hypertension; L89.150 Pressure ulcer of sacral region, unstageable; K29.70 Gastritis, unspecified, without bleeding; E87.6 Hypokalemia; E86.0 Dehydration; G40.909 Epilepsy, unspecified, not intractable, without status epilepticus; F32.9 Major depressive disorder, single episode, unspecified; E78.5 Hyperlipidemia, unspecified; I69.320 Aphasia following cerebral infarction; Z82.49 Family history of ischemic heart disease and other diseases of the circulatory system; Z79.899 Other long term (current) drug therapy; Z79.82 Long term (current) use of aspirin
CPT/HCPCS: 36415; 70450; 71045; 74018; 80048; 81001; 82550; 82962; 83735; 84132; 84484; 85025; 85027; 85610; 87040; 87076; 87086; 87116; 87186; 93005; G0378; A6260; A9270-GY; J0690; J0692; J0696; J1644; J1953; J2543; J2704; J3370; J3480; J7030; J7040; J7050; J7070; U0003